=== PATIENT | female | born 1945 | race Caucasian/White ===

== ENCOUNTER 2017-11-13 14:50 | Inpatient (IN) | payer BC, MEDICARE ==
[~2017-11-13] VITALS: Ht 162.6 cm; Wt 96.7 kg
[~2017-11-13 14:50] MED LIST: CLOP75TA15 PO; COENZYME Q10 PO; DILT120T13 PO; DILT180C69 PO; ELIQUIS; ESOM20CA PO; FURO40TA5 PO; INVOKANA; ISOS30TA6 PO; LEVVL SUBCUT; NIAC500T5 PO; OMEP40CA34 PO
[2017-11-13] MEDS ORDERED: DEXTROSE 50% WATER 50ML SYRINGE IV PRN (17:30)
[2017-11-13 17:47] VITALS: BP 114/68
[2017-11-13] MEDS: APIXABAN 5 MG TABLET PO SCH (18:53)
[2017-11-13 20:00] VITALS: BP 104/53
[2017-11-13] MEDS: INSULIN LISPRO 100 UNITS/ML SUBCUT SCH (21:00)
[2017-11-13] MEDS ORDERED: BLOOD SUGAR DIAGNOSTIC STRIP TEST SCH (21:00)
[2017-11-13] MEDS: BLOOD SUGAR DIAGNOSTIC STRIP TEST SCH (21:59)
[2017-11-13] MEDS: PROMETHAZINE/DEXTROMETHORPHAN 6.25-15MG/5ML BOTTLE 120ML PO PRN (23:00)
[2017-11-13] MEDS: INSULIN GLARGINE UD 100 UNITS/ML SYR SUBCUT SCH (23:05)
[2017-11-13] MEDS: IPRATROPIUM/ALBUTEROL 0.5-3(2.5)MG/3ML NEB HHN PRN (23:17)
[2017-11-14] MEDS: IPRATROPIUM/ALBUTEROL 0.5-3(2.5)MG/3ML NEB HHN PRN ×4 (03:52→21:25)
[2017-11-14] MEDS: PANTOPRAZOLE 40MG DR TABLET PO SCH (06:38)
[2017-11-14] MEDS: BLOOD SUGAR DIAGNOSTIC STRIP TEST SCH ×4 (06:38→21:26)
[2017-11-14] MEDS: INSULIN LISPRO 100 UNITS/ML SUBCUT SCH ×4 (06:48→21:29)
[2017-11-14] MEDS ORDERED: OMEPRAZOLE 20MG CAPSULE EXTENDED RELEASE PO SCH (07:00)
[2017-11-14 07:05] LABS: BASOPHILS % 0.9 % (0.0-2.0); EOSINOPHILS % 1.3 % (0.0-5.0); HEMATOCRIT. 25.4 % (36.0-48.0); HEMOGLOBIN. 7.8 g/dL (12.0-16.0); LYMPHOCYTES % 16.2 % (20.0-50.0); MEAN CORPUSCULAR HEMOGLOBIN 24.8 pg (28.0-32.0); MEAN CORPUSCULAR VOLUME 80.2 fL (81.0-99.0); MEAN PLATELET VOLUME 8.1 fl (7.4-10.4); MONOCYTES % 11.1 % (2.0-8.0); NEUTROPHILS % 70.5 % (40.0-76.0); PLATELET 484 x1000/uL (130-400); RED BLOOD CELL COUNT 3.17 mill/uL (4.2-5.4); RED CELL DISTRIBUTION WIDTH 21.2 % (11.6-14.6)
[2017-11-14 07:25] LABS: CLARITY URINE CLOUDY (CLEAR); COLOR URINE YELLOW (YELLOW); KETONES URINE TRACE (NEGATIVE); LEUKOCYTE ESTERASE URINE 1+ (NEGATIVE); NITRITE URINE NEGATIVE (NEGATIVE); OCCULT BLOOD URINE NEGATIVE (NEGATIVE); PROTEIN URINE TRACE (NEGATIVE); SPECIFIC GRAVITY URINE 1.023 (1.005-1.030); UROBILINOGEN URINE 0.2 E.U./dL (0.2-1.0)
[2017-11-14 07:39] LABS: DIGOXIN 0.9 ng/mL (0.9-2.0)
[2017-11-14 08:45] VITALS: BP 112/73
[2017-11-14] MEDS: FUROSEMIDE 80MG TABLET PO SCH (08:53)
[2017-11-14] MEDS: CLOPIDOGREL 75MG TABLET PO SCH (08:53)
[2017-11-14] MEDS: DOCUSATE SODIUM 250MG CAPSULE PO SCH (08:53)
[2017-11-14] MEDS: FERROUS SULFATE 325MG TABLET PO SCH ×3 (08:54→17:29)
[2017-11-14] MEDS: APIXABAN 5 MG TABLET PO SCH ×2 (08:54→17:29)
[2017-11-14] MEDS: AZITHROMYCIN 500 MG TABLET PO SCH (09:36)
[2017-11-14] MEDS: DILTIAZEM HCL 120MG CAPSULE CD 24HR PO SCH (09:53)
[2017-11-14] MEDS: CEFTRIAXONE 2 G in DEXTROSE 5% WATER 50 ML IV SCH (12:18)
[2017-11-14] MEDS: PROMETHAZINE/DEXTROMETHORPHAN 6.25-15MG/5ML BOTTLE 120ML PO PRN ×2 (13:34→22:54)
[2017-11-14] MEDS ORDERED: BARIUM SULFATE 176 GM SUSP.RECON ONE (14:14)
[2017-11-14] MEDS: DIGOXIN 125MCG TABLET PO SCH (17:30)
[2017-11-14 20:00] VITALS: BP 104/51
[2017-11-14] MEDS: INSULIN GLARGINE UD 100 UNITS/ML SYR SUBCUT SCH (21:30)
[2017-11-15] MEDS: PANTOPRAZOLE 40MG DR TABLET PO SCH (06:28)
[2017-11-15] MEDS: BLOOD SUGAR DIAGNOSTIC STRIP TEST SCH ×4 (06:31→21:24)
[2017-11-15 06:54] LABS: BASOPHILS % 0.8 % (0.0-2.0); EOSINOPHILS % 1.8 % (0.0-5.0); HEMATOCRIT. 26.8 % (36.0-48.0); LYMPHOCYTES % 13.3 % (20.0-50.0); MEAN CORPUSCULAR HEMOGLOBIN 24.3 pg (28.0-32.0); MEAN CORPUSCULAR VOLUME 81.3 fL (81.0-99.0); MEAN PLATELET VOLUME 8.1 fl (7.4-10.4); MONOCYTES % 10.4 % (2.0-8.0); NEUTROPHILS % 73.7 % (40.0-76.0); PLATELET 450 x1000/uL (130-400); RED BLOOD CELL COUNT 3.29 mill/uL (4.2-5.4); RED CELL DISTRIBUTION WIDTH 21.2 % (11.6-14.6)
[2017-11-15] MEDS: INSULIN LISPRO 100 UNITS/ML SUBCUT SCH ×4 (07:09→21:34)
[2017-11-15 08:00] VITALS: BP 104/51
[2017-11-15] MEDS ORDERED: POTASSIUM CHLORIDE 20MEQ TABLET SR PO ONE (08:00)
[2017-11-15] MEDS: POTASSIUM CHLORIDE 20MEQ TABLET SR PO SCH (08:48)
[2017-11-15] MEDS: DOCUSATE SODIUM 250MG CAPSULE PO SCH (08:49)
[2017-11-15] MEDS: FERROUS SULFATE 325MG TABLET PO SCH ×3 (08:49→16:30)
[2017-11-15] MEDS: FUROSEMIDE 80MG TABLET PO SCH (08:49)
[2017-11-15] MEDS: AZITHROMYCIN 500 MG TABLET PO SCH (08:49)
[2017-11-15] MEDS: APIXABAN 5 MG TABLET PO SCH ×2 (08:50→16:30)
[2017-11-15] MEDS: CLOPIDOGREL 75MG TABLET PO SCH (08:50)
[2017-11-15] MEDS: DILTIAZEM HCL 120MG CAPSULE CD 24HR PO SCH (08:54)
[2017-11-15] MEDS: PROMETHAZINE/DEXTROMETHORPHAN 6.25-15MG/5ML BOTTLE 120ML PO PRN (08:54)
[2017-11-15] MEDS: CEFTRIAXONE 2 G in DEXTROSE 5% WATER 50 ML IV SCH (11:27)
[2017-11-15] MEDS: IPRATROPIUM/ALBUTEROL 0.5-3(2.5)MG/3ML NEB HHN SCH (20:05)
[2017-11-15] MEDS: INSULIN GLARGINE UD 100 UNITS/ML SYR SUBCUT SCH (21:35)
[2017-11-16] MEDS: IPRATROPIUM/ALBUTEROL 0.5-3(2.5)MG/3ML NEB HHN SCH ×4 (00:50→21:50)
[2017-11-16] MEDS: BLOOD SUGAR DIAGNOSTIC STRIP TEST SCH ×4 (06:53→21:36)
[2017-11-16] MEDS: INSULIN LISPRO 100 UNITS/ML SUBCUT SCH ×4 (06:53→21:00)
[2017-11-16] MEDS: PANTOPRAZOLE 40MG DR TABLET PO SCH (06:53)
[2017-11-16 08:00] VITALS: BP 105/46
[2017-11-16] MEDS: DOCUSATE SODIUM 250MG CAPSULE PO SCH (10:21)
[2017-11-16] MEDS: FERROUS SULFATE 325MG TABLET PO SCH ×3 (10:22→18:10)
[2017-11-16] MEDS: CLOPIDOGREL 75MG TABLET PO SCH (10:22)
[2017-11-16] MEDS: POTASSIUM CHLORIDE 20MEQ TABLET SR PO SCH (10:22)
[2017-11-16] MEDS: APIXABAN 5 MG TABLET PO SCH ×2 (10:22→18:10)
[2017-11-16] MEDS: FUROSEMIDE 80MG TABLET PO SCH (10:23)
[2017-11-16] MEDS: DILTIAZEM HCL 120MG CAPSULE CD 24HR PO SCH (10:23)
[2017-11-16] MEDS: PROMETHAZINE/DEXTROMETHORPHAN 6.25-15MG/5ML BOTTLE 120ML PO PRN (12:39)
[2017-11-16] MEDS: DIGOXIN 125MCG TABLET PO SCH (18:11)
[2017-11-16 20:00] VITALS: BP 108/56
[2017-11-16] MEDS: INSULIN GLARGINE UD 100 UNITS/ML SYR SUBCUT SCH (21:36)
[2017-11-17] MEDS: IPRATROPIUM/ALBUTEROL 0.5-3(2.5)MG/3ML NEB HHN SCH ×5 (01:13→21:13)
[2017-11-17] MEDS: BLOOD SUGAR DIAGNOSTIC STRIP TEST SCH ×4 (06:27→21:38)
[2017-11-17] MEDS: INSULIN LISPRO 100 UNITS/ML SUBCUT SCH ×4 (06:31→21:53)
[2017-11-17] MEDS: PANTOPRAZOLE 40MG DR TABLET PO SCH (06:31)
[2017-11-17 07:17] LABS: BASOPHILS % 0.7 % (0.0-2.0); EOSINOPHILS % 2.3 % (0.0-5.0); HEMOGLOBIN. 7.4 g/dL (12.0-16.0); LYMPHOCYTES % 16.3 % (20.0-50.0); MEAN CORPUSCULAR HEMOGLOBIN 25.5 pg (28.0-32.0); MEAN CORPUSCULAR VOLUME 82.1 fL (81.0-99.0); MEAN PLATELET VOLUME 7.9 fl (7.4-10.4); MONOCYTES % 9.1 % (2.0-8.0); NEUTROPHILS % 71.6 % (40.0-76.0); PLATELET 361 x1000/uL (130-400); RED BLOOD CELL COUNT 2.92 mill/uL (4.2-5.4); RED CELL DISTRIBUTION WIDTH 21.9 % (11.6-14.6)
[2017-11-17 07:41] LABS: CHLORIDE 106 mEq/L (98-107)
[2017-11-17 08:00] VITALS: BP 113/61
[2017-11-17] MEDS: FUROSEMIDE 80MG TABLET PO SCH (09:01)
[2017-11-17] MEDS: DILTIAZEM HCL 120MG CAPSULE CD 24HR PO SCH (09:03)
[2017-11-17] MEDS: APIXABAN 5 MG TABLET PO SCH ×2 (09:03→17:15)
[2017-11-17] MEDS: POTASSIUM CHLORIDE 20MEQ TABLET SR PO SCH (09:04)
[2017-11-17] MEDS: DOCUSATE SODIUM 250MG CAPSULE PO SCH (09:04)
[2017-11-17] MEDS: CLOPIDOGREL 75MG TABLET PO SCH (09:04)
[2017-11-17] MEDS: FERROUS SULFATE 325MG TABLET PO SCH ×3 (09:04→17:15)
[2017-11-17] MEDS: PROMETHAZINE/DEXTROMETHORPHAN 6.25-15MG/5ML BOTTLE 120ML PO PRN (13:41)
[2017-11-17] MEDS: INSULIN GLARGINE UD 100 UNITS/ML SYR SUBCUT SCH (21:53)
[2017-11-18] MEDS: PROMETHAZINE/DEXTROMETHORPHAN 6.25-15MG/5ML BOTTLE 120ML PO PRN ×4 (01:08→21:45)
[2017-11-18] MEDS: IPRATROPIUM/ALBUTEROL 0.5-3(2.5)MG/3ML NEB HHN SCH ×4 (02:32→21:21)
[2017-11-18] MEDS: BLOOD SUGAR DIAGNOSTIC STRIP TEST SCH ×4 (06:08→21:30)
[2017-11-18] MEDS: PANTOPRAZOLE 40MG DR TABLET PO SCH (06:18)
[2017-11-18] MEDS: INSULIN LISPRO 100 UNITS/ML SUBCUT SCH ×4 (06:19→21:52)
[2017-11-18 08:00] VITALS: BP 110/57
[2017-11-18 08:11] LABS: HEMATOCRIT. 24.3 % (36.0-48.0); HEMOGLOBIN. 7.4 g/dL (12.0-16.0); MEAN CORPUSCULAR HEMOGLOBIN 24.6 pg (28.0-32.0); MEAN CORPUSCULAR VOLUME 80.5 fL (81.0-99.0); MEAN PLATELET VOLUME 8.2 fl (7.4-10.4); PLATELET 356 x1000/uL (130-400); RED BLOOD CELL COUNT 3.01 mill/uL (4.2-5.4); RED CELL DISTRIBUTION WIDTH 21.5 % (11.6-14.6)
[2017-11-18 08:42] LABS: CHLORIDE 104 mEq/L (98-107)
[2017-11-18] MEDS: FUROSEMIDE 80MG TABLET PO SCH (08:44)
[2017-11-18] MEDS: FERROUS SULFATE 325MG TABLET PO SCH ×3 (08:44→17:40)
[2017-11-18] MEDS: DOCUSATE SODIUM 250MG CAPSULE PO SCH (08:44)
[2017-11-18] MEDS: POTASSIUM CHLORIDE 20MEQ TABLET SR PO SCH (08:44)
[2017-11-18] MEDS: CLOPIDOGREL 75MG TABLET PO SCH (08:44)
[2017-11-18] MEDS: APIXABAN 5 MG TABLET PO SCH ×2 (08:44→17:40)
[2017-11-18] MEDS: DILTIAZEM HCL 120MG CAPSULE CD 24HR PO SCH (08:46)
[2017-11-18] MEDS: DIGOXIN 125MCG TABLET PO SCH (17:40)
[2017-11-18 20:00] VITALS: BP 102/62
[2017-11-18] MEDS: INSULIN GLARGINE UD 100 UNITS/ML SYR SUBCUT SCH (21:49)
[2017-11-18 22:22] LABS: NUCLEATED RED BLOOD CELLS 1 /100 WBC; PLATELET ESTIMATE NORMAL
[2017-11-19] MEDS: IPRATROPIUM/ALBUTEROL 0.5-3(2.5)MG/3ML NEB HHN SCH ×4 (01:28→22:15)
[2017-11-19] MEDS: BLOOD SUGAR DIAGNOSTIC STRIP TEST SCH ×4 (06:08→21:00)
[2017-11-19] MEDS: PANTOPRAZOLE 40MG DR TABLET PO SCH (06:12)
[2017-11-19 06:43] LABS: HEMATOCRIT. 23.8 % (36.0-48.0); HEMOGLOBIN. 7.3 g/dL (12.0-16.0); MEAN CORPUSCULAR HEMOGLOBIN 24.7 pg (28.0-32.0); MEAN CORPUSCULAR VOLUME 80.9 fL (81.0-99.0); MEAN PLATELET VOLUME 8.3 fl (7.4-10.4); PLATELET 327 x1000/uL (130-400); RED BLOOD CELL COUNT 2.94 mill/uL (4.2-5.4); RED CELL DISTRIBUTION WIDTH 21.9 % (11.6-14.6)
[2017-11-19] MEDS: INSULIN LISPRO 100 UNITS/ML SUBCUT SCH ×4 (06:48→22:02)
[2017-11-19 07:00] LABS: CHLORIDE 102 mEq/L (98-107)
[2017-11-19 08:33] VITALS: BP 98/45
[2017-11-19 08:57] LABS: PLATELET ESTIMATE NORMAL
[2017-11-19] MEDS: DOCUSATE SODIUM 250MG CAPSULE PO SCH (09:07)
[2017-11-19] MEDS: FERROUS SULFATE 325MG TABLET PO SCH ×3 (09:07→17:02)
[2017-11-19] MEDS: APIXABAN 5 MG TABLET PO SCH ×2 (09:07→17:02)
[2017-11-19] MEDS: POTASSIUM CHLORIDE 20MEQ TABLET SR PO SCH (09:07)
[2017-11-19] MEDS: CLOPIDOGREL 75MG TABLET PO SCH (09:07)
[2017-11-19] MEDS: DILTIAZEM HCL 120MG CAPSULE CD 24HR PO SCH (09:09)
[2017-11-19] MEDS: FUROSEMIDE 80MG TABLET PO SCH (09:09)
[2017-11-19] MEDS: PROMETHAZINE/DEXTROMETHORPHAN 6.25-15MG/5ML BOTTLE 120ML PO PRN ×2 (09:22→21:55)
[2017-11-19] MEDS: FLUTICASONE PROPIONATE 50MCG/SPRAY BOTTLE BOTHNSTRLS SCH ×2 (17:06→21:56)
[2017-11-19 20:00] VITALS: BP 104/50
[2017-11-19] MEDS: INSULIN GLARGINE UD 100 UNITS/ML SYR SUBCUT SCH (22:01)
[2017-11-20] MEDS: THROAT LOZENGES-BENZOCAINE/MENTH/CETYLPYRD CL LOZENGES MM PRN ×2 (00:01→20:11)
[2017-11-20] MEDS: IPRATROPIUM/ALBUTEROL 0.5-3(2.5)MG/3ML NEB HHN SCH ×4 (04:20→22:16)
[2017-11-20] MEDS: BLOOD SUGAR DIAGNOSTIC STRIP TEST SCH ×4 (06:03→21:00)
[2017-11-20] MEDS: INSULIN LISPRO 100 UNITS/ML SUBCUT SCH ×4 (06:55→22:14)
[2017-11-20 08:00] VITALS: BP 110/65
[2017-11-20] MEDS: DOCUSATE SODIUM 250MG CAPSULE PO SCH (09:37)
[2017-11-20] MEDS: FERROUS SULFATE 325MG TABLET PO SCH ×3 (09:38→17:29)
[2017-11-20] MEDS: DILTIAZEM HCL 120MG CAPSULE CD 24HR PO SCH (09:39)
[2017-11-20] MEDS: FUROSEMIDE 80MG TABLET PO SCH (09:39)
[2017-11-20] MEDS: CLOPIDOGREL 75MG TABLET PO SCH (09:39)
[2017-11-20] MEDS: FAMOTIDINE 20MG TABLET PO SCH ×2 (09:39→22:09)
[2017-11-20] MEDS: POTASSIUM CHLORIDE 20MEQ TABLET SR PO SCH (09:39)
[2017-11-20] MEDS: APIXABAN 5 MG TABLET PO SCH ×2 (09:40→17:29)
[2017-11-20] MEDS: FLUTICASONE PROPIONATE 50MCG/SPRAY BOTTLE BOTHNSTRLS SCH ×2 (09:40→22:09)
[2017-11-20] MEDS: PROMETHAZINE/DEXTROMETHORPHAN 6.25-15MG/5ML BOTTLE 120ML PO PRN (10:30)
[2017-11-20] MEDS: DIGOXIN 125MCG TABLET PO SCH (17:29)
[2017-11-20 20:00] VITALS: BP 112/73
[2017-11-20] MEDS: INSULIN GLARGINE UD 100 UNITS/ML SYR SUBCUT SCH (22:16)
[2017-11-21] MEDS: PROMETHAZINE/DEXTROMETHORPHAN 6.25-15MG/5ML BOTTLE 120ML PO PRN ×2 (01:34→08:57)
[2017-11-21] MEDS: IPRATROPIUM/ALBUTEROL 0.5-3(2.5)MG/3ML NEB HHN SCH ×4 (02:44→21:08)
[2017-11-21] MEDS: BLOOD SUGAR DIAGNOSTIC STRIP TEST SCH ×4 (06:32→20:07)
[2017-11-21 08:23] VITALS: BP 91/44
[2017-11-21] MEDS: POTASSIUM CHLORIDE 20MEQ TABLET SR PO SCH (08:55)
[2017-11-21] MEDS: FAMOTIDINE 20MG TABLET PO SCH ×2 (08:55→21:49)
[2017-11-21] MEDS: INSULIN LISPRO 100 UNITS/ML SUBCUT SCH ×4 (08:56→21:50)
[2017-11-21] MEDS: CLOPIDOGREL 75MG TABLET PO SCH (08:56)
[2017-11-21] MEDS: FERROUS SULFATE 325MG TABLET PO SCH ×3 (08:56→18:07)
[2017-11-21] MEDS: DOCUSATE SODIUM 250MG CAPSULE PO SCH (08:56)
[2017-11-21] MEDS: FUROSEMIDE 80MG TABLET PO SCH (08:56)
[2017-11-21] MEDS: DILTIAZEM HCL 120MG CAPSULE CD 24HR PO SCH (08:56)
[2017-11-21] MEDS: APIXABAN 5 MG TABLET PO SCH ×2 (08:56→18:07)
[2017-11-21] MEDS: FLUTICASONE PROPIONATE 50MCG/SPRAY BOTTLE BOTHNSTRLS SCH ×2 (08:57→21:52)
[2017-11-21] MEDS: THROAT LOZENGES-BENZOCAINE/MENTH/CETYLPYRD CL LOZENGES MM PRN ×2 (13:08→20:07)
[2017-11-21 20:00] VITALS: BP 107/44
[2017-11-21] MEDS: INSULIN GLARGINE UD 100 UNITS/ML SYR SUBCUT SCH (21:50)
[2017-11-22] MEDS: IPRATROPIUM/ALBUTEROL 0.5-3(2.5)MG/3ML NEB HHN SCH ×4 (01:10→20:52)
[2017-11-22] MEDS: BLOOD SUGAR DIAGNOSTIC STRIP TEST SCH ×4 (07:03→21:07)
[2017-11-22] MEDS: INSULIN LISPRO 100 UNITS/ML SUBCUT SCH ×4 (07:04→21:11)
[2017-11-22 08:00] VITALS: BP 96/66
[2017-11-22] MEDS: DOCUSATE SODIUM 250MG CAPSULE PO SCH (09:39)
[2017-11-22] MEDS: FAMOTIDINE 20MG TABLET PO SCH ×2 (09:39→21:07)
[2017-11-22] MEDS: CLOPIDOGREL 75MG TABLET PO SCH (09:39)
[2017-11-22] MEDS: APIXABAN 5 MG TABLET PO SCH ×2 (09:40→17:42)
[2017-11-22] MEDS: FERROUS SULFATE 325MG TABLET PO SCH ×3 (09:40→17:42)
[2017-11-22] MEDS: POTASSIUM CHLORIDE 20MEQ TABLET SR PO SCH (09:40)
[2017-11-22] MEDS: FUROSEMIDE 80MG TABLET PO SCH (09:40)
[2017-11-22] MEDS: DILTIAZEM HCL 90MG CAPSULE SR 12HR PO SCH (09:41)
[2017-11-22] MEDS: FLUTICASONE PROPIONATE 50MCG/SPRAY BOTTLE BOTHNSTRLS SCH ×2 (09:49→21:07)
[2017-11-22] MEDS: PROMETHAZINE/DEXTROMETHORPHAN 6.25-15MG/5ML BOTTLE 120ML PO PRN ×2 (09:50)
[2017-11-22 09:52] VITALS: BP 115/67
[2017-11-22] MEDS: DIGOXIN 125MCG TABLET PO SCH (17:42)
[2017-11-22] MEDS: THROAT LOZENGES-BENZOCAINE/MENTH/CETYLPYRD CL LOZENGES MM PRN (17:44)
[2017-11-22 20:00] VITALS: BP 115/47
[2017-11-22] MEDS: INSULIN GLARGINE UD 100 UNITS/ML SYR SUBCUT SCH (21:12)
[2017-11-23] MEDS: IPRATROPIUM/ALBUTEROL 0.5-3(2.5)MG/3ML NEB HHN SCH ×4 (02:23→21:23)
[2017-11-23] MEDS: PROMETHAZINE/DEXTROMETHORPHAN 6.25-15MG/5ML BOTTLE 120ML PO PRN (02:42)
[2017-11-23] MEDS: THROAT LOZENGES-BENZOCAINE/MENTH/CETYLPYRD CL LOZENGES MM PRN ×2 (06:15→19:45)
[2017-11-23] MEDS: BLOOD SUGAR DIAGNOSTIC STRIP TEST SCH ×4 (06:18→20:59)
[2017-11-23] MEDS: INSULIN LISPRO 100 UNITS/ML SUBCUT SCH ×4 (06:46→21:14)
[2017-11-23 08:00] VITALS: BP 117/69
[2017-11-23] MEDS: DOCUSATE SODIUM 250MG CAPSULE PO SCH (09:38)
[2017-11-23] MEDS: FUROSEMIDE 80MG TABLET PO SCH (09:38)
[2017-11-23] MEDS: APIXABAN 5 MG TABLET PO SCH ×2 (09:38→17:25)
[2017-11-23] MEDS: FAMOTIDINE 20MG TABLET PO SCH (09:38)
[2017-11-23] MEDS: POTASSIUM CHLORIDE 20MEQ TABLET SR PO SCH (09:38)
[2017-11-23] MEDS: DILTIAZEM HCL 90MG CAPSULE SR 12HR PO SCH (09:39)
[2017-11-23] MEDS: CLOPIDOGREL 75MG TABLET PO SCH (09:39)
[2017-11-23] MEDS: FLUTICASONE PROPIONATE 50MCG/SPRAY BOTTLE BOTHNSTRLS SCH ×2 (09:44→21:00)
[2017-11-23] MEDS: FERROUS SULFATE 325MG TABLET PO SCH ×3 (09:44→17:25)
[2017-11-23] MEDS: PHENAZOPYRIDINE HCL 100MG TABLET PO SCH ×2 (12:21→17:25)
[2017-11-23] MEDS: LEVOFLOXACIN 500MG TABLET PO SCH (12:21)
[2017-11-23] MEDS ORDERED: FAMOTIDINE 20MG TABLET PO NR (20:00)
[2017-11-23 20:10] VITALS: BP 100/48
[2017-11-23] MEDS: INSULIN GLARGINE UD 100 UNITS/ML SYR SUBCUT SCH (21:14)
[2017-11-24] MEDS: PROMETHAZINE/DEXTROMETHORPHAN 6.25-15MG/5ML BOTTLE 120ML PO PRN ×2 (00:32→21:45)
[2017-11-24] MEDS: IPRATROPIUM/ALBUTEROL 0.5-3(2.5)MG/3ML NEB HHN SCH ×4 (01:21→22:02)
[2017-11-24] MEDS: PANTOPRAZOLE 40MG DR TABLET PO SCH (06:12)
[2017-11-24] MEDS: BLOOD SUGAR DIAGNOSTIC STRIP TEST SCH ×4 (06:12→21:37)
[2017-11-24] MEDS: THROAT LOZENGES-BENZOCAINE/MENTH/CETYLPYRD CL LOZENGES MM PRN (06:13)
[2017-11-24 06:52] LABS: BASOPHILS % 0.5 % (0.0-2.0); EOSINOPHILS % 3.6 % (0.0-5.0); HEMATOCRIT. 24.2 % (36.0-48.0); HEMOGLOBIN. 7.4 g/dL (12.0-16.0); LYMPHOCYTES % 16.3 % (20.0-50.0); MEAN CORPUSCULAR HEMOGLOBIN 24.9 pg (28.0-32.0); MEAN CORPUSCULAR VOLUME 81.3 fL (81.0-99.0); MEAN PLATELET VOLUME 8.4 fl (7.4-10.4); NEUTROPHILS % 70.6 % (40.0-76.0); PLATELET 307 x1000/uL (130-400); RED BLOOD CELL COUNT 2.98 mill/uL (4.2-5.4); RED CELL DISTRIBUTION WIDTH 22.3 % (11.6-14.6)
[2017-11-24] MEDS: INSULIN LISPRO 100 UNITS/ML SUBCUT SCH ×4 (07:07→21:49)
[2017-11-24 08:21] VITALS: BP 114/56
[2017-11-24] MEDS: POTASSIUM CHLORIDE 20MEQ TABLET SR PO SCH (08:47)
[2017-11-24] MEDS: DOCUSATE SODIUM 250MG CAPSULE PO SCH (08:47)
[2017-11-24] MEDS: FERROUS SULFATE 325MG TABLET PO SCH ×3 (08:47→17:18)
[2017-11-24] MEDS: PHENAZOPYRIDINE HCL 100MG TABLET PO SCH ×3 (08:47→17:17)
[2017-11-24] MEDS: APIXABAN 5 MG TABLET PO SCH ×2 (08:48→17:17)
[2017-11-24] MEDS: CLOPIDOGREL 75MG TABLET PO SCH (08:48)
[2017-11-24] MEDS: DILTIAZEM HCL 90MG CAPSULE SR 12HR PO SCH (08:48)
[2017-11-24] MEDS: FUROSEMIDE 80MG TABLET PO SCH (08:48)
[2017-11-24] MEDS: FLUTICASONE PROPIONATE 50MCG/SPRAY BOTTLE BOTHNSTRLS SCH ×2 (08:49→21:00)
[2017-11-24] MEDS: LEVOFLOXACIN 500MG TABLET PO SCH (10:47)
[2017-11-24] MEDS: DIGOXIN 125MCG TABLET PO SCH (17:18)
[2017-11-24 20:00] VITALS: BP 110/45
[2017-11-24] MEDS: INSULIN GLARGINE UD 100 UNITS/ML SYR SUBCUT SCH (21:49)
[2017-11-25] MEDS: IPRATROPIUM/ALBUTEROL 0.5-3(2.5)MG/3ML NEB HHN SCH ×4 (03:40→21:46)
[2017-11-25] MEDS: PROMETHAZINE/DEXTROMETHORPHAN 6.25-15MG/5ML BOTTLE 120ML PO PRN ×2 (06:20→19:55)
[2017-11-25] MEDS: PANTOPRAZOLE 40MG DR TABLET PO SCH (06:20)
[2017-11-25] MEDS: INSULIN LISPRO 100 UNITS/ML SUBCUT SCH ×4 (06:24→21:00)
[2017-11-25] MEDS: BLOOD SUGAR DIAGNOSTIC STRIP TEST SCH ×4 (06:40→21:31)
[2017-11-25 08:00] VITALS: BP 93/45
[2017-11-25] MEDS: FUROSEMIDE 80MG TABLET PO SCH (09:00)
[2017-11-25] MEDS: DILTIAZEM HCL 90MG CAPSULE SR 12HR PO SCH (09:00)
[2017-11-25] MEDS: APIXABAN 5 MG TABLET PO SCH ×2 (09:05→17:03)
[2017-11-25] MEDS: POTASSIUM CHLORIDE 20MEQ TABLET SR PO SCH (09:06)
[2017-11-25] MEDS: FERROUS SULFATE 325MG TABLET PO SCH ×3 (09:06→17:03)
[2017-11-25] MEDS: DOCUSATE SODIUM 250MG CAPSULE PO SCH (09:06)
[2017-11-25] MEDS: PHENAZOPYRIDINE HCL 100MG TABLET PO SCH ×2 (09:06→12:24)
[2017-11-25] MEDS: CLOPIDOGREL 75MG TABLET PO SCH (09:06)
[2017-11-25 09:15] LABS: BASOPHILS % 0.4 % (0.0-2.0); EOSINOPHILS % 3.1 % (0.0-5.0); HEMATOCRIT. 27.4 % (36.0-48.0); HEMOGLOBIN. 8.1 g/dL (12.0-16.0); MEAN CORPUSCULAR HEMOGLOBIN 24.4 pg (28.0-32.0); MEAN CORPUSCULAR VOLUME 81.9 fL (81.0-99.0); MEAN PLATELET VOLUME 8.4 fl (7.4-10.4); NEUTROPHILS % 74.5 % (40.0-76.0); PLATELET 364 x1000/uL (130-400); RED BLOOD CELL COUNT 3.34 mill/uL (4.2-5.4); RED CELL DISTRIBUTION WIDTH 22.6 % (11.6-14.6)
[2017-11-25] MEDS: LEVOFLOXACIN 500MG TABLET PO SCH (11:19)
[2017-11-25] MEDS ORDERED: POTASSIUM CHLORIDE 20MEQ TABLET SR PO SCH (11:45)
[2017-11-25] MEDS ORDERED: METOLAZONE 10MG TABLET PO SCH (11:45)
[2017-11-25 20:52] VITALS: BP 102/57
[2017-11-25] MEDS: INSULIN GLARGINE UD 100 UNITS/ML SYR SUBCUT SCH (21:35)
[2017-11-26] MEDS: IPRATROPIUM/ALBUTEROL 0.5-3(2.5)MG/3ML NEB HHN SCH ×4 (03:30→20:54)
[2017-11-26] MEDS: THROAT LOZENGES-BENZOCAINE/MENTH/CETYLPYRD CL LOZENGES MM PRN ×2 (04:47→22:15)
[2017-11-26] MEDS: BLOOD SUGAR DIAGNOSTIC STRIP TEST SCH ×4 (06:16→21:00)
[2017-11-26] MEDS: PANTOPRAZOLE 40MG DR TABLET PO SCH (06:16)
[2017-11-26] MEDS: INSULIN LISPRO 100 UNITS/ML SUBCUT SCH ×4 (06:25→22:20)
[2017-11-26 08:00] VITALS: BP 111/84
[2017-11-26] MEDS: DILTIAZEM HCL 90MG CAPSULE SR 12HR PO SCH (09:56)
[2017-11-26] MEDS: APIXABAN 5 MG TABLET PO SCH ×2 (09:57→18:19)
[2017-11-26] MEDS: DOCUSATE SODIUM 250MG CAPSULE PO SCH (09:57)
[2017-11-26] MEDS: FERROUS SULFATE 325MG TABLET PO SCH ×3 (09:57→18:19)
[2017-11-26] MEDS: FUROSEMIDE 80MG TABLET PO SCH (09:58)
[2017-11-26] MEDS: POTASSIUM CHLORIDE 20MEQ TABLET SR PO SCH (10:07)
[2017-11-26] MEDS: CLOPIDOGREL 75MG TABLET PO SCH (10:07)
[2017-11-26] MEDS: LEVOFLOXACIN 500MG TABLET PO SCH (11:27)
[2017-11-26] MEDS: DIGOXIN 125MCG TABLET PO SCH (18:19)
[2017-11-26 20:00] VITALS: BP 117/61
[2017-11-26] MEDS ORDERED: FLUTICASONE PROPIONATE 50MCG/SPRAY BOTTLE BOTHNSTRLS SCH (21:00)
[2017-11-26] MEDS: FLUTICASONE PROPIONATE 50MCG/SPRAY BOTTLE BOTHNSTRLS SCH (22:15)
[2017-11-26] MEDS: INSULIN GLARGINE UD 100 UNITS/ML SYR SUBCUT SCH (22:22)
[2017-11-27] MEDS: IPRATROPIUM/ALBUTEROL 0.5-3(2.5)MG/3ML NEB HHN SCH ×5 (02:14→21:26)
[2017-11-27] MEDS: BLOOD SUGAR DIAGNOSTIC STRIP TEST SCH ×4 (05:48→21:00)
[2017-11-27] MEDS: PROMETHAZINE/DEXTROMETHORPHAN 6.25-15MG/5ML BOTTLE 120ML PO PRN (06:01)
[2017-11-27] MEDS: PANTOPRAZOLE 40MG DR TABLET PO SCH (06:02)
[2017-11-27] MEDS: INSULIN LISPRO 100 UNITS/ML SUBCUT SCH ×4 (06:08→22:10)
[2017-11-27 08:00] VITALS: BP 114/69
[2017-11-27] MEDS ORDERED: ONDANSETRON 4MG ODT PO PRN (09:00)
[2017-11-27] MEDS: FERROUS SULFATE 325MG TABLET PO SCH ×3 (09:44→17:18)
[2017-11-27] MEDS: DOCUSATE SODIUM 250MG CAPSULE PO SCH (09:44)
[2017-11-27] MEDS: POTASSIUM CHLORIDE 20MEQ TABLET SR PO SCH (09:47)
[2017-11-27] MEDS: FUROSEMIDE 80MG TABLET PO SCH (09:47)
[2017-11-27] MEDS: CLOPIDOGREL 75MG TABLET PO SCH (09:47)
[2017-11-27] MEDS: APIXABAN 5 MG TABLET PO SCH ×2 (09:47→17:18)
[2017-11-27] MEDS: DILTIAZEM HCL 90MG CAPSULE SR 12HR PO SCH (09:49)
[2017-11-27] MEDS: FLUTICASONE PROPIONATE 50MCG/SPRAY BOTTLE BOTHNSTRLS SCH ×2 (09:57→21:59)
[2017-11-27] MEDS: LEVOFLOXACIN 500MG TABLET PO SCH (10:14)
[2017-11-27] MEDS ORDERED: FURO80TA3 PO (14:14)
[2017-11-27] MEDS ORDERED: POTA20TA82 PO (14:14)
[2017-11-27 20:00] VITALS: BP 108/69
[2017-11-27] MEDS: THROAT LOZENGES-BENZOCAINE/MENTH/CETYLPYRD CL LOZENGES MM PRN (21:59)
[2017-11-27] MEDS: INSULIN GLARGINE UD 100 UNITS/ML SYR SUBCUT SCH (22:06)
[2017-11-28] MEDS: IPRATROPIUM/ALBUTEROL 0.5-3(2.5)MG/3ML NEB HHN SCH ×3 (01:08→13:56)
[2017-11-28] MEDS: BLOOD SUGAR DIAGNOSTIC STRIP TEST SCH ×3 (06:04→17:20)
[2017-11-28] MEDS: PANTOPRAZOLE 40MG DR TABLET PO SCH (06:04)
[2017-11-28] MEDS: INSULIN LISPRO 100 UNITS/ML SUBCUT SCH ×3 (06:04→17:00)
[2017-11-28 08:00] VITALS: BP 103/68
[2017-11-28] MEDS: DILTIAZEM HCL 90MG CAPSULE SR 12HR PO SCH (09:00)
[2017-11-28] MEDS: DOCUSATE SODIUM 250MG CAPSULE PO SCH (09:27)
[2017-11-28] MEDS: POTASSIUM CHLORIDE 20MEQ TABLET SR PO SCH (09:28)
[2017-11-28] MEDS: APIXABAN 5 MG TABLET PO SCH ×2 (09:29→17:22)
[2017-11-28] MEDS: FERROUS SULFATE 325MG TABLET PO SCH ×3 (09:29→17:22)
[2017-11-28] MEDS: CLOPIDOGREL 75MG TABLET PO SCH (09:30)
[2017-11-28] MEDS: FUROSEMIDE 80MG TABLET PO SCH (09:30)
[2017-11-28] MEDS: FLUTICASONE PROPIONATE 50MCG/SPRAY BOTTLE BOTHNSTRLS SCH (09:32)
[2017-11-28] MEDS: LEVOFLOXACIN 500MG TABLET PO SCH (12:06)
[2017-11-28 13:16] VITALS: BP 103/68
== END 2017-11-28 17:45 | disposition home or self-care (01) | DRG 291 ==
PROVIDERS: ADMIT Psychiatry & Neurology Neurology; ATTEND Internal Medicine Critical Care Medicine
DX: I11.0 Hypertensive heart disease with heart failure (principal); J96.21 Acute and chronic respiratory failure with hypoxia; A41.9 Sepsis, unspecified organism; J18.1 Lobar pneumonia, unspecified organism; B49 Unspecified mycosis; G62.9 Polyneuropathy, unspecified; I27.20 Pulmonary hypertension, unspecified; I48.91 Unspecified atrial fibrillation; L03.115 Cellulitis of right lower limb; L03.116 Cellulitis of left lower limb; N39.0 Urinary tract infection, site not specified; J44.0 Chronic obstructive pulmonary disease with (acute) lower respiratory infection; Z99.81 Dependence on supplemental oxygen; E11.9 Type 2 diabetes mellitus without complications; I42.9 Cardiomyopathy, unspecified; D50.9 Iron deficiency anemia, unspecified; I50.33 Acute on chronic diastolic (congestive) heart failure; E66.9 Obesity, unspecified; M40.209 Unspecified kyphosis, site unspecified; K21.9 Gastro-esophageal reflux disease without esophagitis; I25.10 Atherosclerotic heart disease of native coronary artery without angina pectoris; K64.9 Unspecified hemorrhoids; G47.33 Obstructive sleep apnea (adult) (pediatric); E78.5 Hyperlipidemia, unspecified; M54.40 Lumbago with sciatica, unspecified side; K59.00 Constipation, unspecified; M79.7 Fibromyalgia; Z79.02 Long term (current) use of antithrombotics/antiplatelets; Z79.82 Long term (current) use of aspirin; Z86.711 Personal history of pulmonary embolism; Z90.49 Acquired absence of other specified parts of digestive tract; Z90.710 Acquired absence of both cervix and uterus; Z95.5 Presence of coronary angioplasty implant and graft; Z79.01 Long term (current) use of anticoagulants; Z79.4 Long term (current) use of insulin; Z79.899 Other long term (current) drug therapy; Z87.440 Personal history of urinary (tract) infections; Z98.49 Cataract extraction status, unspecified eye; Z88.8 Allergy status to other drugs, medicaments and biological substances; Z68.36 Body mass index [BMI] 36.0-36.9, adult
CPT/HCPCS: 36415; 71045; 74230; 80048; 80162; 81001; 82270; 82962; 85025; 87086; 87106; 92610; 92611; 94640; 94664; 97110; 97112; 97116; 97150; 97163; 97166; 97530; 97535; J0696; J1815; J7060; J7620; Q0162

== ENCOUNTER 2019-03-04 18:30 | Inpatient (IN) | payer BC, MEDICARE ==
[~2019-03-04] VITALS: Ht 162.6 cm; Wt 96.2 kg
[~2019-03-04 18:30] MED LIST changes: -DILT120T13 PO; +DILT180C66 PO; -DILT180C69 PO; -FURO40TA5 PO; +FURO80TA3 PO; +POTA20TA82 PO
[2019-03-04 19:00] VITALS: BP 150/76
[2019-03-04 20:00] VITALS: BP 150/76
[2019-03-04] MEDS ORDERED: DIPHENHYDRAMINE 50MG/ML VIAL IV PRN (21:00)
[2019-03-04] MEDS ORDERED: THROAT LOZENGES-BENZOCAINE/MENTH/CETYLPYRD CL LOZENGES MM PRN (21:00)
[2019-03-04] MEDS ORDERED: ONDANSETRON HCL 4MG/2ML INJ IV PRN (21:00)
[2019-03-04] MEDS ORDERED: ACETAMINOPHEN 325MG TABLET PO PRN (21:00)
[2019-03-04] MEDS ORDERED: IPRATROPIUM/ALBUTEROL 0.5-3(2.5)MG/3ML NEB INH PRN (21:00)
[2019-03-04] MEDS ORDERED: DEXTROSE 50% WATER 50ML SYRINGE IV PRN (21:00)
[2019-03-04] MEDS ORDERED: CLONIDINE 0.1MG TABLET PO PRN (21:00)
[2019-03-04] MEDS: BLOOD SUGAR DIAGNOSTIC STRIP TEST SCH (21:50)
[2019-03-04] MEDS: GUAIFENESIN/CODEINE 100-10MG/5ML UDC PO PRN (22:12)
[2019-03-04] MEDS: INSULIN LISPRO 100 UNITS/ML SUBCUT SCH (22:13)
[2019-03-04] MEDS: INSULIN GLARGINE UD 100 UNITS/ML SYR SUBCUT SCH (22:15)
[2019-03-05] MEDS: IPRATROPIUM/ALBUTEROL 0.5-3(2.5)MG/3ML NEB HHN SCH ×5 (00:09→20:50)
[2019-03-05] MEDS: BUDESONIDE 0.5MG/2ML NEB HHN SCH ×3 (00:09→20:51)
[2019-03-05] MEDS: BLOOD SUGAR DIAGNOSTIC STRIP TEST SCH ×4 (06:00→21:30)
[2019-03-05] MEDS: PANTOPRAZOLE 40MG DR TABLET PO SCH ×2 (06:14→16:41)
[2019-03-05 06:59] LABS: BASOPHILS % 0.7 % (0.0-2.0); EOSINOPHILS % 3.4 % (0.0-5.0); HEMATOCRIT. 24.1 % (36.0-48.0); HEMOGLOBIN. 7.8 g/dL (12.0-16.0); LYMPHOCYTES % 16.6 % (20.0-50.0); MEAN CORPUSCULAR HEMOGLOBIN 29.1 pg (28.0-32.0); MEAN PLATELET VOLUME 7.9 fl (7.4-10.4); NEUTROPHILS % 71.3 % (40.0-76.0); PLATELET 339 x1000/uL (130-400); RED BLOOD CELL COUNT 2.68 mill/uL (4.2-5.4); RED CELL DISTRIBUTION WIDTH 18.2 % (11.6-14.6)
[2019-03-05] MEDS ORDERED: PANTOPRAZOLE 40MG DR TABLET PO SCH (07:00)
[2019-03-05] MEDS: INSULIN LISPRO 100 UNITS/ML SUBCUT SCH ×4 (07:00→21:00)
[2019-03-05 07:15] LABS: CHLORIDE 112 mEq/L (98-107)
[2019-03-05 08:00] VITALS: BP 132/51
[2019-03-05] MEDS ORDERED: FUROSEMIDE 20MG/2ML VIAL IVP SCH (09:00)
[2019-03-05] MEDS: PHENYLEPHRINE HCL 0.5% 15ML NASAL SPRAY BOTHNSTRLS SCH ×3 (09:16→16:41)
[2019-03-05] MEDS: FERROUS SULFATE 300MG/5ML UDC PO SCH ×2 (09:17→16:41)
[2019-03-05] MEDS: GLYBURIDE 5MG TABLET PO SCH (09:17)
[2019-03-05] MEDS: DOCUSATE SODIUM 100MG CAPSULE PO SCH (16:41)
[2019-03-05 20:00] VITALS: BP 133/37
[2019-03-05] MEDS: INSULIN GLARGINE UD 100 UNITS/ML SYR SUBCUT SCH (21:31)
[2019-03-05] MEDS ORDERED: ACETYLCYSTEINE 100MG/ML 10% VIAL 4ML INH SCH (22:00)
[2019-03-06] MEDS: IPRATROPIUM/ALBUTEROL 0.5-3(2.5)MG/3ML NEB HHN SCH ×5 (00:13→15:26)
[2019-03-06] MEDS: BLOOD SUGAR DIAGNOSTIC STRIP TEST SCH ×4 (05:58→20:13)
[2019-03-06] MEDS: PANTOPRAZOLE 40MG DR TABLET PO SCH ×2 (06:03→16:06)
[2019-03-06 06:43] LABS: BASOPHILS % 0.7 % (0.0-2.0); EOSINOPHILS % 2.9 % (0.0-5.0); LYMPHOCYTES % 13.6 % (20.0-50.0); MEAN CORPUSCULAR HEMOGLOBIN 28.7 pg (28.0-32.0); MEAN CORPUSCULAR VOLUME 89.8 fL (81.0-99.0); MEAN PLATELET VOLUME 7.8 fl (7.4-10.4); MONOCYTES % 7.5 % (2.0-8.0); NEUTROPHILS % 75.3 % (40.0-76.0); PLATELET 342 x1000/uL (130-400); RED BLOOD CELL COUNT 2.79 mill/uL (4.2-5.4); RED CELL DISTRIBUTION WIDTH 17.7 % (11.6-14.6)
[2019-03-06 07:03] LABS: CHLORIDE 116 mEq/L (98-107)
[2019-03-06 07:12] LABS: PHOSPHORUS 3.5 mg/dL (2.5-4.9)
[2019-03-06] MEDS: BUDESONIDE 0.5MG/2ML NEB HHN SCH (07:44)
[2019-03-06 08:00] VITALS: BP 117/37
[2019-03-06] MEDS: INSULIN LISPRO 100 UNITS/ML SUBCUT SCH ×4 (08:27→20:47)
[2019-03-06] MEDS: AMLODIPINE 5MG TABLET PO SCH (09:00)
[2019-03-06] MEDS: PHENYLEPHRINE HCL 0.5% 15ML NASAL SPRAY BOTHNSTRLS SCH ×3 (09:00→16:06)
[2019-03-06] MEDS: DOCUSATE SODIUM 100MG CAPSULE PO SCH ×2 (09:00→16:06)
[2019-03-06] MEDS: GLYBURIDE 5MG TABLET PO SCH (09:06)
[2019-03-06] MEDS: FERROUS SULFATE 300MG/5ML UDC PO SCH ×2 (09:08→16:06)
[2019-03-06] MEDS: FUROSEMIDE 20MG/2ML VIAL IVP SCH (09:08)
[2019-03-06] MEDS ORDERED: POTASSIUM CHLORIDE 20MEQ TABLET SR PO NR (15:00)
[2019-03-06 20:00] VITALS: BP 133/40
[2019-03-06] MEDS: GUAIFENESIN 600MG ER TABLET PO SCH (20:12)
[2019-03-06] MEDS: GUAIFENESIN/CODEINE 100-10MG/5ML UDC PO PRN (20:47)
[2019-03-06] MEDS: INSULIN GLARGINE UD 100 UNITS/ML SYR SUBCUT SCH (21:03)
[2019-03-07] MEDS: IPRATROPIUM/ALBUTEROL 0.5-3(2.5)MG/3ML NEB HHN SCH ×5 (00:42→22:34)
[2019-03-07] MEDS: BUDESONIDE 0.5MG/2ML NEB HHN SCH ×3 (00:42→22:34)
[2019-03-07] MEDS: PANTOPRAZOLE 40MG DR TABLET PO SCH ×2 (06:03→16:15)
[2019-03-07] MEDS: BLOOD SUGAR DIAGNOSTIC STRIP TEST SCH ×4 (06:08→20:34)
[2019-03-07] MEDS: INSULIN LISPRO 100 UNITS/ML SUBCUT SCH ×4 (06:08→20:45)
[2019-03-07 07:22] LABS: BASOPHILS % 1.1 % (0.0-2.0); EOSINOPHILS % 2.9 % (0.0-5.0); HEMATOCRIT. 25.6 % (36.0-48.0); HEMOGLOBIN. 8.3 g/dL (12.0-16.0); LYMPHOCYTES % 18.7 % (20.0-50.0); MEAN CORPUSCULAR HEMOGLOBIN 29.2 pg (28.0-32.0); MEAN CORPUSCULAR VOLUME 89.8 fL (81.0-99.0); MEAN PLATELET VOLUME 7.8 fl (7.4-10.4); MONOCYTES % 7.5 % (2.0-8.0); NEUTROPHILS % 69.8 % (40.0-76.0); PLATELET 335 x1000/uL (130-400); RED BLOOD CELL COUNT 2.85 mill/uL (4.2-5.4); RED CELL DISTRIBUTION WIDTH 18.2 % (11.6-14.6)
[2019-03-07 07:41] LABS: CHLORIDE 110 mEq/L (98-107)
[2019-03-07 07:58] VITALS: BP 126/48
[2019-03-07] MEDS: FUROSEMIDE 20MG/2ML VIAL IVP SCH (08:25)
[2019-03-07] MEDS: GLYBURIDE 5MG TABLET PO SCH (08:25)
[2019-03-07] MEDS: AMLODIPINE 5MG TABLET PO SCH (08:25)
[2019-03-07] MEDS: FERROUS SULFATE 300MG/5ML UDC PO SCH ×2 (08:25→16:15)
[2019-03-07] MEDS: GUAIFENESIN 600MG ER TABLET PO SCH ×2 (08:26→20:45)
[2019-03-07] MEDS: PHENYLEPHRINE HCL 0.5% 15ML NASAL SPRAY BOTHNSTRLS SCH ×3 (08:38→16:21)
[2019-03-07] MEDS: DOCUSATE SODIUM 100MG CAPSULE PO SCH ×2 (09:00→16:16)
[2019-03-07 20:00] VITALS: BP 119/46
[2019-03-07] MEDS: GUAIFENESIN/CODEINE 100-10MG/5ML UDC PO PRN (20:34)
[2019-03-07] MEDS: INSULIN GLARGINE UD 100 UNITS/ML SYR SUBCUT SCH (21:32)
[2019-03-08] MEDS: GUAIFENESIN/CODEINE 100-10MG/5ML UDC PO PRN ×2 (02:36→20:39)
[2019-03-08] MEDS: IPRATROPIUM/ALBUTEROL 0.5-3(2.5)MG/3ML NEB HHN SCH ×5 (04:30→20:45)
[2019-03-08] MEDS: INSULIN LISPRO 100 UNITS/ML SUBCUT SCH ×4 (06:18→21:08)
[2019-03-08] MEDS: PANTOPRAZOLE 40MG DR TABLET PO SCH ×2 (06:18→16:47)
[2019-03-08] MEDS: BLOOD SUGAR DIAGNOSTIC STRIP TEST SCH ×4 (06:18→20:39)
[2019-03-08 08:00] VITALS: BP 129/48
[2019-03-08] MEDS: DOCUSATE SODIUM 100MG CAPSULE PO SCH ×2 (09:00→16:48)
[2019-03-08] MEDS: GUAIFENESIN 600MG ER TABLET PO SCH ×2 (09:00→20:39)
[2019-03-08] MEDS: FUROSEMIDE 20MG/2ML VIAL IVP SCH (10:04)
[2019-03-08] MEDS: PHENYLEPHRINE HCL 0.5% 15ML NASAL SPRAY BOTHNSTRLS SCH ×3 (10:04→16:47)
[2019-03-08] MEDS: AMLODIPINE 5MG TABLET PO SCH (10:05)
[2019-03-08] MEDS: GLYBURIDE 5MG TABLET PO SCH (10:08)
[2019-03-08] MEDS: FERROUS SULFATE 300MG/5ML UDC PO SCH ×2 (10:08→16:48)
[2019-03-08 20:00] VITALS: BP 118/50
[2019-03-08] MEDS: INSULIN GLARGINE UD 100 UNITS/ML SYR SUBCUT SCH (21:08)
[2019-03-09] MEDS: IPRATROPIUM/ALBUTEROL 0.5-3(2.5)MG/3ML NEB HHN SCH ×6 (00:25→21:32)
[2019-03-09] MEDS: GUAIFENESIN/CODEINE 100-10MG/5ML UDC PO PRN ×2 (04:11→22:03)
[2019-03-09] MEDS: BLOOD SUGAR DIAGNOSTIC STRIP TEST SCH ×4 (05:48→21:07)
[2019-03-09] MEDS: PANTOPRAZOLE 40MG DR TABLET PO SCH ×2 (06:00→16:39)
[2019-03-09] MEDS: INSULIN LISPRO 100 UNITS/ML SUBCUT SCH ×4 (06:12→21:00)
[2019-03-09 07:33] VITALS: BP 111/40
[2019-03-09] MEDS: DOCUSATE SODIUM 100MG CAPSULE PO SCH ×2 (08:32→16:39)
[2019-03-09] MEDS: GUAIFENESIN 600MG ER TABLET PO SCH ×2 (08:33→20:53)
[2019-03-09] MEDS: GLYBURIDE 5MG TABLET PO SCH (08:34)
[2019-03-09] MEDS: AMLODIPINE 5MG TABLET PO SCH (08:35)
[2019-03-09] MEDS: FERROUS SULFATE 325MG TABLET PO SCH ×2 (08:35→16:39)
[2019-03-09] MEDS: PHENYLEPHRINE HCL 0.5% 15ML NASAL SPRAY BOTHNSTRLS SCH ×3 (08:35→16:40)
[2019-03-09] MEDS: FUROSEMIDE 20MG/2ML VIAL IVP SCH (08:35)
[2019-03-09 20:00] VITALS: BP 118/40
[2019-03-09] MEDS: INSULIN GLARGINE UD 100 UNITS/ML SYR SUBCUT SCH (21:08)
[2019-03-10] MEDS: IPRATROPIUM/ALBUTEROL 0.5-3(2.5)MG/3ML NEB HHN SCH ×6 (00:38→20:55)
[2019-03-10] MEDS: PANTOPRAZOLE 40MG DR TABLET PO SCH ×2 (06:24→16:59)
[2019-03-10] MEDS: BLOOD SUGAR DIAGNOSTIC STRIP TEST SCH ×4 (06:27→21:44)
[2019-03-10] MEDS: INSULIN LISPRO 100 UNITS/ML SUBCUT SCH ×4 (06:27→21:44)
[2019-03-10 08:00] VITALS: BP 119/41
[2019-03-10] MEDS: PHENYLEPHRINE HCL 0.5% 15ML NASAL SPRAY BOTHNSTRLS SCH ×3 (08:54→17:00)
[2019-03-10] MEDS: GLYBURIDE 5MG TABLET PO SCH (08:55)
[2019-03-10] MEDS: DOCUSATE SODIUM 100MG CAPSULE PO SCH (08:56)
[2019-03-10] MEDS: FUROSEMIDE 20MG/2ML VIAL IVP SCH (08:56)
[2019-03-10] MEDS: FERROUS SULFATE 325MG TABLET PO SCH ×2 (08:56→16:59)
[2019-03-10] MEDS: AMLODIPINE 5MG TABLET PO SCH (08:56)
[2019-03-10] MEDS: GUAIFENESIN 600MG ER TABLET PO SCH (08:57)
[2019-03-10] MEDS ORDERED: FUROSEMIDE 20MG/2ML VIAL IVP NR (15:30)
[2019-03-10 20:00] VITALS: BP 118/55
[2019-03-10] MEDS: INSULIN GLARGINE UD 100 UNITS/ML SYR SUBCUT SCH (21:48)
[2019-03-10] MEDS: GUAIFENESIN/CODEINE 100-10MG/5ML UDC PO PRN (21:49)
[2019-03-11] MEDS: IPRATROPIUM/ALBUTEROL 0.5-3(2.5)MG/3ML NEB HHN SCH ×6 (00:25→20:21)
[2019-03-11 06:30] LABS: BASOPHILS % 0.8 % (0.0-2.0); EOSINOPHILS % 2.7 % (0.0-5.0); HEMATOCRIT. 24.5 % (36.0-48.0); HEMOGLOBIN. 7.9 g/dL (12.0-16.0); LYMPHOCYTES % 16.1 % (20.0-50.0); MEAN CORPUSCULAR VOLUME 89.6 fL (81.0-99.0); MEAN PLATELET VOLUME 7.9 fl (7.4-10.4); NEUTROPHILS % 72.4 % (40.0-76.0); PLATELET 288 x1000/uL (130-400); RED BLOOD CELL COUNT 2.73 mill/uL (4.2-5.4); RED CELL DISTRIBUTION WIDTH 18.5 % (11.6-14.6)
[2019-03-11] MEDS: BLOOD SUGAR DIAGNOSTIC STRIP TEST SCH ×4 (06:49→21:30)
[2019-03-11 06:58] LABS: CHLORIDE 108 mEq/L (98-107)
[2019-03-11] MEDS: PANTOPRAZOLE 40MG DR TABLET PO SCH ×3 (07:45→17:13)
[2019-03-11 08:08] VITALS: BP 133/43
[2019-03-11] MEDS: INSULIN LISPRO 100 UNITS/ML SUBCUT SCH ×4 (09:00→21:00)
[2019-03-11] MEDS: PHENYLEPHRINE HCL 0.5% 15ML NASAL SPRAY BOTHNSTRLS SCH ×3 (09:31→17:14)
[2019-03-11] MEDS: FERROUS SULFATE 325MG TABLET PO SCH ×2 (09:31→17:06)
[2019-03-11] MEDS: FUROSEMIDE 20MG/2ML VIAL IVP SCH (09:31)
[2019-03-11] MEDS: AMLODIPINE 5MG TABLET PO SCH (09:31)
[2019-03-11] MEDS: GLYBURIDE 5MG TABLET PO SCH (09:31)
[2019-03-11] MEDS ORDERED: FUROSEMIDE 40MG/4ML VIAL IVP NR (16:45)
[2019-03-11] MEDS: ENOXAPARIN 100MG/ML SYR SUBCUT SCH (17:14)
[2019-03-11 20:00] VITALS: BP 125/42
[2019-03-11] MEDS: GUAIFENESIN/CODEINE 100-10MG/5ML UDC PO PRN (21:29)
[2019-03-11] MEDS: INSULIN GLARGINE UD 100 UNITS/ML SYR SUBCUT SCH (21:31)
[2019-03-12] MEDS: IPRATROPIUM/ALBUTEROL 0.5-3(2.5)MG/3ML NEB HHN SCH ×6 (00:40→21:49)
[2019-03-12] MEDS: GUAIFENESIN/CODEINE 100-10MG/5ML UDC PO PRN (03:59)
[2019-03-12] MEDS: ENOXAPARIN 100MG/ML SYR SUBCUT SCH ×2 (05:41→17:29)
[2019-03-12] MEDS: BLOOD SUGAR DIAGNOSTIC STRIP TEST SCH ×4 (05:46→21:00)
[2019-03-12] MEDS: INSULIN LISPRO 100 UNITS/ML SUBCUT SCH ×4 (05:52→21:00)
[2019-03-12 08:00] VITALS: BP 125/48
[2019-03-12] MEDS ORDERED: POTASSIUM CHLORIDE 20MEQ TABLET SR PO SCH (09:00)
[2019-03-12] MEDS: PHENYLEPHRINE HCL 0.5% 15ML NASAL SPRAY BOTHNSTRLS SCH ×3 (09:00→17:28)
[2019-03-12] MEDS: FUROSEMIDE 40MG TABLET PO SCH (09:46)
[2019-03-12] MEDS: GLYBURIDE 5MG TABLET PO SCH (09:46)
[2019-03-12] MEDS: AMLODIPINE 5MG TABLET PO SCH (09:47)
[2019-03-12] MEDS: FERROUS SULFATE 325MG TABLET PO SCH ×2 (09:47→17:28)
[2019-03-12] MEDS: POTASSIUM CHLORIDE 20MEQ/PACKET PO SCH (09:47)
[2019-03-12 15:53] LABS: CHLORIDE 105 mEq/L (98-107)
[2019-03-12 15:54] LABS: HEMOGLOBIN 9.4 g/dL (12.0-16.0)
[2019-03-12 16:19] LABS: PROTHROMBIN TIME 10.7 sec (9.6-11.0)
[2019-03-12] MEDS: PANTOPRAZOLE 40MG DR TABLET PO SCH (17:28)
[2019-03-12 20:00] VITALS: BP 133/61
[2019-03-12] MEDS: INSULIN GLARGINE UD 100 UNITS/ML SYR SUBCUT SCH (22:00)
[2019-03-13] MEDS: IPRATROPIUM/ALBUTEROL 0.5-3(2.5)MG/3ML NEB HHN SCH ×5 (00:44→20:01)
[2019-03-13] MEDS: GUAIFENESIN/CODEINE 100-10MG/5ML UDC PO PRN ×2 (04:17→21:54)
[2019-03-13] MEDS: PANTOPRAZOLE 40MG DR TABLET PO SCH ×2 (06:21→17:02)
[2019-03-13] MEDS: ENOXAPARIN 100MG/ML SYR SUBCUT SCH ×2 (06:21→17:02)
[2019-03-13] MEDS: BLOOD SUGAR DIAGNOSTIC STRIP TEST SCH ×4 (06:26→21:54)
[2019-03-13 06:34] LABS: HEMATOCRIT 27.6 % (36.0-48.0); HEMOGLOBIN 8.6 g/dL (12.0-16.0)
[2019-03-13 08:10] VITALS: BP 123/43
[2019-03-13] MEDS: INSULIN LISPRO 100 UNITS/ML SUBCUT SCH ×4 (09:00→21:00)
[2019-03-13] MEDS: POTASSIUM CHLORIDE 20MEQ/PACKET PO SCH (09:16)
[2019-03-13] MEDS: GLYBURIDE 5MG TABLET PO SCH (09:16)
[2019-03-13] MEDS: FUROSEMIDE 40MG TABLET PO SCH (09:16)
[2019-03-13] MEDS: PHENYLEPHRINE HCL 0.5% 15ML NASAL SPRAY BOTHNSTRLS SCH ×3 (09:17→16:54)
[2019-03-13] MEDS: AMLODIPINE 5MG TABLET PO SCH (09:17)
[2019-03-13] MEDS: FERROUS SULFATE 325MG TABLET PO SCH ×2 (09:17→16:54)
[2019-03-13] MEDS ORDERED: POTASSIUM CHLORIDE 20MEQ/PACKET PO SCH (13:15)
[2019-03-13] MEDS: DOCUSATE SODIUM 100MG CAPSULE PO PRN (17:02)
[2019-03-13 20:00] VITALS: BP 112/56
[2019-03-14] MEDS: IPRATROPIUM/ALBUTEROL 0.5-3(2.5)MG/3ML NEB HHN SCH ×7 (00:06→23:58)
[2019-03-14] MEDS: ENOXAPARIN 100MG/ML SYR SUBCUT SCH ×2 (05:58→17:08)
[2019-03-14] MEDS: BLOOD SUGAR DIAGNOSTIC STRIP TEST SCH ×4 (05:59→21:10)
[2019-03-14] MEDS: PANTOPRAZOLE 40MG DR TABLET PO SCH ×2 (05:59→16:28)
[2019-03-14 08:28] VITALS: BP 113/45
[2019-03-14] MEDS: INSULIN LISPRO 100 UNITS/ML SUBCUT SCH ×4 (09:00→21:00)
[2019-03-14] MEDS: POTASSIUM CHLORIDE 20MEQ/PACKET PO SCH (09:28)
[2019-03-14] MEDS: GLYBURIDE 5MG TABLET PO SCH (09:28)
[2019-03-14] MEDS: PHENYLEPHRINE HCL 0.5% 15ML NASAL SPRAY BOTHNSTRLS SCH ×3 (09:29→16:28)
[2019-03-14] MEDS: FERROUS SULFATE 325MG TABLET PO SCH ×2 (09:29→17:08)
[2019-03-14] MEDS: FUROSEMIDE 40MG TABLET PO SCH (09:29)
[2019-03-14] MEDS: AMLODIPINE 5MG TABLET PO SCH (09:29)
[2019-03-14 09:59] LABS: HEMATOCRIT 29.2 % (36.0-48.0); HEMOGLOBIN 9.3 g/dL (12.0-16.0)
[2019-03-14 20:00] VITALS: BP 126/44
[2019-03-14] MEDS: GUAIFENESIN/CODEINE 100-10MG/5ML UDC PO PRN (21:11)
[2019-03-15] MEDS: GUAIFENESIN/CODEINE 100-10MG/5ML UDC PO PRN ×2 (03:14→21:28)
[2019-03-15] MEDS: IPRATROPIUM/ALBUTEROL 0.5-3(2.5)MG/3ML NEB HHN SCH ×5 (04:17→20:06)
[2019-03-15] MEDS: BLOOD SUGAR DIAGNOSTIC STRIP TEST SCH ×4 (06:06→21:33)
[2019-03-15] MEDS: PANTOPRAZOLE 40MG DR TABLET PO SCH ×2 (06:06→17:09)
[2019-03-15] MEDS: ENOXAPARIN 100MG/ML SYR SUBCUT SCH ×2 (06:06→17:10)
[2019-03-15] MEDS: INSULIN LISPRO 100 UNITS/ML SUBCUT SCH ×4 (06:10→21:35)
[2019-03-15 08:00] VITALS: BP 136/45
[2019-03-15 08:54] LABS: HEMATOCRIT 27.5 % (36.0-48.0); HEMOGLOBIN 8.7 g/dL (12.0-16.0)
[2019-03-15] MEDS: PHENYLEPHRINE HCL 0.5% 15ML NASAL SPRAY BOTHNSTRLS SCH ×3 (09:03→17:10)
[2019-03-15] MEDS: GLYBURIDE 5MG TABLET PO SCH (09:04)
[2019-03-15] MEDS: FERROUS SULFATE 325MG TABLET PO SCH ×2 (09:04→17:09)
[2019-03-15] MEDS: FUROSEMIDE 40MG TABLET PO SCH (09:05)
[2019-03-15] MEDS: AMLODIPINE 5MG TABLET PO SCH (09:05)
[2019-03-15] MEDS: POTASSIUM CHLORIDE 20MEQ/PACKET PO SCH (09:07)
[2019-03-15] MEDS ORDERED: FUROSEMIDE 40MG/4ML VIAL IVP SCH (16:30)
[2019-03-15 20:00] VITALS: BP 118/59
[2019-03-15] MEDS: DOCUSATE SODIUM 100MG CAPSULE PO PRN (21:28)
[2019-03-16] MEDS: IPRATROPIUM/ALBUTEROL 0.5-3(2.5)MG/3ML NEB HHN SCH ×6 (00:30→21:15)
[2019-03-16] MEDS: GUAIFENESIN/CODEINE 100-10MG/5ML UDC PO PRN ×2 (04:13→22:22)
[2019-03-16] MEDS: PANTOPRAZOLE 40MG DR TABLET PO SCH ×2 (06:10→17:13)
[2019-03-16] MEDS: BLOOD SUGAR DIAGNOSTIC STRIP TEST SCH ×4 (06:10→20:58)
[2019-03-16] MEDS: ENOXAPARIN 100MG/ML SYR SUBCUT SCH ×2 (06:10→17:14)
[2019-03-16] MEDS: INSULIN LISPRO 100 UNITS/ML SUBCUT SCH ×4 (06:17→20:58)
[2019-03-16 06:59] LABS: HEMATOCRIT 27.8 % (36.0-48.0); HEMOGLOBIN 8.9 g/dL (12.0-16.0)
[2019-03-16] MEDS: FERROUS SULFATE 325MG TABLET PO SCH ×2 (08:32→17:13)
[2019-03-16] MEDS: FUROSEMIDE 40MG TABLET PO SCH (08:32)
[2019-03-16] MEDS: GLYBURIDE 5MG TABLET PO SCH (08:32)
[2019-03-16] MEDS: POTASSIUM CHLORIDE 20MEQ/PACKET PO SCH (08:32)
[2019-03-16] MEDS: PHENYLEPHRINE HCL 0.5% 15ML NASAL SPRAY BOTHNSTRLS SCH ×3 (08:34→17:13)
[2019-03-16 08:35] VITALS: BP 108/40
[2019-03-16] MEDS: AMLODIPINE 5MG TABLET PO SCH (08:37)
[2019-03-16] MEDS: DOCUSATE SODIUM 100MG CAPSULE PO PRN (13:12)
[2019-03-16 20:00] VITALS: BP 122/49
[2019-03-17] MEDS: IPRATROPIUM/ALBUTEROL 0.5-3(2.5)MG/3ML NEB HHN SCH ×6 (00:54→23:27)
[2019-03-17] MEDS: PANTOPRAZOLE 40MG DR TABLET PO SCH ×2 (06:02→17:15)
[2019-03-17] MEDS: ENOXAPARIN 100MG/ML SYR SUBCUT SCH ×2 (06:02→17:15)
[2019-03-17] MEDS: BLOOD SUGAR DIAGNOSTIC STRIP TEST SCH ×4 (06:06→21:27)
[2019-03-17] MEDS: INSULIN LISPRO 100 UNITS/ML SUBCUT SCH ×4 (06:39→21:00)
[2019-03-17 08:00] VITALS: BP 105/42
[2019-03-17] MEDS: AMLODIPINE 5MG TABLET PO SCH (09:00)
[2019-03-17] MEDS: FUROSEMIDE 40MG TABLET PO SCH (10:05)
[2019-03-17] MEDS: FERROUS SULFATE 325MG TABLET PO SCH ×2 (10:05→17:15)
[2019-03-17] MEDS: POTASSIUM CHLORIDE 20MEQ/PACKET PO SCH (10:06)
[2019-03-17] MEDS: PHENYLEPHRINE HCL 0.5% 15ML NASAL SPRAY BOTHNSTRLS SCH ×3 (10:06→17:16)
[2019-03-17] MEDS: GLYBURIDE 5MG TABLET PO SCH (10:06)
[2019-03-17] MEDS: DOCUSATE SODIUM 100MG CAPSULE PO PRN (17:16)
[2019-03-17 20:00] VITALS: BP 113/57
[2019-03-17] MEDS: GUAIFENESIN/CODEINE 100-10MG/5ML UDC PO PRN (23:32)
[2019-03-18] MEDS: IPRATROPIUM/ALBUTEROL 0.5-3(2.5)MG/3ML NEB HHN SCH ×4 (03:14→21:24)
[2019-03-18] MEDS: ENOXAPARIN 100MG/ML SYR SUBCUT SCH ×2 (06:19→17:03)
[2019-03-18] MEDS: PANTOPRAZOLE 40MG DR TABLET PO SCH ×2 (06:19→17:02)
[2019-03-18] MEDS: BLOOD SUGAR DIAGNOSTIC STRIP TEST SCH ×4 (06:23→20:21)
[2019-03-18] MEDS: INSULIN LISPRO 100 UNITS/ML SUBCUT SCH ×4 (06:51→20:27)
[2019-03-18 08:00] VITALS: BP 108/39
[2019-03-18] MEDS: AMLODIPINE 5MG TABLET PO SCH (09:00)
[2019-03-18] MEDS: FERROUS SULFATE 325MG TABLET PO SCH ×2 (09:24→17:02)
[2019-03-18] MEDS: POTASSIUM CHLORIDE 20MEQ/PACKET PO SCH (09:24)
[2019-03-18] MEDS: GLYBURIDE 5MG TABLET PO SCH (09:24)
[2019-03-18] MEDS: FUROSEMIDE 40MG TABLET PO SCH (09:24)
[2019-03-18] MEDS: PHENYLEPHRINE HCL 0.5% 15ML NASAL SPRAY BOTHNSTRLS SCH ×3 (09:25→17:00)
[2019-03-18 20:00] VITALS: BP 120/39
[2019-03-18 23:00] VITALS: BP 131/45
[2019-03-19] MEDS: IPRATROPIUM/ALBUTEROL 0.5-3(2.5)MG/3ML NEB HHN SCH ×5 (00:58→22:11)
[2019-03-19] MEDS: PANTOPRAZOLE 40MG DR TABLET PO SCH ×2 (06:06→16:47)
[2019-03-19] MEDS: ENOXAPARIN 100MG/ML SYR SUBCUT SCH ×2 (06:07→17:14)
[2019-03-19] MEDS: BLOOD SUGAR DIAGNOSTIC STRIP TEST SCH ×4 (06:11→21:43)
[2019-03-19 06:33] LABS: HEMATOCRIT 27.8 % (36.0-48.0); HEMOGLOBIN 9.1 g/dL (12.0-16.0)
[2019-03-19 08:00] VITALS: BP 129/43
[2019-03-19] MEDS: PHENYLEPHRINE HCL 0.5% 15ML NASAL SPRAY BOTHNSTRLS SCH ×3 (08:44→16:47)
[2019-03-19] MEDS: GLYBURIDE 5MG TABLET PO SCH (08:45)
[2019-03-19] MEDS: FERROUS SULFATE 325MG TABLET PO SCH ×2 (08:45→16:47)
[2019-03-19] MEDS: FUROSEMIDE 40MG TABLET PO SCH (08:45)
[2019-03-19] MEDS: POTASSIUM CHLORIDE 20MEQ/PACKET PO SCH (08:45)
[2019-03-19] MEDS: INSULIN LISPRO 100 UNITS/ML SUBCUT SCH ×4 (08:45→21:00)
[2019-03-19] MEDS: AMLODIPINE 5MG TABLET PO SCH (08:45)
[2019-03-19] MEDS ORDERED: POTASSIUM CHLORIDE 20MEQ/PACKET PO NR (14:00)
[2019-03-19 20:00] VITALS: BP 115/59
[2019-03-19] MEDS: GUAIFENESIN/CODEINE 100-10MG/5ML UDC PO PRN (21:36)
[2019-03-20] MEDS: IPRATROPIUM/ALBUTEROL 0.5-3(2.5)MG/3ML NEB HHN SCH ×6 (00:19→20:21)
[2019-03-20] MEDS: ENOXAPARIN 100MG/ML SYR SUBCUT SCH ×2 (06:16→17:05)
[2019-03-20] MEDS: PANTOPRAZOLE 40MG DR TABLET PO SCH ×2 (06:16→17:05)
[2019-03-20] MEDS: BLOOD SUGAR DIAGNOSTIC STRIP TEST SCH ×4 (06:31→20:44)
[2019-03-20 08:28] VITALS: BP 122/50
[2019-03-20] MEDS: FUROSEMIDE 40MG TABLET PO SCH (08:34)
[2019-03-20] MEDS: POTASSIUM CHLORIDE 20MEQ/PACKET PO SCH (08:34)
[2019-03-20] MEDS: GLYBURIDE 5MG TABLET PO SCH (08:35)
[2019-03-20] MEDS: AMLODIPINE 5MG TABLET PO SCH (08:35)
[2019-03-20] MEDS: INSULIN LISPRO 100 UNITS/ML SUBCUT SCH ×4 (08:35→20:54)
[2019-03-20] MEDS: FERROUS SULFATE 325MG TABLET PO SCH ×2 (08:35→17:05)
[2019-03-20] MEDS: PHENYLEPHRINE HCL 0.5% 15ML NASAL SPRAY BOTHNSTRLS SCH ×3 (08:38→16:24)
[2019-03-20 20:00] VITALS: BP 131/43
[2019-03-21] MEDS: IPRATROPIUM/ALBUTEROL 0.5-3(2.5)MG/3ML NEB HHN SCH ×5 (00:12→17:10)
[2019-03-21] MEDS: GUAIFENESIN/CODEINE 100-10MG/5ML UDC PO PRN ×2 (02:08→17:22)
[2019-03-21] MEDS: BLOOD SUGAR DIAGNOSTIC STRIP TEST SCH ×3 (06:02→17:09)
[2019-03-21] MEDS: PANTOPRAZOLE 40MG DR TABLET PO SCH ×2 (06:02→17:22)
[2019-03-21] MEDS: ENOXAPARIN 100MG/ML SYR SUBCUT SCH ×2 (06:02→17:22)
[2019-03-21] MEDS: INSULIN LISPRO 100 UNITS/ML SUBCUT SCH ×3 (06:02→17:00)
[2019-03-21 08:03] VITALS: BP 134/65
[2019-03-21] MEDS: PHENYLEPHRINE HCL 0.5% 15ML NASAL SPRAY BOTHNSTRLS SCH ×3 (08:37→17:00)
[2019-03-21] MEDS: POTASSIUM CHLORIDE 20MEQ/PACKET PO SCH (08:37)
[2019-03-21] MEDS: FUROSEMIDE 40MG TABLET PO SCH (08:38)
[2019-03-21] MEDS: GLYBURIDE 5MG TABLET PO SCH (08:38)
[2019-03-21] MEDS: FERROUS SULFATE 325MG TABLET PO SCH ×2 (08:39→17:22)
[2019-03-21] MEDS: AMLODIPINE 5MG TABLET PO SCH (08:39)
[2019-03-21 12:34] VITALS: BP 134/65
[2019-03-21 12:44] VITALS: BP 134/65
== END 2019-03-21 18:45 | disposition home health service (06) | DRG 189 ==
PROVIDERS: ADMIT Psychiatry & Neurology Neurology; ATTEND Internal Medicine Critical Care Medicine
DX: J96.21 Acute and chronic respiratory failure with hypoxia (principal); J18.9 Pneumonia, unspecified organism; I42.9 Cardiomyopathy, unspecified; I50.32 Chronic diastolic (congestive) heart failure; J44.0 Chronic obstructive pulmonary disease with (acute) lower respiratory infection; I82.433 Acute embolism and thrombosis of popliteal vein, bilateral; I82.413 Acute embolism and thrombosis of femoral vein, bilateral; D68.59 Other primary thrombophilia; E11.43 Type 2 diabetes mellitus with diabetic autonomic (poly)neuropathy; F39 Unspecified mood [affective] disorder; G89.29 Other chronic pain; I11.0 Hypertensive heart disease with heart failure; I25.10 Atherosclerotic heart disease of native coronary artery without angina pectoris; I48.91 Unspecified atrial fibrillation; K21.9 Gastro-esophageal reflux disease without esophagitis; K31.84 Gastroparesis; M47.9 Spondylosis, unspecified; R53.81 Other malaise; E11.40 Type 2 diabetes mellitus with diabetic neuropathy, unspecified; I95.9 Hypotension, unspecified; Z95.5 Presence of coronary angioplasty implant and graft; Z99.81 Dependence on supplemental oxygen; Z88.8 Allergy status to other drugs, medicaments and biological substances; Z79.899 Other long term (current) drug therapy; Z86.711 Personal history of pulmonary embolism; Z79.01 Long term (current) use of anticoagulants; Z79.4 Long term (current) use of insulin
CPT/HCPCS: 36415; 71045; 74018; 80048; 82962; 83735; 83880; 84100; 85014; 85018; 93970; 94618; 94640; 97110; 97112; 97116; 97162; 97167; 97530; 97535; J1650; J1815; J1940; J7608; J7620; J7626; A5200

== ENCOUNTER 2021-03-23 21:03 | Inpatient (IN) | payer BC, MEDICARE ==
[~2021-03-23] VITALS: Ht 167.6 cm; Wt 93.4 kg
[~2021-03-23 21:03] MED LIST changes: -ISOS30TA6 PO; +ISOS30TA91 PO; +NIAC-34 PO; -NIAC500T5 PO; +OMEP40CA12 PO; -OMEP40CA34 PO
[2021-03-23 21:05] VITALS: BP 118/80
[2021-03-23 21:15] VITALS: BP 118/80
[2021-03-23] MEDS ORDERED: METOPROLOL TARTRATE 25MG TABLET PO PRN (22:30)
[2021-03-23] MEDS ORDERED: POLYETHYLENE GLYCOL 3350 (17GM) 1 DOSE PACK PO PRN (22:30)
[2021-03-23] MEDS ORDERED: CALCIUM CARBONATE 500MG TABLET CHEW PO PRN (22:30)
[2021-03-23] MEDS ORDERED: LOPERAMIDE HCL 2MG CAPSULE PO PRN (22:30)
[2021-03-23] MEDS ORDERED: DEXTROSE 50% WATER 50ML SYRINGE IV PRN (22:30)
[2021-03-23] MEDS ORDERED: ACETAMINOPHEN 325MG TABLET PO PRN (22:30)
[2021-03-23] MEDS: INSULIN LISPRO 100 UNITS/ML SUBCUT SCH (23:45)
[2021-03-23] MEDS: BLOOD SUGAR DIAGNOSTIC STRIP TEST SCH (23:45)
[2021-03-23] MEDS: SUCRALFATE 1 G/10 ML UDC PO SCH (23:45)
[2021-03-24] MEDS: INSULIN GLARGINE UD 100 UNITS/ML SYR SUBCUT SCH ×2 (01:00→22:19)
[2021-03-24] MEDS ORDERED: MIDODRINE HCL 5MG TABLET PO SCH (06:00)
[2021-03-24] MEDS: SUCRALFATE 1 G/10 ML UDC PO SCH ×5 (06:23→21:00)
[2021-03-24] MEDS: PANTOPRAZOLE 40MG DR TABLET PO SCH ×2 (06:24→17:31)
[2021-03-24] MEDS: BLOOD SUGAR DIAGNOSTIC STRIP TEST SCH ×4 (06:25→20:48)
[2021-03-24] MEDS: INSULIN LISPRO 100 UNITS/ML SUBCUT SCH ×4 (06:31→21:03)
[2021-03-24 06:46] LABS: CHLORIDE 92 mEq/L (98-107)
[2021-03-24 06:54] LABS: BASOPHILS % 0.6 % (0.0-2.0); EOSINOPHILS % 0.6 % (0.0-5.0); HEMATOCRIT. 34.7 % (36.0-48.0); HEMOGLOBIN. 11.4 g/dL (12.0-16.0); LYMPHOCYTES % 8.1 % (20.0-50.0); MEAN CORPUSCULAR HEMOGLOBIN 28.8 pg (28.0-32.0); MEAN CORPUSCULAR VOLUME 87.6 fL (81.0-99.0); MEAN PLATELET VOLUME 8.8 fl (7.4-10.4); MONOCYTES % 9.6 % (2.0-8.0); NEUTROPHILS % 81.1 % (40.0-76.0); PLATELET 268 x1000/uL (130-400); RED BLOOD CELL COUNT 3.96 mill/uL (4.2-5.4); RED CELL DISTRIBUTION WIDTH 19.7 % (11.6-14.6)
[2021-03-24 06:56] LABS: PHOSPHORUS 3.2 mg/dL (2.5-4.9)
[2021-03-24 07:48] VITALS: BP 128/56
[2021-03-24] MEDS ORDERED: POTASSIUM CHLORIDE 20MEQ TABLET SR PO NR (08:40)
[2021-03-24] MEDS ORDERED: APIXABAN 2.5 MG TABLET PO SCH (09:00)
[2021-03-24] MEDS ORDERED: FLUOCINONIDE 0.05% CREAM 15GM TOP SCH (09:00)
[2021-03-24] MEDS: BUDESONIDE 0.5MG/2ML NEB HHN SCH ×3 (09:00→21:53)
[2021-03-24] MEDS ORDERED: FLUTICASONE/VILANTEROL 200-25 BLST.W.DEV ORI SCH (09:00)
[2021-03-24] MEDS ORDERED: FUROSEMIDE 40MG TABLET PO SCH (09:00)
[2021-03-24] MEDS ORDERED: METOLAZONE 5MG TABLET PO SCH (09:00)
[2021-03-24 09:44] LABS: CREATINE KINASE 44 IU/L (26-192)
[2021-03-24] MEDS: FUROSEMIDE 40MG TABLET PO SCH (09:50)
[2021-03-24] MEDS: LORATADINE 10MG TABLET PO SCH (09:51)
[2021-03-24] MEDS: LIDOCAINE 5% PATCH TOP SCH (09:58)
[2021-03-24] MEDS: FLUOCINONIDE 0.05% TOP SCH ×2 (09:59→22:19)
[2021-03-24] MEDS ORDERED: *PATIENT'S OWN MEDICATION STORAGE XX SCH (10:30)
[2021-03-24] MEDS: CEPHALEXIN 250MG/5ML ORAL SYRINGE PO SCH ×2 (13:31→17:32)
[2021-03-24] MEDS: MIDODRINE HCL 5MG TABLET PO SCH ×2 (13:36→21:09)
[2021-03-24] MEDS: DILTIAZEM HCL 30MG TABLET PO SCH ×2 (13:40→21:09)
[2021-03-24] MEDS: DIGOXIN 125MCG TABLET PO SCH (17:30)
[2021-03-24] MEDS: APIXABAN 5 MG TABLET PO SCH (17:30)
[2021-03-24 20:00] VITALS: BP 114/56
[2021-03-24] MEDS: HYDROCODONE/ACETAMINOPHEN 5/325MG TABLET PO PRN (21:02)
[2021-03-25] MEDS: CEPHALEXIN 250MG/5ML ORAL SYRINGE PO SCH ×5 (00:09→23:05)
[2021-03-25] MEDS: DILTIAZEM HCL 30MG TABLET PO SCH ×3 (06:00→21:34)
[2021-03-25] MEDS: HYDROCODONE/ACETAMINOPHEN 5/325MG TABLET PO PRN (06:17)
[2021-03-25] MEDS: PANTOPRAZOLE 40MG DR TABLET PO SCH ×2 (06:20→17:36)
[2021-03-25] MEDS: SUCRALFATE 1 G/10 ML UDC PO SCH ×4 (06:20→21:17)
[2021-03-25] MEDS: BLOOD SUGAR DIAGNOSTIC STRIP TEST SCH ×4 (06:20→21:20)
[2021-03-25] MEDS: MIDODRINE HCL 5MG TABLET PO SCH ×3 (06:20→21:19)
[2021-03-25] MEDS: INSULIN LISPRO 100 UNITS/ML SUBCUT SCH ×4 (06:36→21:00)
[2021-03-25 08:05] VITALS: BP 113/53
[2021-03-25] MEDS: BUDESONIDE 0.5MG/2ML NEB HHN SCH ×2 (08:37→22:02)
[2021-03-25] MEDS: IPRATROPIUM/ALBUTEROL 0.5-3(2.5)MG/3ML NEB HHN PRN ×2 (08:37→15:28)
[2021-03-25] MEDS: LACTULOSE 20G/30ML UDC PO SCH ×6 (09:21→23:21)
[2021-03-25] MEDS: LORATADINE 10MG TABLET PO SCH (09:21)
[2021-03-25] MEDS: FUROSEMIDE 40MG TABLET PO SCH (09:22)
[2021-03-25] MEDS: LIDOCAINE 5% PATCH TOP SCH (09:25)
[2021-03-25] MEDS: FLUOCINONIDE 0.05% TOP SCH ×2 (09:26→21:43)
[2021-03-25] MEDS: APIXABAN 5 MG TABLET PO SCH ×2 (09:28→17:36)
[2021-03-25 10:58] LABS: T4 FREE 1.27 ng/dL (0.76-1.46)
[2021-03-25 10:59] LABS: VITAMIN B12 SERUM 654 pg/mL (211-911)
[2021-03-25 11:05] LABS: FOLIC ACID (FOLATE) SERUM > 20.00 ng/mL (>5.38)
[2021-03-25 12:38] LABS: FERRITIN 488 ng/mL (10-291)
[2021-03-25] MEDS ORDERED: POTASSIUM CHLORIDE 20MEQ TABLET SR PO NR (13:30)
[2021-03-25 15:58] LABS: BASOPHILS % 0.8 % (0.0-2.0); EOSINOPHILS % 1.3 % (0.0-5.0); HEMATOCRIT. 33.7 % (36.0-48.0); HEMOGLOBIN. 11.5 g/dL (12.0-16.0); LYMPHOCYTES % 16.3 % (20.0-50.0); MEAN CORPUSCULAR HEMOGLOBIN 29.4 pg (28.0-32.0); MEAN CORPUSCULAR VOLUME 86.6 fL (81.0-99.0); MEAN PLATELET VOLUME 8.9 fl (7.4-10.4); MONOCYTES % 14.7 % (2.0-8.0); NEUTROPHILS % 66.9 % (40.0-76.0); PLATELET 339 x1000/uL (130-400); RED CELL DISTRIBUTION WIDTH 19.4 % (11.6-14.6)
[2021-03-25] MEDS ORDERED: NA PHOS,M-B/NA PHOS,DI-BA ENEMA 118ML PR NR (17:00)
[2021-03-25] MEDS: DIGOXIN 125MCG TABLET PO SCH (17:54)
[2021-03-25 20:00] VITALS: BP 128/50
[2021-03-25] MEDS: INSULIN GLARGINE UD 100 UNITS/ML SYR SUBCUT SCH (21:40)
[2021-03-25] MEDS: NYSTATIN/TRIAMCIN OINT 15GM TOP SCH (23:05)
[2021-03-26] MEDS: LACTULOSE 20G/30ML UDC PO SCH ×2 (04:00→08:00)
[2021-03-26] MEDS: ONDANSETRON HCL 4MG TABLET PO PRN ×2 (05:03→11:13)
[2021-03-26] MEDS: DILTIAZEM HCL 30MG TABLET PO SCH (05:46)
[2021-03-26] MEDS: SUCRALFATE 1 G/10 ML UDC PO SCH (05:47)
[2021-03-26] MEDS: CEPHALEXIN 250MG/5ML ORAL SYRINGE PO SCH (05:47)
[2021-03-26] MEDS: BLOOD SUGAR DIAGNOSTIC STRIP TEST SCH (05:47)
[2021-03-26] MEDS: MIDODRINE HCL 5MG TABLET PO SCH (05:47)
[2021-03-26] MEDS: HYDROCODONE/ACETAMINOPHEN 5/325MG TABLET PO PRN (05:47)
[2021-03-26] MEDS: PANTOPRAZOLE 40MG DR TABLET PO SCH (05:48)
[2021-03-26] MEDS: NYSTATIN/TRIAMCIN OINT 15GM TOP SCH (05:55)
[2021-03-26] MEDS: INSULIN LISPRO 100 UNITS/ML SUBCUT SCH (06:06)
[2021-03-26 07:31] LABS: BASOPHILS % 0.8 % (0.0-2.0); EOSINOPHILS % 0.5 % (0.0-5.0); HEMATOCRIT. 36.4 % (36.0-48.0); HEMOGLOBIN. 12.1 g/dL (12.0-16.0); LYMPHOCYTES % 10.3 % (20.0-50.0); MEAN CORPUSCULAR VOLUME 87.2 fL (81.0-99.0); MEAN PLATELET VOLUME 9.1 fl (7.4-10.4); MONOCYTES % 9.6 % (2.0-8.0); NEUTROPHILS % 78.8 % (40.0-76.0); PLATELET 427 x1000/uL (130-400); RED BLOOD CELL COUNT 4.18 mill/uL (4.2-5.4); RED CELL DISTRIBUTION WIDTH 19.3 % (11.6-14.6)
[2021-03-26 07:46] LABS: PHOSPHORUS 5.1 mg/dL (2.5-4.9)
[2021-03-26 08:02] VITALS: BP 112/43
[2021-03-26] MEDS: LORATADINE 10MG TABLET PO SCH (08:52)
[2021-03-26] MEDS: LIDOCAINE 5% PATCH TOP SCH (08:53)
[2021-03-26] MEDS: FLUOCINONIDE 0.05% TOP SCH (08:53)
[2021-03-26 09:40] VITALS: BP 112/43
[2021-03-26] MEDS ORDERED: SODIUM CHLORIDE 0.9% 1,000 ML IV SCH ×2 (10:00→10:45)
[2021-03-29 15:06] LABS: 25-HYDROXY VITAMIN D3 11 ng/mL (.)
== END 2021-03-26 11:30 | disposition short-term general hospital (02) | DRG 947 ==
PROVIDERS: ADMIT Physical Medicine & Rehabilitation Spinal Cord Injury Medicine; ATTEND Family Medicine Adult Medicine
DX: R53.81 Other malaise (principal); I26.99 Other pulmonary embolism without acute cor pulmonale; J96.00 Acute respiratory failure, unspecified whether with hypoxia or hypercapnia; E87.1 Hypo-osmolality and hyponatremia; I13.0 Hypertensive heart and chronic kidney disease with heart failure and stage 1 through stage 4 chronic kidney disease, or unspecified chronic kidney disease; I48.19 Other persistent atrial fibrillation; N17.9 Acute kidney failure, unspecified; I42.9 Cardiomyopathy, unspecified; J84.9 Interstitial pulmonary disease, unspecified; G82.20 Paraplegia, unspecified; K92.2 Gastrointestinal hemorrhage, unspecified; L97.909 Non-pressure chronic ulcer of unspecified part of unspecified lower leg with unspecified severity; J98.11 Atelectasis; L03.115 Cellulitis of right lower limb; L03.116 Cellulitis of left lower limb; I82.612 Acute embolism and thrombosis of superficial veins of left upper extremity; D64.9 Anemia, unspecified; E11.22 Type 2 diabetes mellitus with diabetic chronic kidney disease; E11.42 Type 2 diabetes mellitus with diabetic polyneuropathy; E66.01 Morbid (severe) obesity due to excess calories; E78.00 Pure hypercholesterolemia, unspecified; E78.5 Hyperlipidemia, unspecified; E87.6 Hypokalemia; E87.8 Other disorders of electrolyte and fluid balance, not elsewhere classified; I25.10 Atherosclerotic heart disease of native coronary artery without angina pectoris; I27.20 Pulmonary hypertension, unspecified; I50.9 Heart failure, unspecified; B36.9 Superficial mycosis, unspecified; N18.9 Chronic kidney disease, unspecified; I95.9 Hypotension, unspecified; J44.9 Chronic obstructive pulmonary disease, unspecified; K21.9 Gastro-esophageal reflux disease without esophagitis; G47.33 Obstructive sleep apnea (adult) (pediatric); I08.1 Rheumatic disorders of both mitral and tricuspid valves; M47.9 Spondylosis, unspecified; Z60.2 Problems related to living alone; K76.0 Fatty (change of) liver, not elsewhere classified; E11.51 Type 2 diabetes mellitus with diabetic peripheral angiopathy without gangrene; I87.8 Other specified disorders of veins; S09.90XA Unspecified injury of head, initial encounter; W18.30XA Fall on same level, unspecified, initial encounter; R26.9 Unspecified abnormalities of gait and mobility; Z95.5 Presence of coronary angioplasty implant and graft; Z87.891 Personal history of nicotine dependence; Z86.711 Personal history of pulmonary embolism; I25.2 Old myocardial infarction; Z79.899 Other long term (current) drug therapy; Z79.01 Long term (current) use of anticoagulants; Z90.710 Acquired absence of both cervix and uterus; Z99.81 Dependence on supplemental oxygen; Z82.49 Family history of ischemic heart disease and other diseases of the circulatory system; Z68.33 Body mass index [BMI] 33.0-33.9, adult; Z79.4 Long term (current) use of insulin; Z86.72 Personal history of thrombophlebitis; Y93.89 Activity, other specified; Y92.89 Other specified places as the place of occurrence of the external cause; Y99.8 Other external cause status
CPT/HCPCS: 36415; 71045; 73110; 73130; 76770; 80048; 80053; 82270; 82306; 82550; 82607; 82728; 82746; 82962; 83036; 83540; 83550; 83735; 83880; 84100; 84134; 84439; 84443; 84481; 84484; 85025; 93005; 93306; 93970; 93971; 94640; 97110; 97162; 97166; 97530; 97535; A6261; C1893; J1815; J7626; Q0162

== ENCOUNTER 2021-03-26 11:30 | Inpatient (IN) | payer BC, MEDICARE ==
[~2021-03-26] VITALS: Ht 167.6 cm; Wt 106.7 kg
[2021-03-26] VITALS (34 sets, daily range): BP systolic 79–171; BP diastolic 47–98
[2021-03-26] MEDS ORDERED: DEXTROSE 50% WATER 50ML SYRINGE IV PRN (12:30)
[2021-03-26 13:30] LABS: HEMATOCRIT 36.6 % (36.0-48.0); HEMOGLOBIN 12.3 g/dL (12.0-16.0)
[2021-03-26] MEDS: BLOOD SUGAR DIAGNOSTIC STRIP TEST SCH ×3 (13:34→21:00)
[2021-03-26 13:43] LABS: TOTAL IRON BINDING CAPACITY 316 ug/dL (250-450)
[2021-03-26 14:06] LABS: VITAMIN B12 SERUM 899 pg/mL (211-911)
[2021-03-26] MEDS: INSULIN LISPRO 100 UNITS/ML SUBCUT SCH ×3 (14:32→21:00)
[2021-03-26 14:42] LABS: FERRITIN 615 ng/mL (10-291)
[2021-03-26] MEDS ORDERED: *PATIENT'S OWN MEDICATION STORAGE XX SCH (16:00)
[2021-03-26] MEDS: MIDODRINE HCL 5MG TABLET PO SCH ×2 (17:23→20:00)
[2021-03-26] MEDS: NOREPINEPHRINE 32 MG in DEXT 5% WATER 218 ML IV PRN (18:20)
[2021-03-26 20:30] LABS: HEMATOCRIT 38.2 % (36.0-48.0); HEMOGLOBIN 12.8 g/dL (12.0-16.0)
[2021-03-26] MEDS ORDERED: PANTOPRAZOLE SODIUM 40 MG/VIAL IV SCH (21:00)
[2021-03-27] VITALS (95 sets, daily range): BP systolic 75–151; BP diastolic 30–106
[2021-03-27 00:56] LABS: HEMATOCRIT 38.4 % (36.0-48.0); HEMOGLOBIN 12.5 g/dL (12.0-16.0); MEAN CORPUSCULAR HEMOGLOBIN 28.5 pg (28.0-32.0); MEAN CORPUSCULAR VOLUME 87.3 fL (81.0-99.0); PLATELET 492 x1000/uL (130-400); RED BLOOD CELL COUNT 4.39 mill/uL (4.2-5.4)
[2021-03-27 05:42] LABS: BASOPHILS % 1.1 % (0.0-2.0); EOSINOPHILS % 0.8 % (0.0-5.0); HEMATOCRIT. 37.3 % (36.0-48.0); HEMOGLOBIN. 12.1 g/dL (12.0-16.0); LYMPHOCYTES % 14.7 % (20.0-50.0); MEAN CORPUSCULAR HEMOGLOBIN 28.3 pg (28.0-32.0); MEAN CORPUSCULAR VOLUME 87.3 fL (81.0-99.0); MEAN PLATELET VOLUME 9.6 fl (7.4-10.4); MONOCYTES % 12.2 % (2.0-8.0); NEUTROPHILS % 71.2 % (40.0-76.0); PLATELET 460 x1000/uL (130-400); RED BLOOD CELL COUNT 4.27 mill/uL (4.2-5.4); RED CELL DISTRIBUTION WIDTH 19.2 % (11.6-14.6)
[2021-03-27 06:20] LABS: CHLORIDE 96 mEq/L (98-107)
[2021-03-27] MEDS: BLOOD SUGAR DIAGNOSTIC STRIP TEST SCH ×4 (08:36→21:12)
[2021-03-27] MEDS: PANTOPRAZOLE SODIUM 40 MG/VIAL IV SCH (08:46)
[2021-03-27] MEDS: MIDODRINE HCL 5MG TABLET PO SCH ×3 (08:46→17:00)
[2021-03-27] MEDS ORDERED: DEXTROSE 50% WATER 50ML SYRINGE IV PRN (09:00)
[2021-03-27 11:26] LABS: CLARITY URINE TURBID (CLEAR); COLOR URINE DARK YELLOW (YELLOW); KETONES URINE TRACE (NEGATIVE); LEUKOCYTE ESTERASE URINE 3+ (NEGATIVE); NITRITE URINE NEGATIVE (NEGATIVE); OCCULT BLOOD URINE 1+ (NEGATIVE); PROTEIN URINE 1+ (NEGATIVE); SPECIFIC GRAVITY URINE 1.023 (1.005-1.030)
[2021-03-27] MEDS ORDERED: VANCOMYCIN 1,750 MG in DEXT 5% WATER 250 ML IV NR (12:00)
[2021-03-27] MEDS ORDERED: BACTERIOSTATIC SODIUM CHLORIDE 0.9% 30ML VIAL IJ ONE (12:00)
[2021-03-27] MEDS: PIPERACILLIN/TAZOBACTAM 2.25 G in DEXTROSE 5% WATER 50 ML IV SCH ×2 (12:21→22:18)
[2021-03-27] MEDS: SODIUM CHLORIDE 0.9% 1,000 ML IV SCH (12:21)
[2021-03-27] MEDS: INSULIN LISPRO 100 UNITS/ML SUBCUT SCH ×3 (12:23→21:00)
[2021-03-27] MEDS ORDERED: BLOOD SUGAR DIAGNOSTIC STRIP TEST SCH (12:50)
[2021-03-27 13:13] LABS: INR 1.1; PARTIAL THROMBOPLASTIN TIME 40.1 sec (23.4-31.0); PROTHROMBIN TIME 12.2 sec (9.6-11.0)
[2021-03-27] MEDS ORDERED: MIDAZOLAM HCL 5 MG/5 ML VIAL ONE (13:20)
[2021-03-27] MEDS ORDERED: FENTANYL CITRATE/PF 50MCG/ML 2ML VIAL ONE (13:20)
[2021-03-27] MEDS ORDERED: MIDAZOLAM HCL 5 MG/5 ML VIAL IV PRN (13:49)
[2021-03-27 13:58] LABS: HEPATITIS B SURFACE ANTIGEN NEGATIVE
[2021-03-27] MEDS: IRON SUCROSE COMPLEX 100 MG/5 ML ML IV SCH (14:00)
[2021-03-27 14:24] LABS: HEPATITIS A AB IGM NEGATIVE (NEGATIVE)
[2021-03-27] MEDS: PHENYLEPHRINE 50 MG in DEXT 5% WATER 245 ML IV PRN (20:16)
[2021-03-28] VITALS (99 sets, daily range): BP systolic 90–141; BP diastolic 34–96
[2021-03-28] MEDS: NOREPINEPHRINE 32 MG in DEXT 5% WATER 218 ML IV PRN (01:28)
[2021-03-28] MEDS: SODIUM CHLORIDE 0.9% 1,000 ML IV SCH ×2 (01:47→14:29)
[2021-03-28] MEDS: PIPERACILLIN/TAZOBACTAM 2.25 G in DEXTROSE 5% WATER 50 ML IV SCH ×3 (05:50→21:22)
[2021-03-28 05:55] LABS: BASOPHILS % 2.3 % (0.0-2.0); EOSINOPHILS % 2.1 % (0.0-5.0); HEMATOCRIT. 35.4 % (36.0-48.0); HEMOGLOBIN. 11.2 g/dL (12.0-16.0); LYMPHOCYTES % 19.3 % (20.0-50.0); MEAN CORPUSCULAR HEMOGLOBIN 28.4 pg (28.0-32.0); MEAN PLATELET VOLUME 9.2 fl (7.4-10.4); NEUTROPHILS % 63.3 % (40.0-76.0); PLATELET 509 x1000/uL (130-400); RED BLOOD CELL COUNT 3.93 mill/uL (4.2-5.4); RED CELL DISTRIBUTION WIDTH 19.5 % (11.6-14.6)
[2021-03-28] MEDS: PHENYLEPHRINE 50 MG in DEXT 5% WATER 245 ML IV PRN ×2 (05:55→14:30)
[2021-03-28] MEDS: BLOOD SUGAR DIAGNOSTIC STRIP TEST SCH ×4 (07:50→21:22)
[2021-03-28] MEDS: INSULIN LISPRO 100 UNITS/ML SUBCUT SCH ×4 (08:20→21:21)
[2021-03-28] MEDS: MIDODRINE HCL 5MG TABLET PO SCH ×3 (09:34→21:22)
[2021-03-28] MEDS: PANTOPRAZOLE SODIUM 40 MG/VIAL IV SCH (09:34)
[2021-03-28] MEDS: IRON SUCROSE COMPLEX 100 MG/5 ML ML IV SCH (09:34)
[2021-03-28] MEDS: DOPAMINE 400MG/250ML PREMIX 250 ML IV SCH (12:22)
[2021-03-28] MEDS: NYSTATIN/TRIAMCIN CREAM 15GM TOP SCH (21:22)
[2021-03-29] VITALS (101 sets, daily range): BP systolic 73–151; BP diastolic 16–102
[2021-03-29] MEDS: PHENYLEPHRINE 50 MG in DEXT 5% WATER 245 ML IV PRN (02:00)
[2021-03-29] MEDS: SODIUM CHLORIDE 0.9% 1,000 ML IV SCH ×2 (03:58→17:56)
[2021-03-29] MEDS: PIPERACILLIN/TAZOBACTAM 2.25 G in DEXTROSE 5% WATER 50 ML IV SCH ×3 (05:30→21:02)
[2021-03-29] MEDS: MIDODRINE HCL 5MG TABLET PO SCH ×4 (05:38→23:14)
[2021-03-29 06:00] LABS: BASOPHILS % 1.3 % (0.0-2.0); EOSINOPHILS % 5.6 % (0.0-5.0); HEMATOCRIT. 35.3 % (36.0-48.0); HEMOGLOBIN. 11.4 g/dL (12.0-16.0); LYMPHOCYTES % 22.6 % (20.0-50.0); MEAN CORPUSCULAR HEMOGLOBIN 28.7 pg (28.0-32.0); MEAN CORPUSCULAR VOLUME 88.6 fL (81.0-99.0); MEAN PLATELET VOLUME 8.8 fl (7.4-10.4); MONOCYTES % 14.4 % (2.0-8.0); NEUTROPHILS % 56.1 % (40.0-76.0); PLATELET 369 x1000/uL (130-400); RED BLOOD CELL COUNT 3.98 mill/uL (4.2-5.4)
[2021-03-29] MEDS ORDERED: POTASSIUM CHLORIDE 20MEQ/PACKET PO SCH (06:30)
[2021-03-29] MEDS: BLOOD SUGAR DIAGNOSTIC STRIP TEST SCH ×4 (08:26→21:02)
[2021-03-29] MEDS: PANTOPRAZOLE SODIUM 40 MG/VIAL IV SCH (08:26)
[2021-03-29] MEDS: NYSTATIN/TRIAMCIN CREAM 15GM TOP SCH ×3 (08:26→17:57)
[2021-03-29] MEDS: INSULIN LISPRO 100 UNITS/ML SUBCUT SCH ×4 (08:28→21:01)
[2021-03-29] MEDS ORDERED: VANCOMYCIN 750 MG PREMIX 150 ML IV NR (10:30)
[2021-03-29] MEDS: IPRATROPIUM/ALBUTEROL 0.5-3(2.5)MG/3ML NEB HHN SCH (19:45)
[2021-03-30] VITALS (100 sets, daily range): BP systolic 84–134; BP diastolic 31–79
[2021-03-30] MEDS: DOPAMINE 400MG/250ML PREMIX 250 ML IV SCH (01:54)
[2021-03-30] MEDS: IPRATROPIUM/ALBUTEROL 0.5-3(2.5)MG/3ML NEB HHN SCH ×4 (02:06→20:17)
[2021-03-30 06:03] LABS: BASOPHILS % 1.2 % (0.0-2.0); EOSINOPHILS % 5.1 % (0.0-5.0); HEMOGLOBIN. 10.2 g/dL (12.0-16.0); LYMPHOCYTES % 20.8 % (20.0-50.0); MEAN CORPUSCULAR HEMOGLOBIN 28.1 pg (28.0-32.0); MEAN CORPUSCULAR VOLUME 88.5 fL (81.0-99.0); MEAN PLATELET VOLUME 8.4 fl (7.4-10.4); MONOCYTES % 11.9 % (2.0-8.0); PLATELET 306 x1000/uL (130-400); RED BLOOD CELL COUNT 3.62 mill/uL (4.2-5.4); RED CELL DISTRIBUTION WIDTH 18.9 % (11.6-14.6)
[2021-03-30 06:06] LABS: PHOSPHORUS 2.1 mg/dL (2.5-4.9)
[2021-03-30] MEDS: MIDODRINE HCL 5MG TABLET PO SCH ×3 (06:10→17:25)
[2021-03-30] MEDS: PIPERACILLIN/TAZOBACTAM 2.25 G in DEXTROSE 5% WATER 50 ML IV SCH ×2 (06:10→13:12)
[2021-03-30] MEDS ORDERED: POTASSIUM CHLORIDE 20MEQ TABLET SR PO NR (06:15)
[2021-03-30] MEDS: SODIUM CHLORIDE 0.9% 1,000 ML IV SCH (06:18)
[2021-03-30] MEDS: BLOOD SUGAR DIAGNOSTIC STRIP TEST SCH ×4 (08:14→20:39)
[2021-03-30] MEDS: NYSTATIN/TRIAMCIN CREAM 15GM TOP SCH ×3 (08:14→17:25)
[2021-03-30] MEDS: PANTOPRAZOLE SODIUM 40 MG/VIAL IV SCH (08:14)
[2021-03-30] MEDS: INSULIN LISPRO 100 UNITS/ML SUBCUT SCH ×4 (08:17→20:43)
[2021-03-30] MEDS ORDERED: POTASSIUM PHOS,M-BASIC-D-BASIC 20 MMOL in DEXT 5% WATER 243.3333 ML IV SCH (11:00)
[2021-03-30] MEDS: ASPIRIN 81MG TABLET PO SCH (11:00)
[2021-03-30] MEDS: PIPERACILLIN/TAZOBACTAM 2.25G in DEXTROSE 5% WATER 50ML IV SCH (17:25)
[2021-03-30] MEDS: VANCOMYCIN 1 G PREMIX 200 ML IV SCH (17:25)
[2021-03-30] MEDS: DOCUSATE SODIUM 100MG CAPSULE PO SCH (20:42)
[2021-03-31] VITALS (83 sets, daily range): BP systolic 86–138; BP diastolic 47–83
[2021-03-31] MEDS: PIPERACILLIN/TAZOBACTAM 2.25G in DEXTROSE 5% WATER 50ML IV SCH ×5 (00:55→23:54)
[2021-03-31] MEDS: MIDODRINE HCL 5MG TABLET PO SCH ×5 (00:56→21:09)
[2021-03-31] MEDS: IPRATROPIUM/ALBUTEROL 0.5-3(2.5)MG/3ML NEB HHN SCH ×4 (02:13→20:17)
[2021-03-31 06:06] LABS: CHLORIDE 111 mEq/L (98-107)
[2021-03-31 06:11] LABS: BASOPHILS % 1.1 % (0.0-2.0); EOSINOPHILS % 6.4 % (0.0-5.0); HEMATOCRIT. 31.1 % (36.0-48.0); HEMOGLOBIN. 10.3 g/dL (12.0-16.0); LYMPHOCYTES % 18.9 % (20.0-50.0); MEAN CORPUSCULAR HEMOGLOBIN 29.3 pg (28.0-32.0); MEAN CORPUSCULAR VOLUME 88.7 fL (81.0-99.0); MEAN PLATELET VOLUME 8.6 fl (7.4-10.4); MONOCYTES % 9.3 % (2.0-8.0); NEUTROPHILS % 64.3 % (40.0-76.0); PLATELET 277 x1000/uL (130-400); RED BLOOD CELL COUNT 3.51 mill/uL (4.2-5.4); RED CELL DISTRIBUTION WIDTH 18.9 % (11.6-14.6)
[2021-03-31 06:18] LABS: PHOSPHORUS 2.3 mg/dL (2.5-4.9)
[2021-03-31] MEDS: BLOOD SUGAR DIAGNOSTIC STRIP TEST SCH ×4 (07:50→21:08)
[2021-03-31] MEDS: NYSTATIN/TRIAMCIN CREAM 15GM TOP SCH ×3 (09:24→17:00)
[2021-03-31] MEDS: PANTOPRAZOLE SODIUM 40 MG/VIAL IV SCH (09:24)
[2021-03-31] MEDS: DOCUSATE SODIUM 100MG CAPSULE PO SCH (09:25)
[2021-03-31] MEDS: ASPIRIN 81MG TABLET PO SCH (09:25)
[2021-03-31] MEDS: MULTIVITAMINS,THER W-MINERALS TABLET PO SCH (09:25)
[2021-03-31] MEDS: INSULIN LISPRO 100 UNITS/ML SUBCUT SCH ×4 (09:34→21:08)
[2021-03-31] MEDS ORDERED: POTASSIUM PHOS,M-BASIC-D-BASIC 20 MMOL in DEXT 5% WATER 243.3333 ML IV SCH (11:00)
[2021-03-31] MEDS: MAGNESIUM OXIDE 400MG TABLET PO SCH (14:41)
[2021-03-31] MEDS ORDERED: MAGNESIUM 2 G PREMIX 50 ML IV NR (15:00)
[2021-03-31] MEDS: VANCOMYCIN 1 G PREMIX 200 ML IV SCH (18:04)
[2021-03-31] MEDS: DOPAMINE 400MG/250ML PREMIX 250 ML IV SCH (18:04)
[2021-04-01] VITALS (16 sets, daily range): BP systolic 102–142; BP diastolic 54–96
[2021-04-01] MEDS: IPRATROPIUM/ALBUTEROL 0.5-3(2.5)MG/3ML NEB HHN SCH ×4 (00:38→21:01)
[2021-04-01] MEDS: PIPERACILLIN/TAZOBACTAM 2.25G in DEXTROSE 5% WATER 50ML IV SCH ×2 (05:19→12:35)
[2021-04-01] MEDS: MIDODRINE HCL 5MG TABLET PO SCH ×3 (05:41→21:49)
[2021-04-01] MEDS: BLOOD SUGAR DIAGNOSTIC STRIP TEST SCH ×4 (06:10→21:46)
[2021-04-01 06:28] LABS: BASOPHILS % 1.2 % (0.0-2.0); EOSINOPHILS % 5.1 % (0.0-5.0); HEMATOCRIT. 31.4 % (36.0-48.0); HEMOGLOBIN. 10.1 g/dL (12.0-16.0); LYMPHOCYTES % 23.3 % (20.0-50.0); MEAN CORPUSCULAR HEMOGLOBIN 28.7 pg (28.0-32.0); MEAN CORPUSCULAR VOLUME 89.3 fL (81.0-99.0); MEAN PLATELET VOLUME 8.8 fl (7.4-10.4); MONOCYTES % 8.7 % (2.0-8.0); NEUTROPHILS % 61.7 % (40.0-76.0); PLATELET 276 x1000/uL (130-400); RED BLOOD CELL COUNT 3.51 mill/uL (4.2-5.4); RED CELL DISTRIBUTION WIDTH 18.7 % (11.6-14.6)
[2021-04-01 06:41] LABS: PHOSPHORUS 2.8 mg/dL (2.5-4.9)
[2021-04-01] MEDS: INSULIN LISPRO 100 UNITS/ML SUBCUT SCH ×4 (07:20→21:56)
[2021-04-01] MEDS: ASPIRIN 81MG TABLET PO SCH (08:03)
[2021-04-01] MEDS: MAGNESIUM OXIDE 400MG TABLET PO SCH (08:03)
[2021-04-01] MEDS: DOCUSATE SODIUM 100MG CAPSULE PO SCH (08:03)
[2021-04-01] MEDS: MULTIVITAMINS,THER W-MINERALS TABLET PO SCH (08:04)
[2021-04-01] MEDS: PANTOPRAZOLE SODIUM 40 MG/VIAL IV SCH (08:47)
[2021-04-01] MEDS: NYSTATIN/TRIAMCIN CREAM 15GM TOP SCH ×3 (11:25→17:00)
[2021-04-01] MEDS ORDERED: LIDOCAINE HCL 1% 20ML VIAL (Pyxis) INJ ONE (12:47)
[2021-04-01] MEDS ORDERED: GENTAMICIN/NS IRRIGATION 500 ML IR ONE (12:47)
[2021-04-01] MEDS ORDERED: IODIXANOL 320MG/ML 100 ML BOTTLE IV ONE (12:47)
[2021-04-01] MEDS ORDERED: KCL 20MEQ/100ML PREMIX 100 ML IV NR (13:00)
[2021-04-01 13:14] LABS: BG BASE EXCESS 1.1 mmol/L (-2.0-2.0); BG CARBOXYHEMOGLOBIN 0.6 % (0.5-1.5); BG DEOXYHEMOGLOBIN 2.6 % (0.0-5.0); BG FRACTION INSPIRED OXYGEN 32; BG HCO3 ACT 24.9 mmol/L (22.0-26.0); BG METHEMOGLOBIN 0.2 % (0.0-1.5); BG OXYGEN SATURATION 97.4 % (92.0-98.5); BG OXYHEMOGLOBIN 96.6 % (94.0-97.0); BG PCO2 36.7 mmHg (35.0-45.0); BG SAMPLE SITE RIGHT RADIAL; BG TOTAL HEMOGLOBIN 11.4 g/dL (12.0-18.0); BG VENT MODE NASAL CANNULA
[2021-04-01] MEDS ORDERED: FENTANYL CITRATE/PF 50MCG/ML 2ML VIAL ONE ×2 (13:52→15:28)
[2021-04-01] MEDS ORDERED: MIDAZOLAM HCL 2 MG/2 ML VIAL ONE (13:52)
[2021-04-01] MEDS ORDERED: PROPOFOL 200MG/20ML VIAL IV ONE (13:53)
[2021-04-01] MEDS ORDERED: ONDANSETRON HCL 4MG/2ML INJ ONE (13:53)
[2021-04-01] MEDS ORDERED: DEXAMETHASONE 4MG/ML 1ML VIAL ONE (13:53)
[2021-04-01] MEDS ORDERED: GENTAMICIN SULF 40MG/ML 2ML VIAL ONE (14:28)
[2021-04-01] MEDS ORDERED: MEPERIDINE HCL/PF 25MG/ML CPJ IV PRN ×2 (14:45→16:45)
[2021-04-01] MEDS ORDERED: LABETALOL 5MG/ML SYR 20 MG/4 ML SYRINGE IV PRN ×2 (14:45→16:45)
[2021-04-01] MEDS ORDERED: ONDANSETRON HCL 4MG/2ML INJ IV PRN ×3 (14:45→16:45)
[2021-04-01] MEDS ORDERED: HYDROMORPHONE HCL/PF 2MG/ML CPJ IV PRN ×2 (14:45→16:45)
[2021-04-01] MEDS: VANCOMYCIN 1 G PREMIX 200 ML IV SCH (19:50)
[2021-04-01] MEDS: DOPAMINE 400MG/250ML PREMIX 250 ML IV SCH (22:37)
[2021-04-02] VITALS (20 sets, daily range): BP systolic 88–133; BP diastolic 42–77
[2021-04-02] MEDS: MIDODRINE HCL 5MG TABLET PO SCH ×3 (06:00→21:19)
[2021-04-02] MEDS: BLOOD SUGAR DIAGNOSTIC STRIP TEST SCH ×4 (06:15→21:21)
[2021-04-02 06:52] LABS: BASOPHILS % 0.3 % (0.0-2.0); HEMATOCRIT. 32.8 % (36.0-48.0); HEMOGLOBIN. 10.5 g/dL (12.0-16.0); LYMPHOCYTES % 10.6 % (20.0-50.0); MEAN CORPUSCULAR HEMOGLOBIN 28.5 pg (28.0-32.0); MEAN CORPUSCULAR VOLUME 88.7 fL (81.0-99.0); MEAN PLATELET VOLUME 8.6 fl (7.4-10.4); MONOCYTES % 5.3 % (2.0-8.0); NEUTROPHILS % 83.8 % (40.0-76.0); PLATELET 287 x1000/uL (130-400); RED CELL DISTRIBUTION WIDTH 19.4 % (11.6-14.6)
[2021-04-02 06:59] LABS: CHLORIDE 108 mEq/L (98-107)
[2021-04-02 07:04] LABS: PHOSPHORUS 2.8 mg/dL (2.5-4.9)
[2021-04-02] MEDS: IPRATROPIUM/ALBUTEROL 0.5-3(2.5)MG/3ML NEB HHN SCH ×3 (08:32→21:03)
[2021-04-02] MEDS: MULTIVITAMINS,THER W-MINERALS TABLET PO SCH (08:43)
[2021-04-02] MEDS: ASPIRIN 81MG TABLET PO SCH (08:43)
[2021-04-02] MEDS: DOCUSATE SODIUM 100MG CAPSULE PO SCH (08:43)
[2021-04-02] MEDS: PANTOPRAZOLE SODIUM 40 MG/VIAL IV SCH (08:43)
[2021-04-02] MEDS: NYSTATIN/TRIAMCIN CREAM 15GM TOP SCH ×3 (08:44→17:03)
[2021-04-02] MEDS: MAGNESIUM OXIDE 400MG TABLET PO SCH (08:44)
[2021-04-02] MEDS: INSULIN LISPRO 100 UNITS/ML SUBCUT SCH ×4 (08:45→21:21)
[2021-04-02] MEDS ORDERED: GABA-529 PO (10:22)
[2021-04-02] MEDS ORDERED: ACETAMINOPHEN 325MG TABLET PO PRN (21:00)
[2021-04-02] MEDS: GABAPENTIN 100MG CAPSULE PO SCH (21:19)
[2021-04-03] VITALS (17 sets, daily range): BP systolic 96–145; BP diastolic 38–75
[2021-04-03] MEDS: IPRATROPIUM/ALBUTEROL 0.5-3(2.5)MG/3ML NEB HHN SCH ×4 (01:48→20:12)
[2021-04-03] MEDS: MIDODRINE HCL 5MG TABLET PO SCH ×3 (05:55→21:05)
[2021-04-03] MEDS: BLOOD SUGAR DIAGNOSTIC STRIP TEST SCH ×4 (06:53→21:05)
[2021-04-03] MEDS: INSULIN LISPRO 100 UNITS/ML SUBCUT SCH ×4 (06:54→21:07)
[2021-04-03 08:47] LABS: BASOPHILS % 0.9 % (0.0-2.0); EOSINOPHILS % 2.6 % (0.0-5.0); HEMATOCRIT. 29.7 % (36.0-48.0); HEMOGLOBIN. 9.8 g/dL (12.0-16.0); LYMPHOCYTES % 20.4 % (20.0-50.0); MEAN CORPUSCULAR HEMOGLOBIN 29.6 pg (28.0-32.0); MEAN CORPUSCULAR VOLUME 89.6 fL (81.0-99.0); MEAN PLATELET VOLUME 8.6 fl (7.4-10.4); NEUTROPHILS % 68.1 % (40.0-76.0); PLATELET 257 x1000/uL (130-400); RED BLOOD CELL COUNT 3.31 mill/uL (4.2-5.4); RED CELL DISTRIBUTION WIDTH 19.2 % (11.6-14.6)
[2021-04-03] MEDS: ASPIRIN 81MG TABLET PO SCH (09:36)
[2021-04-03] MEDS: GABAPENTIN 100MG CAPSULE PO SCH ×3 (09:36→17:07)
[2021-04-03] MEDS: PANTOPRAZOLE SODIUM 40 MG/VIAL IV SCH (09:37)
[2021-04-03] MEDS: NYSTATIN/TRIAMCIN CREAM 15GM TOP SCH ×3 (09:37→17:07)
[2021-04-03] MEDS: MAGNESIUM OXIDE 400MG TABLET PO SCH (09:37)
[2021-04-03] MEDS: DOCUSATE SODIUM 100MG CAPSULE PO SCH (09:37)
[2021-04-03] MEDS ORDERED: LACTULOSE 20G/30ML UDC PO SCH (10:00)
[2021-04-03] MEDS: POLYETHYLENE GLYCOL 3350 (17GM) 1 DOSE PACK PO SCH (12:15)
[2021-04-03] MEDS: MULTIVITAMINS,THER W-MINERALS TABLET PO SCH (14:50)
[2021-04-04] VITALS (12 sets, daily range): BP systolic 102–135; BP diastolic 49–76
[2021-04-04] MEDS: IPRATROPIUM/ALBUTEROL 0.5-3(2.5)MG/3ML NEB HHN SCH ×4 (02:45→20:57)
[2021-04-04] MEDS: MIDODRINE HCL 5MG TABLET PO SCH ×3 (05:31→21:20)
[2021-04-04] MEDS: BLOOD SUGAR DIAGNOSTIC STRIP TEST SCH ×4 (06:08→21:14)
[2021-04-04] MEDS: ASPIRIN 81MG TABLET PO SCH (08:27)
[2021-04-04] MEDS: MAGNESIUM OXIDE 400MG TABLET PO SCH (08:27)
[2021-04-04] MEDS: DOCUSATE SODIUM 100MG CAPSULE PO SCH (08:27)
[2021-04-04] MEDS: MULTIVITAMINS,THER W-MINERALS TABLET PO SCH (08:27)
[2021-04-04] MEDS: PANTOPRAZOLE SODIUM 40 MG/VIAL IV SCH (08:27)
[2021-04-04] MEDS: NYSTATIN/TRIAMCIN CREAM 15GM TOP SCH ×3 (08:28→17:27)
[2021-04-04] MEDS: GABAPENTIN 100MG CAPSULE PO SCH ×3 (08:28→17:27)
[2021-04-04] MEDS: POLYETHYLENE GLYCOL 3350 (17GM) 1 DOSE PACK PO SCH (08:28)
[2021-04-04] MEDS: INSULIN LISPRO 100 UNITS/ML SUBCUT SCH ×4 (08:28→21:21)
[2021-04-04] MEDS: LACTULOSE 20G/30ML UDC PO SCH ×3 (12:39→21:00)
[2021-04-05] VITALS (13 sets, daily range): BP systolic 96–147; BP diastolic 40–71
[2021-04-05] MEDS: IPRATROPIUM/ALBUTEROL 0.5-3(2.5)MG/3ML NEB HHN SCH ×4 (02:35→19:49)
[2021-04-05] MEDS: MIDODRINE HCL 5MG TABLET PO SCH ×3 (06:54→21:13)
[2021-04-05] MEDS: BLOOD SUGAR DIAGNOSTIC STRIP TEST SCH ×4 (07:15→21:09)
[2021-04-05 07:23] LABS: BASOPHILS % 0.8 % (0.0-2.0); EOSINOPHILS % 3.3 % (0.0-5.0); HEMATOCRIT. 30.5 % (36.0-48.0); HEMOGLOBIN. 9.7 g/dL (12.0-16.0); LYMPHOCYTES % 20.3 % (20.0-50.0); MEAN CORPUSCULAR HEMOGLOBIN 28.7 pg (28.0-32.0); MONOCYTES % 8.1 % (2.0-8.0); NEUTROPHILS % 67.5 % (40.0-76.0); PLATELET 231 x1000/uL (130-400); RED BLOOD CELL COUNT 3.39 mill/uL (4.2-5.4); RED CELL DISTRIBUTION WIDTH 19.3 % (11.6-14.6)
[2021-04-05] MEDS: PANTOPRAZOLE SODIUM 40 MG/VIAL IV SCH (08:46)
[2021-04-05] MEDS: DOCUSATE SODIUM 100MG CAPSULE PO SCH (08:46)
[2021-04-05] MEDS: GABAPENTIN 100MG CAPSULE PO SCH ×3 (08:46→17:44)
[2021-04-05] MEDS: MAGNESIUM OXIDE 400MG TABLET PO SCH (08:46)
[2021-04-05] MEDS: ASPIRIN 81MG TABLET PO SCH (08:46)
[2021-04-05] MEDS: MULTIVITAMINS,THER W-MINERALS TABLET PO SCH (08:46)
[2021-04-05] MEDS: NYSTATIN/TRIAMCIN CREAM 15GM TOP SCH ×3 (08:46→17:44)
[2021-04-05] MEDS: POLYETHYLENE GLYCOL 3350 (17GM) 1 DOSE PACK PO SCH (08:47)
[2021-04-05] MEDS: INSULIN LISPRO 100 UNITS/ML SUBCUT SCH ×4 (08:47→21:13)
[2021-04-05] MEDS ORDERED: APIXABAN 2.5 MG TABLET PO SCH (17:20)
[2021-04-06] MEDS ORDERED: GABA-529 PO (18:51)
[2021-04-06] MEDS ORDERED: FURO40TA5 PO (18:51)
[2021-04-06] MEDS ORDERED: INSU100I28 SQ (18:52)
[2021-04-06] MEDS ORDERED: GLYB5TAB7 PO (18:56)
[2021-04-06] MEDS ORDERED: BLOO-158 HHN (18:57)
[2021-04-06] MEDS ORDERED: DESL5TAB PO (18:58)
[2021-04-06] MEDS ORDERED: METO2.5T2 PO (18:58)
[2021-04-06] MEDS ORDERED: ALBU6.7H9 INH (18:59)
[2021-04-06] MEDS ORDERED: MOME13HF3 INH (19:00)
[2021-04-06] MEDS ORDERED: CLOT15CR5 TP (19:01)
[2021-04-06] MEDS ORDERED: RIOC2.5T PO (19:02)
== END 2021-04-05 22:47 | DRG 222 ==
LOC: CVICU 11:30 → 3WST 03-31 21:59
PROVIDERS: ADMIT Family Medicine Adult Medicine; ATTEND Family Medicine Adult Medicine
PROC: B5181ZA Fluoroscopy of Superior Vena Cava using Low Osmolar Contrast, Guidance (ICD-10-PCS; 2021-03-27)
PROC: 02HV33Z Insertion of Infusion Device into Superior Vena Cava, Percutaneous Approach (ICD-10-PCS; 2021-03-27)
PROC: B548ZZA Ultrasonography of Superior Vena Cava, Guidance (ICD-10-PCS; 2021-03-27)
PROC: 5A1D70Z Performance of Urinary Filtration, Intermittent, Less than 6 Hours Per Day (ICD-10-PCS; 2021-03-27)
PROC: 0DJ08ZZ Inspection of Upper Intestinal Tract, Via Natural or Artificial Opening Endoscopic (ICD-10-PCS; 2021-03-27)
PROC: 5A1D70Z Performance of Urinary Filtration, Intermittent, Less than 6 Hours Per Day (ICD-10-PCS; 2021-03-29)
PROC: B5171ZZ Fluoroscopy of Left Subclavian Vein using Low Osmolar Contrast (ICD-10-PCS; principal; 2021-04-01)
PROC: 0JH609Z Insertion of Cardiac Resynchronization Defibrillator Pulse Generator into Chest Subcutaneous Tissue and Fascia, Open Approach (ICD-10-PCS; 2021-04-01)
PROC: 02HL3KZ Insertion of Defibrillator Lead into Left Ventricle, Percutaneous Approach (ICD-10-PCS; 2021-04-01)
PROC: 4A023N6 Measurement of Cardiac Sampling and Pressure, Right Heart, Percutaneous Approach (ICD-10-PCS; 2021-04-01)
PROC: 02HK3KZ Insertion of Defibrillator Lead into Right Ventricle, Percutaneous Approach (ICD-10-PCS; 2021-04-01)
PROC: 02H63KZ Insertion of Defibrillator Lead into Right Atrium, Percutaneous Approach (ICD-10-PCS; 2021-04-01)
DX: I13.0 Hypertensive heart and chronic kidney disease with heart failure and stage 1 through stage 4 chronic kidney disease, or unspecified chronic kidney disease (principal); I50.23 Acute on chronic systolic (congestive) heart failure; K92.2 Gastrointestinal hemorrhage, unspecified; N17.9 Acute kidney failure, unspecified; E87.1 Hypo-osmolality and hyponatremia; G82.20 Paraplegia, unspecified; I82.503 Chronic embolism and thrombosis of unspecified deep veins of lower extremity, bilateral; L03.115 Cellulitis of right lower limb; I47.2 Ventricular tachycardia; L03.116 Cellulitis of left lower limb; L97.909 Non-pressure chronic ulcer of unspecified part of unspecified lower leg with unspecified severity; I48.21 Permanent atrial fibrillation; J96.10 Chronic respiratory failure, unspecified whether with hypoxia or hypercapnia; I49.5 Sick sinus syndrome; D50.9 Iron deficiency anemia, unspecified; E11.22 Type 2 diabetes mellitus with diabetic chronic kidney disease; E11.36 Type 2 diabetes mellitus with diabetic cataract; E11.40 Type 2 diabetes mellitus with diabetic neuropathy, unspecified; E66.01 Morbid (severe) obesity due to excess calories; E78.00 Pure hypercholesterolemia, unspecified; E78.5 Hyperlipidemia, unspecified; E87.8 Other disorders of electrolyte and fluid balance, not elsewhere classified; I25.10 Atherosclerotic heart disease of native coronary artery without angina pectoris; I25.2 Old myocardial infarction; I27.29 Other secondary pulmonary hypertension; I27.81 Cor pulmonale (chronic); J44.9 Chronic obstructive pulmonary disease, unspecified; K21.9 Gastro-esophageal reflux disease without esophagitis; K31.7 Polyp of stomach and duodenum; K76.0 Fatty (change of) liver, not elsewhere classified; L30.9 Dermatitis, unspecified; M47.9 Spondylosis, unspecified; M85.80 Other specified disorders of bone density and structure, unspecified site; I49.3 Ventricular premature depolarization; B36.9 Superficial mycosis, unspecified; E83.39 Other disorders of phosphorus metabolism; E83.42 Hypomagnesemia; E87.6 Hypokalemia; G47.30 Sleep apnea, unspecified; I25.5 Ischemic cardiomyopathy; I87.2 Venous insufficiency (chronic) (peripheral); I87.8 Other specified disorders of veins; I95.89 Other hypotension; K59.00 Constipation, unspecified; K64.9 Unspecified hemorrhoids; N18.1 Chronic kidney disease, stage 1; Z20.822 Contact with and (suspected) exposure to COVID-19; Z95.810 Presence of automatic (implantable) cardiac defibrillator; M19.90 Unspecified osteoarthritis, unspecified site; Z53.8 Procedure and treatment not carried out for other reasons; R26.9 Unspecified abnormalities of gait and mobility; Z79.01 Long term (current) use of anticoagulants; Z79.4 Long term (current) use of insulin; Z86.711 Personal history of pulmonary embolism; Z87.891 Personal history of nicotine dependence; Z90.710 Acquired absence of both cervix and uterus; Z95.5 Presence of coronary angioplasty implant and graft; Z99.81 Dependence on supplemental oxygen; Z88.8 Allergy status to other drugs, medicaments and biological substances; Z68.38 Body mass index [BMI] 38.0-38.9, adult
CPT/HCPCS: 33225; 33249; 36415; 36600; 71045; 75820; 76700; 76937; 80048; 80053; 80202; 81003; 82105; 82375; 82378; 82607; 82728; 82805; 82962; 83036; 83540; 83550; 83735; 84100; 84484; 85014; 85018; 85025; 85027; 85044; 86301; 86705; 86709; 86803; 87340; 87426; 93005; 93451; 93640; 93923; 93970; 93971; 94640; 97022; 97110; 97163; 97164; 97166; 97530; 97535; A4565; A6261; C1752; C1769; C1882; C1887; C1893; C1899; C1900; C9113; J1100; J1265; J1580; J1644; J1815; J2250; J2370; J2405; J2543; J2704; J3010; J3370; J3475; J3480; J3490; J7030; J7060; Q9967; A4315

== ENCOUNTER 2021-04-05 22:30 | Inpatient (IN) | payer BC, MEDICARE ==
[~2021-04-05] VITALS: Ht 167.6 cm; Wt 93.0 kg
[2021-04-05 22:30] VITALS: BP 99/57
[~2021-04-05 22:30] MED LIST changes: +GABA-529 PO
[2021-04-05] MEDS ORDERED: ACETAMINOPHEN 325MG TABLET PO PRN (23:30)
[2021-04-05] MEDS ORDERED: DEXTROSE 50% WATER 50ML SYRINGE IV PRN (23:30)
[2021-04-05] MEDS ORDERED: ONDANSETRON 4MG ODT PO PRN (23:30)
[2021-04-06] MEDS: IPRATROPIUM/ALBUTEROL 0.5-3(2.5)MG/3ML NEB HHN SCH ×4 (01:44→21:29)
[2021-04-06] MEDS: BLOOD SUGAR DIAGNOSTIC STRIP TEST SCH ×4 (06:09→21:00)
[2021-04-06] MEDS: MIDODRINE HCL 5MG TABLET PO SCH ×3 (06:13→22:04)
[2021-04-06 06:27] LABS: BASOPHILS % 0.8 % (0.0-2.0); EOSINOPHILS % 3.6 % (0.0-5.0); HEMATOCRIT. 31.8 % (36.0-48.0); LYMPHOCYTES % 17.5 % (20.0-50.0); MEAN CORPUSCULAR HEMOGLOBIN 28.5 pg (28.0-32.0); MEAN CORPUSCULAR VOLUME 90.4 fL (81.0-99.0); MEAN PLATELET VOLUME 8.8 fl (7.4-10.4); MONOCYTES % 7.4 % (2.0-8.0); NEUTROPHILS % 70.7 % (40.0-76.0); PLATELET 238 x1000/uL (130-400); RED BLOOD CELL COUNT 3.52 mill/uL (4.2-5.4); RED CELL DISTRIBUTION WIDTH 19.3 % (11.6-14.6)
[2021-04-06 06:37] LABS: CHLORIDE 108 mEq/L (98-107)
[2021-04-06 07:48] VITALS: BP_SYST 118; BP_SYST 119; BP_DIAS 72; BP_DIAS 74
[2021-04-06] MEDS: GABAPENTIN 100MG CAPSULE PO SCH ×3 (08:40→16:41)
[2021-04-06] MEDS: DOCUSATE SODIUM 100MG CAPSULE PO SCH ×2 (08:40→08:56)
[2021-04-06] MEDS: MULTIVITAMINS,THER W-MINERALS TABLET PO SCH (08:40)
[2021-04-06] MEDS: POLYETHYLENE GLYCOL 3350 (17GM) 1 DOSE PACK PO SCH ×2 (08:41→08:56)
[2021-04-06] MEDS: PANTOPRAZOLE 40MG DR TABLET PO SCH ×2 (08:41→16:41)
[2021-04-06] MEDS: ASPIRIN 81MG TABLET PO SCH (08:41)
[2021-04-06] MEDS: APIXABAN 2.5 MG TABLET PO SCH ×2 (08:41→16:41)
[2021-04-06] MEDS: MAGNESIUM OXIDE 400MG TABLET PO SCH (08:43)
[2021-04-06] MEDS: INSULIN LISPRO 100 UNITS/ML SUBCUT SCH ×4 (08:46→22:06)
[2021-04-06] MEDS: NYSTATIN/TRIAMCIN CREAM 15GM TOP SCH ×3 (08:46→16:51)
[2021-04-06 12:46] VITALS: BP 108/78
[2021-04-06] MEDS: ERGOCALCIFEROL 50000UNITS CAPSULE PO SCH (13:15)
[2021-04-06] MEDS ORDERED: GABA-529 PO (18:51)
[2021-04-06] MEDS ORDERED: FURO40TA5 PO (18:51)
[2021-04-06] MEDS ORDERED: INSU100I28 SQ (18:52)
[2021-04-06] MEDS ORDERED: GLYB5TAB7 PO (18:56)
[2021-04-06] MEDS ORDERED: BLOO-158 HHN (18:57)
[2021-04-06] MEDS ORDERED: METO2.5T2 PO (18:58)
[2021-04-06] MEDS ORDERED: DESL5TAB PO (18:58)
[2021-04-06] MEDS ORDERED: ALBU6.7H9 INH (18:59)
[2021-04-06] MEDS ORDERED: MOME13HF3 INH (19:00)
[2021-04-06] MEDS ORDERED: CLOT15CR5 TP (19:01)
[2021-04-06] MEDS ORDERED: RIOC2.5T PO (19:02)
[2021-04-06 20:00] VITALS: BP 120/66
[2021-04-07] MEDS: IPRATROPIUM/ALBUTEROL 0.5-3(2.5)MG/3ML NEB HHN SCH ×2 (02:10→13:59)
[2021-04-07] MEDS: INSULIN LISPRO 100 UNITS/ML SUBCUT SCH ×4 (06:28→22:16)
[2021-04-07] MEDS: MIDODRINE HCL 5MG TABLET PO SCH ×3 (06:28→22:07)
[2021-04-07] MEDS: BLOOD SUGAR DIAGNOSTIC STRIP TEST SCH ×4 (06:28→21:55)
[2021-04-07 07:49] VITALS: BP 116/62
[2021-04-07] MEDS: POLYETHYLENE GLYCOL 3350 (17GM) 1 DOSE PACK PO SCH (09:00)
[2021-04-07] MEDS: DOCUSATE SODIUM 100MG CAPSULE PO SCH (09:00)
[2021-04-07] MEDS: PANTOPRAZOLE 40MG DR TABLET PO SCH ×2 (09:08→17:20)
[2021-04-07] MEDS: ASPIRIN 81MG TABLET PO SCH (09:08)
[2021-04-07] MEDS: MULTIVITAMINS,THER W-MINERALS TABLET PO SCH (09:08)
[2021-04-07] MEDS: APIXABAN 2.5 MG TABLET PO SCH ×2 (09:09→17:20)
[2021-04-07] MEDS: GABAPENTIN 100MG CAPSULE PO SCH ×3 (09:09→17:20)
[2021-04-07] MEDS: NYSTATIN/TRIAMCIN CREAM 15GM TOP SCH ×3 (09:09→17:24)
[2021-04-07] MEDS: MAGNESIUM OXIDE 400MG TABLET PO SCH (09:09)
[2021-04-07 12:29] VITALS: BP 113/78
[2021-04-07 20:00] VITALS: BP 125/55
[2021-04-08] MEDS: BLOOD SUGAR DIAGNOSTIC STRIP TEST SCH ×4 (05:53→21:09)
[2021-04-08] MEDS: MIDODRINE HCL 5MG TABLET PO SCH ×3 (06:00→21:09)
[2021-04-08] MEDS: INSULIN LISPRO 100 UNITS/ML SUBCUT SCH ×4 (06:06→21:26)
[2021-04-08 08:27] VITALS: BP 128/63
[2021-04-08] MEDS: IPRATROPIUM/ALBUTEROL 0.5-3(2.5)MG/3ML NEB HHN SCH ×3 (08:41→19:50)
[2021-04-08] MEDS: MAGNESIUM OXIDE 400MG TABLET PO SCH (11:42)
[2021-04-08] MEDS: ASPIRIN 81MG TABLET PO SCH (11:42)
[2021-04-08] MEDS: DOCUSATE SODIUM 100MG CAPSULE PO SCH (11:42)
[2021-04-08] MEDS: PANTOPRAZOLE 40MG DR TABLET PO SCH ×2 (11:43→18:05)
[2021-04-08] MEDS: POLYETHYLENE GLYCOL 3350 (17GM) 1 DOSE PACK PO SCH (11:43)
[2021-04-08] MEDS: GABAPENTIN 100MG CAPSULE PO SCH ×3 (11:43→18:05)
[2021-04-08] MEDS: NYSTATIN/TRIAMCIN CREAM 15GM TOP SCH ×3 (11:44→18:25)
[2021-04-08] MEDS: MULTIVITAMINS,THER W-MINERALS TABLET PO SCH (11:44)
[2021-04-08] MEDS: APIXABAN 2.5 MG TABLET PO SCH ×2 (11:46→18:05)
[2021-04-08 17:00] LABS: BASOPHILS % 0.9 % (0.0-2.0); EOSINOPHILS % 2.8 % (0.0-5.0); HEMATOCRIT. 27.2 % (36.0-48.0); LYMPHOCYTES % 16.1 % (20.0-50.0); MEAN CORPUSCULAR HEMOGLOBIN 29.7 pg (28.0-32.0); MEAN CORPUSCULAR VOLUME 89.8 fL (81.0-99.0); MEAN PLATELET VOLUME 8.8 fl (7.4-10.4); MONOCYTES % 10.3 % (2.0-8.0); NEUTROPHILS % 69.9 % (40.0-76.0); PLATELET 229 x1000/uL (130-400); RED BLOOD CELL COUNT 3.03 mill/uL (4.2-5.4); RED CELL DISTRIBUTION WIDTH 19.6 % (11.6-14.6)
[2021-04-08 20:00] VITALS: BP 116/68
[2021-04-09] MEDS: IPRATROPIUM/ALBUTEROL 0.5-3(2.5)MG/3ML NEB HHN SCH ×4 (02:05→19:55)
[2021-04-09] MEDS: MIDODRINE HCL 5MG TABLET PO SCH ×3 (06:01→21:23)
[2021-04-09] MEDS: BLOOD SUGAR DIAGNOSTIC STRIP TEST SCH ×4 (06:01→21:24)
[2021-04-09] MEDS: INSULIN LISPRO 100 UNITS/ML SUBCUT SCH ×4 (06:03→21:27)
[2021-04-09 06:48] LABS: BASOPHILS % 0.9 % (0.0-2.0); EOSINOPHILS % 4.6 % (0.0-5.0); HEMATOCRIT. 29.1 % (36.0-48.0); HEMOGLOBIN. 9.5 g/dL (12.0-16.0); LYMPHOCYTES % 23.8 % (20.0-50.0); MEAN CORPUSCULAR HEMOGLOBIN 29.3 pg (28.0-32.0); MEAN PLATELET VOLUME 9.1 fl (7.4-10.4); MONOCYTES % 10.7 % (2.0-8.0); PLATELET 231 x1000/uL (130-400); RED BLOOD CELL COUNT 3.23 mill/uL (4.2-5.4); RED CELL DISTRIBUTION WIDTH 19.9 % (11.6-14.6)
[2021-04-09 08:25] VITALS: BP 117/72
[2021-04-09] MEDS: NYSTATIN/TRIAMCIN CREAM 15GM TOP SCH ×3 (09:10→17:11)
[2021-04-09] MEDS: DOCUSATE SODIUM 100MG CAPSULE PO SCH (09:19)
[2021-04-09] MEDS: ASPIRIN 81MG TABLET PO SCH (09:19)
[2021-04-09] MEDS: APIXABAN 2.5 MG TABLET PO SCH ×2 (09:20→17:10)
[2021-04-09] MEDS: POLYETHYLENE GLYCOL 3350 (17GM) 1 DOSE PACK PO SCH (09:21)
[2021-04-09] MEDS: GABAPENTIN 100MG CAPSULE PO SCH ×3 (09:21→17:10)
[2021-04-09] MEDS: MAGNESIUM OXIDE 400MG TABLET PO SCH (09:21)
[2021-04-09] MEDS: PANTOPRAZOLE 40MG DR TABLET PO SCH ×2 (09:22→17:11)
[2021-04-09] MEDS: MULTIVITAMINS,THER W-MINERALS TABLET PO SCH (09:22)
[2021-04-09] MEDS ORDERED: LIDOCAINE HCL/PF 1% 2ML VIAL ONE (10:28)
[2021-04-09] MEDS ORDERED: METHYLPREDNISOLONE SOD SUCC 40 MG/ML VIAL IV SCH (10:30)
[2021-04-09 12:55] LABS: BG BASE EXCESS -2.9 mmol/L (-2.0-2.0); BG CARBOXYHEMOGLOBIN 0.4 % (0.5-1.5); BG DEOXYHEMOGLOBIN 2.2 % (0.0-5.0); BG HCO3 ACT 21.4 mmol/L (22.0-26.0); BG METHEMOGLOBIN 0.2 % (0.0-1.5); BG OXYGEN SATURATION 97.8 % (92.0-98.5); BG OXYHEMOGLOBIN 97.2 % (94.0-97.0); BG PCO2 35.6 mmHg (35.0-45.0); BG PH 7.397 (7.350-7.450); BG PO2 105.4 mmHg (75.0-100.0); BG SAMPLE SITE RIGHT BRACHIAL; BG TOTAL HEMOGLOBIN 11.1 g/dL (12.0-18.0); BG VENT MODE NASAL CANNULA
[2021-04-09] MEDS ORDERED: FUROSEMIDE 40MG TABLET PO NR (18:15)
[2021-04-09] MEDS: PREDNISONE 20MG TABLET PO SCH (18:40)
[2021-04-09 19:34] VITALS: BP 113/82
[2021-04-10] MEDS: MIDODRINE HCL 5MG TABLET PO SCH ×2 (06:00→21:09)
[2021-04-10] MEDS: BLOOD SUGAR DIAGNOSTIC STRIP TEST SCH ×4 (06:15→21:07)
[2021-04-10] MEDS: INSULIN LISPRO 100 UNITS/ML SUBCUT SCH ×4 (06:31→22:22)
[2021-04-10] MEDS: NYSTATIN/TRIAMCIN CREAM 15GM TOP SCH ×3 (08:09→18:13)
[2021-04-10 08:18] VITALS: BP 123/65
[2021-04-10] MEDS: IPRATROPIUM/ALBUTEROL 0.5-3(2.5)MG/3ML NEB HHN SCH (09:37)
[2021-04-10] MEDS: MAGNESIUM OXIDE 400MG TABLET PO SCH (09:55)
[2021-04-10] MEDS: APIXABAN 2.5 MG TABLET PO SCH ×2 (09:55→17:28)
[2021-04-10] MEDS: ASPIRIN 81MG TABLET PO SCH (09:55)
[2021-04-10] MEDS: DOCUSATE SODIUM 100MG CAPSULE PO SCH (09:55)
[2021-04-10] MEDS: PREDNISONE 20MG TABLET PO SCH (09:56)
[2021-04-10] MEDS: MULTIVITAMINS,THER W-MINERALS TABLET PO SCH (09:56)
[2021-04-10] MEDS: PANTOPRAZOLE 40MG DR TABLET PO SCH ×2 (09:56→17:29)
[2021-04-10] MEDS: GABAPENTIN 100MG CAPSULE PO SCH ×3 (09:56→17:28)
[2021-04-10] MEDS: POLYETHYLENE GLYCOL 3350 (17GM) 1 DOSE PACK PO SCH (09:56)
[2021-04-10] MEDS ORDERED: IPRATROPIUM BROMIDE (0.02%) 0.5MG/2.5ML NEB HHN SCH (12:00)
[2021-04-10] MEDS: SPIRONOLACTONE 25MG TABLET PO SCH (15:18)
[2021-04-10] MEDS: IPRATROPIUM BROMIDE (0.02%) 0.5MG/2.5ML NEB HHN SCH ×2 (16:16→21:07)
[2021-04-10 20:00] VITALS: BP 124/54
[2021-04-10] MEDS: BUDESONIDE 0.5MG/2ML NEB HHN SCH (21:07)
[2021-04-10] MEDS: DILTIAZEM HCL 30MG TABLET PO SCH (21:08)
[2021-04-10] MEDS: INSULIN GLARGINE UD 100 UNITS/ML SYR SUBCUT SCH (22:21)
[2021-04-11] MEDS: IPRATROPIUM BROMIDE (0.02%) 0.5MG/2.5ML NEB HHN SCH ×5 (00:42→21:21)
[2021-04-11] MEDS: MIDODRINE HCL 5MG TABLET PO SCH ×3 (05:17→22:00)
[2021-04-11] MEDS: DILTIAZEM HCL 30MG TABLET PO SCH ×3 (05:18→22:16)
[2021-04-11] MEDS: BLOOD SUGAR DIAGNOSTIC STRIP TEST SCH ×4 (05:19→21:00)
[2021-04-11] MEDS: INSULIN LISPRO 100 UNITS/ML SUBCUT SCH ×4 (06:20→21:00)
[2021-04-11 07:02] LABS: BASOPHILS % 0.1 % (0.0-2.0); EOSINOPHILS % 0.1 % (0.0-5.0); HEMATOCRIT. 28.7 % (36.0-48.0); HEMOGLOBIN. 9.2 g/dL (12.0-16.0); LYMPHOCYTES % 11.1 % (20.0-50.0); MEAN CORPUSCULAR HEMOGLOBIN 29.6 pg (28.0-32.0); MEAN CORPUSCULAR VOLUME 92.1 fL (81.0-99.0); MEAN PLATELET VOLUME 9.1 fl (7.4-10.4); MONOCYTES % 6.7 % (2.0-8.0); PLATELET 264 x1000/uL (130-400); RED BLOOD CELL COUNT 3.12 mill/uL (4.2-5.4); RED CELL DISTRIBUTION WIDTH 20.6 % (11.6-14.6)
[2021-04-11] MEDS: BUDESONIDE 0.5MG/2ML NEB HHN SCH ×2 (07:15→21:18)
[2021-04-11 07:31] VITALS: BP 110/68
[2021-04-11] MEDS: GABAPENTIN 100MG CAPSULE PO SCH ×3 (08:40→16:08)
[2021-04-11] MEDS: APIXABAN 2.5 MG TABLET PO SCH ×2 (08:40→16:08)
[2021-04-11] MEDS: ASPIRIN 81MG TABLET PO SCH (08:40)
[2021-04-11] MEDS: PANTOPRAZOLE 40MG DR TABLET PO SCH ×2 (08:40→16:08)
[2021-04-11] MEDS: MULTIVITAMINS,THER W-MINERALS TABLET PO SCH (08:40)
[2021-04-11] MEDS: DOCUSATE SODIUM 100MG CAPSULE PO SCH (08:40)
[2021-04-11] MEDS: SPIRONOLACTONE 25MG TABLET PO SCH (08:41)
[2021-04-11] MEDS: MAGNESIUM OXIDE 400MG TABLET PO SCH (08:41)
[2021-04-11] MEDS: NYSTATIN/TRIAMCIN CREAM 15GM TOP SCH ×3 (08:42→16:08)
[2021-04-11] MEDS: POLYETHYLENE GLYCOL 3350 (17GM) 1 DOSE PACK PO SCH (08:54)
[2021-04-11] MEDS: INSULIN GLARGINE UD 100 UNITS/ML SYR SUBCUT SCH ×2 (10:01→22:27)
[2021-04-11 13:41] VITALS: BP 118/73
[2021-04-11] MEDS: THROAT LOZENGES-BENZOCAINE/MENTH/CETYLPYRD CL LOZENGES MM PRN ×2 (17:14→22:17)
[2021-04-11 20:00] VITALS: BP 121/74
[2021-04-12] MEDS: IPRATROPIUM BROMIDE (0.02%) 0.5MG/2.5ML NEB HHN SCH ×6 (04:32→21:21)
[2021-04-12] MEDS: BLOOD SUGAR DIAGNOSTIC STRIP TEST SCH ×4 (05:37→21:41)
[2021-04-12] MEDS: DILTIAZEM HCL 30MG TABLET PO SCH ×3 (06:00→21:44)
[2021-04-12] MEDS: MIDODRINE HCL 5MG TABLET PO SCH ×3 (06:07→21:43)
[2021-04-12 07:44] VITALS: BP 106/59
[2021-04-12] MEDS: POLYETHYLENE GLYCOL 3350 (17GM) 1 DOSE PACK PO SCH (08:39)
[2021-04-12] MEDS: NYSTATIN/TRIAMCIN CREAM 15GM TOP SCH ×3 (08:44→17:37)
[2021-04-12] MEDS: MULTIVITAMINS,THER W-MINERALS TABLET PO SCH (08:44)
[2021-04-12] MEDS: DOCUSATE SODIUM 100MG CAPSULE PO SCH (08:45)
[2021-04-12] MEDS: GUAIFENESIN 600MG ER TABLET PO SCH ×2 (08:45→21:42)
[2021-04-12] MEDS: GABAPENTIN 100MG CAPSULE PO SCH ×3 (08:45→17:37)
[2021-04-12] MEDS: ASPIRIN 81MG TABLET PO SCH (08:45)
[2021-04-12] MEDS: MAGNESIUM OXIDE 400MG TABLET PO SCH (08:46)
[2021-04-12] MEDS: APIXABAN 2.5 MG TABLET PO SCH ×2 (08:46→17:35)
[2021-04-12] MEDS: PANTOPRAZOLE 40MG DR TABLET PO SCH ×2 (08:46→17:35)
[2021-04-12] MEDS: SPIRONOLACTONE 25MG TABLET PO SCH (08:49)
[2021-04-12] MEDS: BUDESONIDE 0.5MG/2ML NEB HHN SCH ×2 (08:51→21:21)
[2021-04-12] MEDS: INSULIN LISPRO 100 UNITS/ML SUBCUT SCH ×4 (09:00→21:00)
[2021-04-12] MEDS: INSULIN GLARGINE UD 100 UNITS/ML SYR SUBCUT SCH ×2 (10:20→21:49)
[2021-04-12] MEDS: THROAT LOZENGES-BENZOCAINE/MENTH/CETYLPYRD CL LOZENGES MM PRN (14:49)
[2021-04-12 15:57] VITALS: BP 121/63
[2021-04-12 16:00] LABS: BASOPHILS % 0.8 % (0.0-2.0); EOSINOPHILS % 3.1 % (0.0-5.0); HEMATOCRIT. 28.4 % (36.0-48.0); HEMOGLOBIN. 9.4 g/dL (12.0-16.0); LYMPHOCYTES % 16.5 % (20.0-50.0); MEAN CORPUSCULAR HEMOGLOBIN 30.4 pg (28.0-32.0); MEAN CORPUSCULAR VOLUME 91.5 fL (81.0-99.0); MEAN PLATELET VOLUME 8.9 fl (7.4-10.4); MONOCYTES % 8.5 % (2.0-8.0); NEUTROPHILS % 71.1 % (40.0-76.0); PLATELET 235 x1000/uL (130-400); RED CELL DISTRIBUTION WIDTH 20.3 % (11.6-14.6)
[2021-04-12 16:31] LABS: CHLORIDE 108 mEq/L (98-107)
[2021-04-12 20:15] VITALS: BP 172/50
[2021-04-13] MEDS: IPRATROPIUM BROMIDE (0.02%) 0.5MG/2.5ML NEB HHN SCH ×4 (01:04→20:00)
[2021-04-13] MEDS: DILTIAZEM HCL 30MG TABLET PO SCH ×3 (06:00→21:42)
[2021-04-13] MEDS: MIDODRINE HCL 5MG TABLET PO SCH ×3 (06:06→21:42)
[2021-04-13] MEDS: LEVOTHYROXINE SODIUM 50MCG TABLET PO SCH (06:10)
[2021-04-13] MEDS: BLOOD SUGAR DIAGNOSTIC STRIP TEST SCH ×4 (06:17→21:42)
[2021-04-13 07:33] LABS: EOSINOPHILS % 3.5 % (0.0-5.0); HEMATOCRIT. 28.5 % (36.0-48.0); HEMOGLOBIN. 9.2 g/dL (12.0-16.0); LYMPHOCYTES % 18.8 % (20.0-50.0); MEAN CORPUSCULAR HEMOGLOBIN 29.4 pg (28.0-32.0); MEAN CORPUSCULAR VOLUME 90.5 fL (81.0-99.0); MEAN PLATELET VOLUME 8.9 fl (7.4-10.4); MONOCYTES % 8.3 % (2.0-8.0); NEUTROPHILS % 68.4 % (40.0-76.0); PLATELET 245 x1000/uL (130-400); RED BLOOD CELL COUNT 3.14 mill/uL (4.2-5.4); RED CELL DISTRIBUTION WIDTH 20.9 % (11.6-14.6)
[2021-04-13 08:30] VITALS: BP 103/62
[2021-04-13] MEDS: POLYETHYLENE GLYCOL 3350 (17GM) 1 DOSE PACK PO SCH (09:00)
[2021-04-13] MEDS: INSULIN LISPRO 100 UNITS/ML SUBCUT SCH ×4 (09:00→21:00)
[2021-04-13] MEDS: ASPIRIN 81MG TABLET PO SCH (09:18)
[2021-04-13] MEDS: NYSTATIN/TRIAMCIN CREAM 15GM TOP SCH ×3 (09:18→17:36)
[2021-04-13] MEDS: SPIRONOLACTONE 25MG TABLET PO SCH (09:18)
[2021-04-13] MEDS: GABAPENTIN 100MG CAPSULE PO SCH ×3 (09:18→17:35)
[2021-04-13] MEDS: APIXABAN 2.5 MG TABLET PO SCH ×2 (09:18→17:35)
[2021-04-13] MEDS: MAGNESIUM OXIDE 400MG TABLET PO SCH (09:18)
[2021-04-13] MEDS: GUAIFENESIN 600MG ER TABLET PO SCH ×2 (09:19→21:40)
[2021-04-13] MEDS: ERGOCALCIFEROL 50000UNITS CAPSULE PO SCH (09:19)
[2021-04-13] MEDS: PANTOPRAZOLE 40MG DR TABLET PO SCH ×2 (09:19→17:35)
[2021-04-13] MEDS: MULTIVITAMINS,THER W-MINERALS TABLET PO SCH (10:18)
[2021-04-13] MEDS: INSULIN GLARGINE UD 100 UNITS/ML SYR SUBCUT SCH ×2 (10:20→21:48)
[2021-04-13] MEDS: DOCUSATE SODIUM 100MG CAPSULE PO SCH (10:52)
[2021-04-13] MEDS: BUDESONIDE 0.5MG/2ML NEB HHN SCH ×2 (16:55→18:00)
[2021-04-13 20:00] VITALS: BP 111/66
[2021-04-14] MEDS: IPRATROPIUM BROMIDE (0.02%) 0.5MG/2.5ML NEB HHN SCH ×4 (01:12→21:56)
[2021-04-14] MEDS: THROAT LOZENGES-BENZOCAINE/MENTH/CETYLPYRD CL LOZENGES MM PRN ×2 (01:20→21:06)
[2021-04-14] MEDS: MIDODRINE HCL 5MG TABLET PO SCH ×3 (06:00→21:20)
[2021-04-14] MEDS: BLOOD SUGAR DIAGNOSTIC STRIP TEST SCH ×4 (06:23→21:11)
[2021-04-14] MEDS: INSULIN LISPRO 100 UNITS/ML SUBCUT SCH ×4 (06:24→21:00)
[2021-04-14] MEDS: LEVOTHYROXINE SODIUM 50MCG TABLET PO SCH (06:46)
[2021-04-14] MEDS: DILTIAZEM HCL 30MG TABLET PO SCH ×2 (06:46→14:06)
[2021-04-14] MEDS ORDERED: BENAZEPRIL 5MG TABLET PO PRN (07:45)
[2021-04-14] MEDS ORDERED: DIPHENHYDRAMINE 25MG CAPSULE PO PRN (08:00)
[2021-04-14 08:13] VITALS: BP 113/63
[2021-04-14] MEDS: POLYETHYLENE GLYCOL 3350 (17GM) 1 DOSE PACK PO SCH (09:00)
[2021-04-14] MEDS: GUAIFENESIN 600MG ER TABLET PO SCH ×2 (09:41→21:05)
[2021-04-14] MEDS: DOCUSATE SODIUM 100MG CAPSULE PO SCH (09:41)
[2021-04-14] MEDS: GABAPENTIN 100MG CAPSULE PO SCH ×3 (09:41→17:30)
[2021-04-14] MEDS: ASPIRIN 81MG TABLET PO SCH (09:41)
[2021-04-14] MEDS: MULTIVITAMINS,THER W-MINERALS TABLET PO SCH (09:42)
[2021-04-14] MEDS: PANTOPRAZOLE 40MG DR TABLET PO SCH ×2 (09:42→17:30)
[2021-04-14] MEDS: SPIRONOLACTONE 25MG TABLET PO SCH (09:42)
[2021-04-14] MEDS: MAGNESIUM OXIDE 400MG TABLET PO SCH (09:42)
[2021-04-14] MEDS: APIXABAN 2.5 MG TABLET PO SCH ×2 (09:42→17:30)
[2021-04-14] MEDS: NYSTATIN/TRIAMCIN CREAM 15GM TOP SCH ×3 (09:48→17:30)
[2021-04-14] MEDS: INSULIN GLARGINE UD 100 UNITS/ML SYR SUBCUT SCH ×2 (10:57→21:15)
[2021-04-14] MEDS: FUROSEMIDE 40MG/4ML VIAL IVP SCH (16:15)
[2021-04-14 17:37] LABS: EOSINOPHILS % 3.4 % (0.0-5.0); HEMATOCRIT. 30.1 % (36.0-48.0); HEMOGLOBIN. 9.7 g/dL (12.0-16.0); LYMPHOCYTES % 16.2 % (20.0-50.0); MEAN CORPUSCULAR HEMOGLOBIN 29.7 pg (28.0-32.0); MEAN PLATELET VOLUME 9.2 fl (7.4-10.4); MONOCYTES % 6.7 % (2.0-8.0); NEUTROPHILS % 72.7 % (40.0-76.0); PLATELET 232 x1000/uL (130-400); RED BLOOD CELL COUNT 3.27 mill/uL (4.2-5.4); RED CELL DISTRIBUTION WIDTH 20.8 % (11.6-14.6)
[2021-04-14 17:40] LABS: CHLORIDE 109 mEq/L (98-107)
[2021-04-14 20:00] VITALS: BP 104/53
[2021-04-14] MEDS: DILTIAZEM HCL 60MG TABLET PO SCH (21:19)
[2021-04-15] MEDS: IPRATROPIUM BROMIDE (0.02%) 0.5MG/2.5ML NEB HHN SCH ×6 (01:23→20:00)
[2021-04-15] MEDS: ACETYLCYSTEINE 100MG/ML 10% VIAL 4ML INH SCH ×3 (01:24→16:32)
[2021-04-15] MEDS: BLOOD SUGAR DIAGNOSTIC STRIP TEST SCH ×4 (05:47→20:54)
[2021-04-15 05:57] LABS: BASOPHILS % 0.9 % (0.0-2.0); EOSINOPHILS % 3.9 % (0.0-5.0); HEMOGLOBIN. 9.8 g/dL (12.0-16.0); LYMPHOCYTES % 15.3 % (20.0-50.0); MEAN CORPUSCULAR HEMOGLOBIN 29.1 pg (28.0-32.0); MEAN CORPUSCULAR VOLUME 92.1 fL (81.0-99.0); MEAN PLATELET VOLUME 8.8 fl (7.4-10.4); MONOCYTES % 6.8 % (2.0-8.0); NEUTROPHILS % 73.1 % (40.0-76.0); PLATELET 227 x1000/uL (130-400); RED BLOOD CELL COUNT 3.36 mill/uL (4.2-5.4); RED CELL DISTRIBUTION WIDTH 20.8 % (11.6-14.6)
[2021-04-15] MEDS: MIDODRINE HCL 5MG TABLET PO SCH ×3 (05:58→21:28)
[2021-04-15] MEDS: LEVOTHYROXINE SODIUM 50MCG TABLET PO SCH (05:58)
[2021-04-15] MEDS: DILTIAZEM HCL 60MG TABLET PO SCH ×3 (05:58→21:24)
[2021-04-15 08:00] VITALS: BP 138/60
[2021-04-15] MEDS: MULTIVITAMINS,THER W-MINERALS TABLET PO SCH (08:17)
[2021-04-15] MEDS: GABAPENTIN 100MG CAPSULE PO SCH ×3 (08:17→17:21)
[2021-04-15] MEDS: GUAIFENESIN 600MG ER TABLET PO SCH ×2 (08:17→20:52)
[2021-04-15] MEDS: ASPIRIN 81MG TABLET PO SCH (08:17)
[2021-04-15] MEDS: DOCUSATE SODIUM 100MG CAPSULE PO SCH (08:17)
[2021-04-15] MEDS: MAGNESIUM OXIDE 400MG TABLET PO SCH (08:18)
[2021-04-15] MEDS: APIXABAN 2.5 MG TABLET PO SCH ×2 (08:18→17:21)
[2021-04-15] MEDS: POLYETHYLENE GLYCOL 3350 (17GM) 1 DOSE PACK PO SCH (08:18)
[2021-04-15] MEDS: SPIRONOLACTONE 25MG TABLET PO SCH (08:18)
[2021-04-15] MEDS: PANTOPRAZOLE 40MG DR TABLET PO SCH ×2 (08:18→17:21)
[2021-04-15] MEDS: NYSTATIN/TRIAMCIN CREAM 15GM TOP SCH ×3 (08:20→17:00)
[2021-04-15] MEDS: INSULIN LISPRO 100 UNITS/ML SUBCUT SCH ×4 (08:21→20:53)
[2021-04-15] MEDS: FUROSEMIDE 40MG/4ML VIAL IVP SCH (08:36)
[2021-04-15] MEDS: INSULIN GLARGINE UD 100 UNITS/ML SYR SUBCUT SCH ×2 (09:34→21:33)
[2021-04-15 20:00] VITALS: BP 126/76
[2021-04-16] MEDS: IPRATROPIUM BROMIDE (0.02%) 0.5MG/2.5ML NEB HHN SCH ×5 (02:49→21:28)
[2021-04-16] MEDS: MIDODRINE HCL 5MG TABLET PO SCH ×3 (05:59→21:41)
[2021-04-16] MEDS: LEVOTHYROXINE SODIUM 50MCG TABLET PO SCH (05:59)
[2021-04-16] MEDS: DILTIAZEM HCL 60MG TABLET PO SCH ×3 (05:59→21:42)
[2021-04-16] MEDS: BLOOD SUGAR DIAGNOSTIC STRIP TEST SCH ×4 (06:12→21:42)
[2021-04-16] MEDS: INSULIN LISPRO 100 UNITS/ML SUBCUT SCH ×4 (06:49→21:00)
[2021-04-16 07:39] VITALS: BP 114/60
[2021-04-16] MEDS: SPIRONOLACTONE 25MG TABLET PO SCH (08:30)
[2021-04-16] MEDS: GUAIFENESIN 600MG ER TABLET PO SCH ×2 (08:30→21:42)
[2021-04-16] MEDS: PANTOPRAZOLE 40MG DR TABLET PO SCH ×2 (08:30→16:44)
[2021-04-16] MEDS: GABAPENTIN 100MG CAPSULE PO SCH ×3 (08:30→16:44)
[2021-04-16] MEDS: DOCUSATE SODIUM 100MG CAPSULE PO SCH (08:30)
[2021-04-16] MEDS: APIXABAN 2.5 MG TABLET PO SCH ×2 (08:30→16:44)
[2021-04-16] MEDS: MAGNESIUM OXIDE 400MG TABLET PO SCH (08:30)
[2021-04-16] MEDS: MULTIVITAMINS,THER W-MINERALS TABLET PO SCH (08:30)
[2021-04-16] MEDS: ASPIRIN 81MG TABLET PO SCH (08:30)
[2021-04-16] MEDS: FUROSEMIDE 40MG/4ML VIAL IVP SCH (08:31)
[2021-04-16] MEDS: POLYETHYLENE GLYCOL 3350 (17GM) 1 DOSE PACK PO SCH (08:31)
[2021-04-16] MEDS: NYSTATIN/TRIAMCIN CREAM 15GM TOP SCH ×3 (08:32→16:45)
[2021-04-16] MEDS: INSULIN GLARGINE UD 100 UNITS/ML SYR SUBCUT SCH ×2 (09:25→22:10)
[2021-04-16 20:00] VITALS: BP 116/62
[2021-04-16] MEDS: THROAT LOZENGES-BENZOCAINE/MENTH/CETYLPYRD CL LOZENGES MM PRN (23:24)
[2021-04-17] MEDS: IPRATROPIUM BROMIDE (0.02%) 0.5MG/2.5ML NEB HHN SCH ×6 (01:12→21:11)
[2021-04-17] MEDS: BLOOD SUGAR DIAGNOSTIC STRIP TEST SCH ×4 (05:49→20:09)
[2021-04-17] MEDS: MIDODRINE HCL 5MG TABLET PO SCH ×3 (05:49→21:33)
[2021-04-17] MEDS: DILTIAZEM HCL 60MG TABLET PO SCH ×3 (05:49→21:32)
[2021-04-17] MEDS: LEVOTHYROXINE SODIUM 50MCG TABLET PO SCH (06:00)
[2021-04-17 06:49] LABS: BASOPHILS % 0.6 % (0.0-2.0); HEMATOCRIT. 29.8 % (36.0-48.0); HEMOGLOBIN. 9.4 g/dL (12.0-16.0); MEAN CORPUSCULAR HEMOGLOBIN 29.3 pg (28.0-32.0); MEAN CORPUSCULAR VOLUME 92.6 fL (81.0-99.0); MEAN PLATELET VOLUME 8.6 fl (7.4-10.4); MONOCYTES % 7.5 % (2.0-8.0); NEUTROPHILS % 76.9 % (40.0-76.0); PLATELET 242 x1000/uL (130-400); RED BLOOD CELL COUNT 3.22 mill/uL (4.2-5.4); RED CELL DISTRIBUTION WIDTH 20.6 % (11.6-14.6)
[2021-04-17 07:43] VITALS: BP 102/62
[2021-04-17] MEDS: FUROSEMIDE 40MG/4ML VIAL IVP SCH (09:00)
[2021-04-17] MEDS: INSULIN LISPRO 100 UNITS/ML SUBCUT SCH ×4 (09:00→20:09)
[2021-04-17] MEDS: POLYETHYLENE GLYCOL 3350 (17GM) 1 DOSE PACK PO SCH (09:00)
[2021-04-17] MEDS: MAGNESIUM OXIDE 400MG TABLET PO SCH ×2 (09:00→09:51)
[2021-04-17] MEDS: MULTIVITAMINS,THER W-MINERALS TABLET PO SCH (09:41)
[2021-04-17] MEDS: DOCUSATE SODIUM 100MG CAPSULE PO SCH (09:41)
[2021-04-17] MEDS: SPIRONOLACTONE 25MG TABLET PO SCH (09:42)
[2021-04-17] MEDS: GABAPENTIN 100MG CAPSULE PO SCH ×3 (09:43→16:48)
[2021-04-17] MEDS: PANTOPRAZOLE 40MG DR TABLET PO SCH ×2 (09:43→16:47)
[2021-04-17] MEDS: ASPIRIN 81MG TABLET PO SCH (09:43)
[2021-04-17] MEDS: APIXABAN 2.5 MG TABLET PO SCH ×2 (09:43→16:48)
[2021-04-17] MEDS: NYSTATIN/TRIAMCIN CREAM 15GM TOP SCH ×3 (09:43→16:48)
[2021-04-17] MEDS: GUAIFENESIN 600MG ER TABLET PO SCH ×2 (09:43→20:16)
[2021-04-17] MEDS: INSULIN GLARGINE UD 100 UNITS/ML SYR SUBCUT SCH ×2 (09:44→21:38)
[2021-04-17 20:00] VITALS: BP 125/75
[2021-04-17] MEDS ORDERED: FUROSEMIDE 20MG TABLET PO NR (20:00)
[2021-04-18] MEDS: IPRATROPIUM BROMIDE (0.02%) 0.5MG/2.5ML NEB HHN SCH ×6 (00:57→21:14)
[2021-04-18] MEDS: MIDODRINE HCL 5MG TABLET PO SCH ×3 (06:00→21:42)
[2021-04-18 06:51] LABS: BASOPHILS % 0.6 % (0.0-2.0); EOSINOPHILS % 2.6 % (0.0-5.0); HEMATOCRIT. 30.8 % (36.0-48.0); HEMOGLOBIN. 9.8 g/dL (12.0-16.0); LYMPHOCYTES % 12.5 % (20.0-50.0); MEAN CORPUSCULAR HEMOGLOBIN 29.5 pg (28.0-32.0); MEAN CORPUSCULAR VOLUME 93.1 fL (81.0-99.0); MEAN PLATELET VOLUME 8.6 fl (7.4-10.4); MONOCYTES % 11.5 % (2.0-8.0); NEUTROPHILS % 72.8 % (40.0-76.0); PLATELET 228 x1000/uL (130-400); RED BLOOD CELL COUNT 3.31 mill/uL (4.2-5.4); RED CELL DISTRIBUTION WIDTH 20.9 % (11.6-14.6)
[2021-04-18] MEDS: INSULIN LISPRO 100 UNITS/ML SUBCUT SCH ×4 (06:55→20:14)
[2021-04-18] MEDS: BLOOD SUGAR DIAGNOSTIC STRIP TEST SCH ×4 (06:56→20:14)
[2021-04-18] MEDS: DILTIAZEM HCL 60MG TABLET PO SCH ×3 (06:56→21:43)
[2021-04-18] MEDS: LEVOTHYROXINE SODIUM 50MCG TABLET PO SCH (06:56)
[2021-04-18 08:00] VITALS: BP 108/66
[2021-04-18] MEDS: POLYETHYLENE GLYCOL 3350 (17GM) 1 DOSE PACK PO SCH (09:00)
[2021-04-18] MEDS: APIXABAN 2.5 MG TABLET PO SCH ×2 (09:48→17:45)
[2021-04-18] MEDS: MULTIVITAMINS,THER W-MINERALS TABLET PO SCH (09:48)
[2021-04-18] MEDS: FUROSEMIDE 40MG TABLET PO SCH (09:48)
[2021-04-18] MEDS: GABAPENTIN 100MG CAPSULE PO SCH ×3 (09:49→17:45)
[2021-04-18] MEDS: PANTOPRAZOLE 40MG DR TABLET PO SCH ×2 (09:49→17:45)
[2021-04-18] MEDS: SPIRONOLACTONE 25MG TABLET PO SCH (09:49)
[2021-04-18] MEDS: GUAIFENESIN 600MG ER TABLET PO SCH ×2 (09:49→20:13)
[2021-04-18] MEDS: NYSTATIN/TRIAMCIN CREAM 15GM TOP SCH ×3 (09:51→17:45)
[2021-04-18] MEDS: INSULIN GLARGINE UD 100 UNITS/ML SYR SUBCUT SCH ×2 (11:15→21:56)
[2021-04-18 13:16] VITALS: BP 133/74
[2021-04-18] MEDS ORDERED: CEPHALEXIN 250MG/5ML ORAL SYRINGE PO SCH (18:45)
[2021-04-18 20:00] VITALS: BP 113/70
[2021-04-18] MEDS: CEPHALEXIN 250MG CAPSULE PO SCH (20:14)
[2021-04-19] MEDS: IPRATROPIUM BROMIDE (0.02%) 0.5MG/2.5ML NEB HHN SCH ×6 (01:04→20:27)
[2021-04-19 06:18] LABS: BASOPHILS % 0.9 % (0.0-2.0); EOSINOPHILS % 4.2 % (0.0-5.0); HEMATOCRIT. 28.9 % (36.0-48.0); HEMOGLOBIN. 9.1 g/dL (12.0-16.0); LYMPHOCYTES % 16.2 % (20.0-50.0); MEAN CORPUSCULAR VOLUME 92.5 fL (81.0-99.0); MEAN PLATELET VOLUME 8.6 fl (7.4-10.4); NEUTROPHILS % 70.7 % (40.0-76.0); PLATELET 244 x1000/uL (130-400); RED BLOOD CELL COUNT 3.13 mill/uL (4.2-5.4); RED CELL DISTRIBUTION WIDTH 20.7 % (11.6-14.6)
[2021-04-19 08:00] VITALS: BP 119/65
[2021-04-19] MEDS: GABAPENTIN 100MG CAPSULE PO SCH ×3 (08:43→16:21)
[2021-04-19] MEDS: MULTIVITAMINS,THER W-MINERALS TABLET PO SCH (08:43)
[2021-04-19] MEDS: SPIRONOLACTONE 25MG TABLET PO SCH (08:44)
[2021-04-19] MEDS: GUAIFENESIN 600MG ER TABLET PO SCH ×2 (08:45→21:34)
[2021-04-19] MEDS: FUROSEMIDE 40MG TABLET PO SCH (08:46)
[2021-04-19] MEDS: CEPHALEXIN 250MG CAPSULE PO SCH ×3 (08:46→16:21)
[2021-04-19] MEDS: PANTOPRAZOLE 40MG DR TABLET PO SCH ×2 (08:46→16:21)
[2021-04-19] MEDS: DOCUSATE SODIUM 100MG CAPSULE PO SCH ×2 (08:46→08:57)
[2021-04-19] MEDS: APIXABAN 2.5 MG TABLET PO SCH ×2 (08:47→16:21)
[2021-04-19] MEDS: POLYETHYLENE GLYCOL 3350 (17GM) 1 DOSE PACK PO SCH ×2 (08:47→08:57)
[2021-04-19] MEDS: NYSTATIN/TRIAMCIN CREAM 15GM TOP SCH ×3 (08:48→16:22)
[2021-04-19] MEDS: LEVOTHYROXINE SODIUM 50MCG TABLET PO SCH (08:53)
[2021-04-19] MEDS: INSULIN LISPRO 100 UNITS/ML SUBCUT SCH ×4 (08:56→21:42)
[2021-04-19] MEDS: INSULIN GLARGINE UD 100 UNITS/ML SYR SUBCUT SCH ×2 (10:34→21:41)
[2021-04-19] MEDS: BLOOD SUGAR DIAGNOSTIC STRIP TEST SCH ×3 (11:26→21:35)
[2021-04-19 12:13] VITALS: BP 130/76
[2021-04-19] MEDS: DILTIAZEM HCL 60MG TABLET PO SCH ×2 (13:10→21:35)
[2021-04-19] MEDS: MIDODRINE HCL 5MG TABLET PO SCH ×2 (13:11→21:41)
[2021-04-19 20:00] VITALS: BP 102/62
[2021-04-20] MEDS: IPRATROPIUM BROMIDE (0.02%) 0.5MG/2.5ML NEB HHN SCH ×6 (00:15→22:09)
[2021-04-20 01:03] LABS: HEMATOCRIT 29.2 % (36.0-48.0); HEMOGLOBIN 9.2 g/dL (12.0-16.0)
[2021-04-20] MEDS: MIDODRINE HCL 5MG TABLET PO SCH ×3 (05:57→21:13)
[2021-04-20] MEDS: DILTIAZEM HCL 60MG TABLET PO SCH ×3 (05:57→21:13)
[2021-04-20] MEDS: BLOOD SUGAR DIAGNOSTIC STRIP TEST SCH ×4 (05:58→21:13)
[2021-04-20] MEDS: INSULIN LISPRO 100 UNITS/ML SUBCUT SCH ×4 (05:58→21:19)
[2021-04-20] MEDS: LEVOTHYROXINE SODIUM 50MCG TABLET PO SCH (06:00)
[2021-04-20 08:00] VITALS: BP 118/68
[2021-04-20] MEDS: POLYETHYLENE GLYCOL 3350 (17GM) 1 DOSE PACK PO SCH (09:00)
[2021-04-20] MEDS: APIXABAN 2.5 MG TABLET PO SCH ×2 (09:38→17:06)
[2021-04-20] MEDS: FUROSEMIDE 40MG TABLET PO SCH (09:38)
[2021-04-20] MEDS: CEPHALEXIN 250MG CAPSULE PO SCH ×3 (09:38→17:07)
[2021-04-20] MEDS: GABAPENTIN 100MG CAPSULE PO SCH ×3 (09:38→17:06)
[2021-04-20] MEDS: PANTOPRAZOLE 40MG DR TABLET PO SCH ×2 (09:38→17:06)
[2021-04-20] MEDS: MULTIVITAMINS,THER W-MINERALS TABLET PO SCH (09:38)
[2021-04-20] MEDS: DOCUSATE SODIUM 100MG CAPSULE PO SCH (09:39)
[2021-04-20] MEDS: ERGOCALCIFEROL 50000UNITS CAPSULE PO SCH (09:39)
[2021-04-20] MEDS: GUAIFENESIN 600MG ER TABLET PO SCH ×2 (09:39→21:13)
[2021-04-20] MEDS: SPIRONOLACTONE 25MG TABLET PO SCH (09:39)
[2021-04-20] MEDS: NYSTATIN/TRIAMCIN CREAM 15GM TOP SCH ×3 (09:39→17:07)
[2021-04-20] MEDS: INSULIN GLARGINE UD 100 UNITS/ML SYR SUBCUT SCH ×2 (10:08→21:28)
[2021-04-20 20:00] VITALS: BP 110/58
[2021-04-20 20:19] LABS: HEMATOCRIT 34.6 % (36.0-48.0); HEMOGLOBIN 10.8 g/dL (12.0-16.0)
[2021-04-21] MEDS: IPRATROPIUM BROMIDE (0.02%) 0.5MG/2.5ML NEB HHN SCH ×4 (02:30→21:42)
[2021-04-21] MEDS: MIDODRINE HCL 5MG TABLET PO SCH ×3 (06:02→21:20)
[2021-04-21] MEDS: LEVOTHYROXINE SODIUM 50MCG TABLET PO SCH (06:03)
[2021-04-21] MEDS: DILTIAZEM HCL 60MG TABLET PO SCH ×3 (06:03→21:20)
[2021-04-21] MEDS: BLOOD SUGAR DIAGNOSTIC STRIP TEST SCH ×4 (06:03→20:50)
[2021-04-21] MEDS: INSULIN LISPRO 100 UNITS/ML SUBCUT SCH ×4 (06:07→20:50)
[2021-04-21 07:20] LABS: BASOPHILS % 0.8 % (0.0-2.0); HEMATOCRIT. 29.3 % (36.0-48.0); HEMOGLOBIN. 9.4 g/dL (12.0-16.0); LYMPHOCYTES % 21.8 % (20.0-50.0); MEAN CORPUSCULAR VOLUME 90.5 fL (81.0-99.0); MEAN PLATELET VOLUME 8.4 fl (7.4-10.4); MONOCYTES % 10.1 % (2.0-8.0); NEUTROPHILS % 62.3 % (40.0-76.0); PLATELET 295 x1000/uL (130-400); RED BLOOD CELL COUNT 3.24 mill/uL (4.2-5.4); RED CELL DISTRIBUTION WIDTH 19.6 % (11.6-14.6)
[2021-04-21 07:33] VITALS: BP 120/74
[2021-04-21] MEDS: DOCUSATE SODIUM 100MG CAPSULE PO SCH (10:05)
[2021-04-21] MEDS: APIXABAN 2.5 MG TABLET PO SCH ×2 (10:05→17:00)
[2021-04-21] MEDS: POLYETHYLENE GLYCOL 3350 (17GM) 1 DOSE PACK PO SCH (10:05)
[2021-04-21] MEDS: FUROSEMIDE 40MG TABLET PO SCH (10:09)
[2021-04-21] MEDS: GABAPENTIN 100MG CAPSULE PO SCH ×3 (10:09→17:29)
[2021-04-21] MEDS: MULTIVITAMINS,THER W-MINERALS TABLET PO SCH (10:09)
[2021-04-21] MEDS: SPIRONOLACTONE 25MG TABLET PO SCH (10:09)
[2021-04-21] MEDS: PANTOPRAZOLE 40MG DR TABLET PO SCH ×2 (10:09→17:29)
[2021-04-21] MEDS: CEPHALEXIN 250MG CAPSULE PO SCH ×3 (10:10→17:29)
[2021-04-21] MEDS: GUAIFENESIN 600MG ER TABLET PO SCH ×2 (10:10→21:17)
[2021-04-21] MEDS: NYSTATIN/TRIAMCIN CREAM 15GM TOP SCH ×3 (10:13→17:30)
[2021-04-21] MEDS: INSULIN GLARGINE UD 100 UNITS/ML SYR SUBCUT SCH ×2 (10:22→21:51)
[2021-04-21 20:00] VITALS: BP 116/64
[2021-04-22] MEDS: MIDODRINE HCL 5MG TABLET PO SCH ×4 (06:00→20:30)
[2021-04-22] MEDS: LEVOTHYROXINE SODIUM 50MCG TABLET PO SCH (06:05)
[2021-04-22] MEDS: DILTIAZEM HCL 60MG TABLET PO SCH ×3 (06:07→20:30)
[2021-04-22] MEDS: BLOOD SUGAR DIAGNOSTIC STRIP TEST SCH ×4 (06:07→20:31)
[2021-04-22] MEDS: INSULIN LISPRO 100 UNITS/ML SUBCUT SCH ×4 (06:11→20:33)
[2021-04-22] MEDS: IPRATROPIUM BROMIDE (0.02%) 0.5MG/2.5ML NEB HHN SCH ×4 (07:13→20:59)
[2021-04-22 08:00] VITALS: BP 122/61
[2021-04-22 08:01] LABS: BASOPHILS % 1.3 % (0.0-2.0); EOSINOPHILS % 4.5 % (0.0-5.0); HEMATOCRIT. 29.3 % (36.0-48.0); HEMOGLOBIN. 9.4 g/dL (12.0-16.0); LYMPHOCYTES % 22.2 % (20.0-50.0); MEAN CORPUSCULAR HEMOGLOBIN 29.2 pg (28.0-32.0); MEAN CORPUSCULAR VOLUME 90.7 fL (81.0-99.0); MEAN PLATELET VOLUME 8.3 fl (7.4-10.4); MONOCYTES % 10.1 % (2.0-8.0); NEUTROPHILS % 61.9 % (40.0-76.0); PLATELET 295 x1000/uL (130-400); RED BLOOD CELL COUNT 3.23 mill/uL (4.2-5.4); RED CELL DISTRIBUTION WIDTH 20.1 % (11.6-14.6)
[2021-04-22] MEDS: GABAPENTIN 100MG CAPSULE PO SCH ×3 (08:24→17:16)
[2021-04-22] MEDS: CEPHALEXIN 250MG CAPSULE PO SCH ×3 (08:24→17:16)
[2021-04-22] MEDS: FUROSEMIDE 40MG TABLET PO SCH (08:24)
[2021-04-22] MEDS: GUAIFENESIN 600MG ER TABLET PO SCH ×2 (08:25→20:30)
[2021-04-22] MEDS: MULTIVITAMINS,THER W-MINERALS TABLET PO SCH (08:25)
[2021-04-22] MEDS: DOCUSATE SODIUM 100MG CAPSULE PO SCH ×2 (08:25→08:28)
[2021-04-22] MEDS: SPIRONOLACTONE 25MG TABLET PO SCH (08:25)
[2021-04-22] MEDS: PANTOPRAZOLE 40MG DR TABLET PO SCH ×2 (08:25→17:16)
[2021-04-22] MEDS: POLYETHYLENE GLYCOL 3350 (17GM) 1 DOSE PACK PO SCH ×2 (08:25→08:31)
[2021-04-22] MEDS: NYSTATIN/TRIAMCIN CREAM 15GM TOP SCH ×3 (08:26→17:19)
[2021-04-22] MEDS: APIXABAN 2.5 MG TABLET PO SCH ×3 (08:27→20:30)
[2021-04-22] MEDS ORDERED: POTASSIUM CHLORIDE 20MEQ TABLET SR PO NR (09:15)
[2021-04-22] MEDS: INSULIN GLARGINE UD 100 UNITS/ML SYR SUBCUT SCH ×2 (09:26→22:33)
[2021-04-22 12:41] LABS: PROTHROMBIN TIME 11.2 sec (9.6-11.0)
[2021-04-22 20:00] VITALS: BP 133/76
[2021-04-23] MEDS: IPRATROPIUM BROMIDE (0.02%) 0.5MG/2.5ML NEB HHN SCH ×6 (00:20→19:58)
[2021-04-23] MEDS: BLOOD SUGAR DIAGNOSTIC STRIP TEST SCH ×4 (06:13→21:44)
[2021-04-23] MEDS: MIDODRINE HCL 5MG TABLET PO SCH ×3 (06:13→21:44)
[2021-04-23] MEDS: INSULIN LISPRO 100 UNITS/ML SUBCUT SCH ×4 (06:13→21:48)
[2021-04-23] MEDS: LEVOTHYROXINE SODIUM 50MCG TABLET PO SCH (06:13)
[2021-04-23] MEDS: DILTIAZEM HCL 60MG TABLET PO SCH ×3 (06:13→21:44)
[2021-04-23 07:24] LABS: BASOPHILS % 1.1 % (0.0-2.0); EOSINOPHILS % 4.1 % (0.0-5.0); HEMATOCRIT. 28.5 % (36.0-48.0); HEMOGLOBIN. 9.2 g/dL (12.0-16.0); LYMPHOCYTES % 21.4 % (20.0-50.0); MEAN CORPUSCULAR HEMOGLOBIN 29.5 pg (28.0-32.0); MEAN PLATELET VOLUME 8.4 fl (7.4-10.4); NEUTROPHILS % 63.4 % (40.0-76.0); PLATELET 308 x1000/uL (130-400); RED BLOOD CELL COUNT 3.13 mill/uL (4.2-5.4)
[2021-04-23 07:50] LABS: PHOSPHORUS 3.5 mg/dL (2.5-4.9)
[2021-04-23 08:26] VITALS: BP 85/43
[2021-04-23] MEDS: MULTIVITAMINS,THER W-MINERALS TABLET PO SCH (08:53)
[2021-04-23] MEDS: CEPHALEXIN 250MG CAPSULE PO SCH ×3 (08:53→17:00)
[2021-04-23] MEDS: PANTOPRAZOLE 40MG DR TABLET PO SCH ×2 (08:54→16:59)
[2021-04-23] MEDS: APIXABAN 2.5 MG TABLET PO SCH ×2 (08:54→17:00)
[2021-04-23] MEDS: GUAIFENESIN 600MG ER TABLET PO SCH ×2 (08:54→21:44)
[2021-04-23] MEDS: FUROSEMIDE 40MG TABLET PO SCH (08:54)
[2021-04-23] MEDS: DOCUSATE SODIUM 100MG CAPSULE PO SCH (08:54)
[2021-04-23] MEDS: NYSTATIN/TRIAMCIN CREAM 15GM TOP SCH ×3 (08:54→17:00)
[2021-04-23] MEDS: GABAPENTIN 100MG CAPSULE PO SCH ×3 (08:54→16:59)
[2021-04-23] MEDS: POLYETHYLENE GLYCOL 3350 (17GM) 1 DOSE PACK PO SCH (08:55)
[2021-04-23] MEDS: INSULIN GLARGINE UD 100 UNITS/ML SYR SUBCUT SCH ×2 (10:44→22:08)
[2021-04-23 20:00] VITALS: BP 119/61
[2021-04-24] MEDS: IPRATROPIUM BROMIDE (0.02%) 0.5MG/2.5ML NEB HHN SCH ×6 (04:00→21:05)
[2021-04-24] MEDS: LEVOTHYROXINE SODIUM 50MCG TABLET PO SCH (05:44)
[2021-04-24] MEDS: BLOOD SUGAR DIAGNOSTIC STRIP TEST SCH ×4 (05:44→21:07)
[2021-04-24] MEDS: DILTIAZEM HCL 60MG TABLET PO SCH ×3 (05:45→21:06)
[2021-04-24] MEDS: MIDODRINE HCL 5MG TABLET PO SCH ×3 (05:45→21:07)
[2021-04-24] MEDS: INSULIN LISPRO 100 UNITS/ML SUBCUT SCH ×4 (05:49→21:00)
[2021-04-24 06:49] LABS: BASOPHILS % 0.8 % (0.0-2.0); EOSINOPHILS % 4.4 % (0.0-5.0); HEMATOCRIT. 29.5 % (36.0-48.0); HEMOGLOBIN. 9.4 g/dL (12.0-16.0); LYMPHOCYTES % 16.8 % (20.0-50.0); MEAN CORPUSCULAR HEMOGLOBIN 29.3 pg (28.0-32.0); MEAN CORPUSCULAR VOLUME 91.7 fL (81.0-99.0); MEAN PLATELET VOLUME 8.2 fl (7.4-10.4); MONOCYTES % 9.6 % (2.0-8.0); NEUTROPHILS % 68.4 % (40.0-76.0); PLATELET 290 x1000/uL (130-400); RED BLOOD CELL COUNT 3.22 mill/uL (4.2-5.4); RED CELL DISTRIBUTION WIDTH 20.2 % (11.6-14.6)
[2021-04-24 08:00] VITALS: BP 116/64
[2021-04-24] MEDS: DOCUSATE SODIUM 100MG CAPSULE PO SCH (09:00)
[2021-04-24] MEDS: POLYETHYLENE GLYCOL 3350 (17GM) 1 DOSE PACK PO SCH (09:00)
[2021-04-24] MEDS: NYSTATIN/TRIAMCIN CREAM 15GM TOP SCH ×3 (09:00→17:21)
[2021-04-24] MEDS: GABAPENTIN 100MG CAPSULE PO SCH ×3 (09:35→17:21)
[2021-04-24] MEDS: GUAIFENESIN 600MG ER TABLET PO SCH ×2 (09:35→21:06)
[2021-04-24] MEDS: APIXABAN 2.5 MG TABLET PO SCH ×2 (09:35→17:21)
[2021-04-24] MEDS: PANTOPRAZOLE 40MG DR TABLET PO SCH ×2 (09:35→17:20)
[2021-04-24] MEDS: FUROSEMIDE 40MG TABLET PO SCH (09:35)
[2021-04-24] MEDS: MULTIVITAMINS,THER W-MINERALS TABLET PO SCH (09:36)
[2021-04-24] MEDS: INSULIN GLARGINE UD 100 UNITS/ML SYR SUBCUT SCH ×2 (09:40→21:13)
[2021-04-24 20:00] VITALS: BP 116/73
[2021-04-25] MEDS: IPRATROPIUM BROMIDE (0.02%) 0.5MG/2.5ML NEB HHN SCH ×5 (04:00→20:03)
[2021-04-25] MEDS: DILTIAZEM HCL 60MG TABLET PO SCH ×3 (06:00→22:20)
[2021-04-25] MEDS: MIDODRINE HCL 5MG TABLET PO SCH ×3 (06:30→22:02)
[2021-04-25] MEDS: LEVOTHYROXINE SODIUM 50MCG TABLET PO SCH (06:31)
[2021-04-25] MEDS: BLOOD SUGAR DIAGNOSTIC STRIP TEST SCH ×4 (06:31→21:00)
[2021-04-25 06:43] LABS: BASOPHILS % 0.8 % (0.0-2.0); HEMOGLOBIN. 9.6 g/dL (12.0-16.0); LYMPHOCYTES % 18.1 % (20.0-50.0); MEAN CORPUSCULAR HEMOGLOBIN 29.7 pg (28.0-32.0); MEAN CORPUSCULAR VOLUME 90.4 fL (81.0-99.0); MEAN PLATELET VOLUME 8.1 fl (7.4-10.4); MONOCYTES % 9.1 % (2.0-8.0); PLATELET 265 x1000/uL (130-400); RED BLOOD CELL COUNT 3.21 mill/uL (4.2-5.4)
[2021-04-25 08:00] VITALS: BP 105/59
[2021-04-25] MEDS: FUROSEMIDE 40MG TABLET PO SCH (08:24)
[2021-04-25] MEDS: GUAIFENESIN 600MG ER TABLET PO SCH ×2 (08:24→22:02)
[2021-04-25] MEDS: GABAPENTIN 100MG CAPSULE PO SCH ×3 (08:24→16:43)
[2021-04-25] MEDS: PANTOPRAZOLE 40MG DR TABLET PO SCH ×2 (08:24→16:43)
[2021-04-25] MEDS: APIXABAN 2.5 MG TABLET PO SCH ×2 (08:24→16:43)
[2021-04-25] MEDS: MULTIVITAMINS,THER W-MINERALS TABLET PO SCH (08:24)
[2021-04-25] MEDS: POLYETHYLENE GLYCOL 3350 (17GM) 1 DOSE PACK PO SCH (08:29)
[2021-04-25] MEDS: INSULIN LISPRO 100 UNITS/ML SUBCUT SCH ×4 (08:29→21:00)
[2021-04-25] MEDS: DOCUSATE SODIUM 100MG CAPSULE PO SCH (08:29)
[2021-04-25] MEDS: NYSTATIN/TRIAMCIN CREAM 15GM TOP SCH ×3 (08:29→17:00)
[2021-04-25] MEDS: INSULIN GLARGINE UD 100 UNITS/ML SYR SUBCUT SCH ×2 (10:26→22:30)
[2021-04-25 20:00] VITALS: BP 120/68
[2021-04-26] MEDS: IPRATROPIUM BROMIDE (0.02%) 0.5MG/2.5ML NEB HHN SCH ×5 (04:00→21:09)
[2021-04-26] MEDS: BLOOD SUGAR DIAGNOSTIC STRIP TEST SCH ×4 (05:39→21:00)
[2021-04-26] MEDS: LEVOTHYROXINE SODIUM 50MCG TABLET PO SCH (06:26)
[2021-04-26] MEDS: MIDODRINE HCL 5MG TABLET PO SCH ×3 (06:27→22:00)
[2021-04-26] MEDS: DILTIAZEM HCL 60MG TABLET PO SCH ×3 (06:27→22:04)
[2021-04-26 07:56] VITALS: BP 100/54
[2021-04-26] MEDS: FUROSEMIDE 40MG TABLET PO SCH (09:56)
[2021-04-26] MEDS: GUAIFENESIN 600MG ER TABLET PO SCH ×2 (09:56→22:04)
[2021-04-26] MEDS: APIXABAN 2.5 MG TABLET PO SCH ×2 (09:56→16:49)
[2021-04-26] MEDS: GABAPENTIN 100MG CAPSULE PO SCH ×3 (09:57→16:49)
[2021-04-26] MEDS: PANTOPRAZOLE 40MG DR TABLET PO SCH ×2 (09:57→16:49)
[2021-04-26] MEDS: MULTIVITAMINS,THER W-MINERALS TABLET PO SCH (09:57)
[2021-04-26] MEDS: DOCUSATE SODIUM 100MG CAPSULE PO SCH (10:00)
[2021-04-26] MEDS: POLYETHYLENE GLYCOL 3350 (17GM) 1 DOSE PACK PO SCH (10:00)
[2021-04-26] MEDS: INSULIN LISPRO 100 UNITS/ML SUBCUT SCH ×4 (10:00→21:00)
[2021-04-26] MEDS: NYSTATIN/TRIAMCIN CREAM 15GM TOP SCH ×3 (10:02→16:48)
[2021-04-26 10:29] LABS: HEMATOCRIT 33.9 % (36.0-48.0); HEMOGLOBIN 10.7 g/dL (12.0-16.0); MEAN CORPUSCULAR HEMOGLOBIN 29.2 pg (28.0-32.0); MEAN CORPUSCULAR VOLUME 92.5 fL (81.0-99.0); PLATELET 328 x1000/uL (130-400); RED BLOOD CELL COUNT 3.66 mill/uL (4.2-5.4); RED CELL DISTRIBUTION WIDTH 20.5 % (11.6-14.6)
[2021-04-26] MEDS: INSULIN GLARGINE UD 100 UNITS/ML SYR SUBCUT SCH ×2 (10:29→22:11)
[2021-04-26 20:00] VITALS: BP 119/53
[2021-04-27] MEDS: BLOOD SUGAR DIAGNOSTIC STRIP TEST SCH ×3 (05:47→21:23)
[2021-04-27] MEDS: DILTIAZEM HCL 60MG TABLET PO SCH ×3 (06:00→21:28)
[2021-04-27] MEDS: MIDODRINE HCL 5MG TABLET PO SCH ×3 (06:13→21:28)
[2021-04-27] MEDS: LEVOTHYROXINE SODIUM 50MCG TABLET PO SCH (06:14)
[2021-04-27] MEDS: IPRATROPIUM BROMIDE (0.02%) 0.5MG/2.5ML NEB HHN SCH ×4 (07:30→20:50)
[2021-04-27 08:25] VITALS: BP 107/59
[2021-04-27] MEDS: POLYETHYLENE GLYCOL 3350 (17GM) 1 DOSE PACK PO SCH (09:00)
[2021-04-27] MEDS: INSULIN LISPRO 100 UNITS/ML SUBCUT SCH ×3 (09:00→21:00)
[2021-04-27] MEDS: MULTIVITAMINS,THER W-MINERALS TABLET PO SCH (09:36)
[2021-04-27] MEDS: GUAIFENESIN 600MG ER TABLET PO SCH ×2 (09:36→21:28)
[2021-04-27] MEDS: FUROSEMIDE 20MG TABLET PO SCH (09:36)
[2021-04-27] MEDS: ERGOCALCIFEROL 50000UNITS CAPSULE PO SCH (09:36)
[2021-04-27] MEDS: PANTOPRAZOLE 40MG DR TABLET PO SCH ×2 (09:36→17:54)
[2021-04-27] MEDS: GABAPENTIN 100MG CAPSULE PO SCH ×3 (09:36→17:55)
[2021-04-27] MEDS: DOCUSATE SODIUM 100MG CAPSULE PO SCH (09:36)
[2021-04-27] MEDS: APIXABAN 2.5 MG TABLET PO SCH ×2 (09:37→17:54)
[2021-04-27] MEDS: INSULIN GLARGINE UD 100 UNITS/ML SYR SUBCUT SCH ×2 (10:00→21:41)
[2021-04-27 20:00] VITALS: BP 116/65
[2021-04-28] MEDS: IPRATROPIUM BROMIDE (0.02%) 0.5MG/2.5ML NEB HHN SCH ×6 (00:20→21:07)
[2021-04-28] MEDS: DILTIAZEM HCL 60MG TABLET PO SCH ×3 (06:00→21:41)
[2021-04-28] MEDS: LEVOTHYROXINE SODIUM 50MCG TABLET PO SCH (06:18)
[2021-04-28] MEDS: BLOOD SUGAR DIAGNOSTIC STRIP TEST SCH ×4 (06:18→21:41)
[2021-04-28] MEDS: MIDODRINE HCL 5MG TABLET PO SCH ×3 (06:19→21:41)
[2021-04-28 06:29] LABS: HEMATOCRIT. 29.3 % (36.0-48.0); HEMOGLOBIN. 9.2 g/dL (12.0-16.0); LYMPHOCYTES % 19.6 % (20.0-50.0); MEAN CORPUSCULAR HEMOGLOBIN 29.2 pg (28.0-32.0); MEAN CORPUSCULAR VOLUME 92.6 fL (81.0-99.0); MEAN PLATELET VOLUME 8.3 fl (7.4-10.4); MONOCYTES % 10.7 % (2.0-8.0); NEUTROPHILS % 64.7 % (40.0-76.0); PLATELET 237 x1000/uL (130-400); RED BLOOD CELL COUNT 3.17 mill/uL (4.2-5.4); RED CELL DISTRIBUTION WIDTH 19.7 % (11.6-14.6)
[2021-04-28 08:26] VITALS: BP 118/57
[2021-04-28] MEDS: PANTOPRAZOLE 40MG DR TABLET PO SCH ×2 (08:50→17:31)
[2021-04-28] MEDS: FUROSEMIDE 20MG TABLET PO SCH (08:50)
[2021-04-28] MEDS: MULTIVITAMINS,THER W-MINERALS TABLET PO SCH (08:50)
[2021-04-28] MEDS: GABAPENTIN 100MG CAPSULE PO SCH ×3 (08:50→17:31)
[2021-04-28] MEDS: APIXABAN 2.5 MG TABLET PO SCH ×2 (08:50→17:31)
[2021-04-28] MEDS: GUAIFENESIN 600MG ER TABLET PO SCH ×2 (08:50→21:40)
[2021-04-28] MEDS: DOCUSATE SODIUM 100MG CAPSULE PO SCH (08:54)
[2021-04-28] MEDS: INSULIN LISPRO 100 UNITS/ML SUBCUT SCH ×4 (08:54→21:00)
[2021-04-28] MEDS: POLYETHYLENE GLYCOL 3350 (17GM) 1 DOSE PACK PO SCH (08:54)
[2021-04-28] MEDS: NYSTATIN/TRIAMCIN CREAM 15GM TOP SCH ×3 (08:55→17:31)
[2021-04-28] MEDS ORDERED: POTASSIUM CHLORIDE 20MEQ TABLET SR PO NR (09:30)
[2021-04-28] MEDS: VITAMINS A AND D OINT TUBE TOP SCH (12:16)
[2021-04-28] MEDS: INSULIN GLARGINE UD 100 UNITS/ML SYR SUBCUT SCH ×2 (12:36→21:54)
[2021-04-28 20:00] VITALS: BP 133/71
[2021-04-29] MEDS: IPRATROPIUM BROMIDE (0.02%) 0.5MG/2.5ML NEB HHN SCH ×6 (04:00→20:11)
[2021-04-29] MEDS: DILTIAZEM HCL 60MG TABLET PO SCH ×3 (06:00→22:11)
[2021-04-29] MEDS: MIDODRINE HCL 5MG TABLET PO SCH ×3 (06:32→22:14)
[2021-04-29] MEDS: INSULIN LISPRO 100 UNITS/ML SUBCUT SCH ×4 (06:33→22:13)
[2021-04-29] MEDS: LEVOTHYROXINE SODIUM 50MCG TABLET PO SCH (06:33)
[2021-04-29] MEDS: BLOOD SUGAR DIAGNOSTIC STRIP TEST SCH ×4 (06:33→21:00)
[2021-04-29 08:00] VITALS: BP 126/64
[2021-04-29] MEDS: GUAIFENESIN 600MG ER TABLET PO SCH ×2 (10:45→22:10)
[2021-04-29] MEDS: MULTIVITAMINS,THER W-MINERALS TABLET PO SCH (10:45)
[2021-04-29] MEDS: GABAPENTIN 100MG CAPSULE PO SCH ×3 (10:45→18:40)
[2021-04-29] MEDS: PANTOPRAZOLE 40MG DR TABLET PO SCH ×2 (10:45→18:40)
[2021-04-29] MEDS: APIXABAN 2.5 MG TABLET PO SCH ×2 (10:45→18:40)
[2021-04-29] MEDS: FUROSEMIDE 20MG TABLET PO SCH (10:45)
[2021-04-29] MEDS: NYSTATIN/TRIAMCIN CREAM 15GM TOP SCH ×3 (10:46→18:40)
[2021-04-29] MEDS: VITAMINS A AND D OINT TUBE TOP SCH ×2 (10:46→15:23)
[2021-04-29] MEDS: INSULIN GLARGINE UD 100 UNITS/ML SYR SUBCUT SCH ×2 (10:50→22:12)
[2021-04-29] MEDS: DOCUSATE SODIUM 100MG CAPSULE PO SCH (10:50)
[2021-04-29] MEDS: POLYETHYLENE GLYCOL 3350 (17GM) 1 DOSE PACK PO SCH (10:51)
[2021-04-29 20:00] VITALS: BP 118/69
[2021-04-30] MEDS: IPRATROPIUM BROMIDE (0.02%) 0.5MG/2.5ML NEB HHN SCH ×6 (04:00→19:49)
[2021-04-30] MEDS: DILTIAZEM HCL 60MG TABLET PO SCH ×3 (06:18→21:28)
[2021-04-30] MEDS: LEVOTHYROXINE SODIUM 50MCG TABLET PO SCH (06:19)
[2021-04-30] MEDS: INSULIN LISPRO 100 UNITS/ML SUBCUT SCH ×4 (06:19→21:00)
[2021-04-30] MEDS: BLOOD SUGAR DIAGNOSTIC STRIP TEST SCH ×4 (06:19→21:00)
[2021-04-30] MEDS: MIDODRINE HCL 5MG TABLET PO SCH ×3 (06:19→21:27)
[2021-04-30 07:46] VITALS: BP 107/60
[2021-04-30] MEDS: GUAIFENESIN 600MG ER TABLET PO SCH ×2 (08:22→21:24)
[2021-04-30] MEDS: FUROSEMIDE 20MG TABLET PO SCH (08:22)
[2021-04-30] MEDS: PANTOPRAZOLE 40MG DR TABLET PO SCH ×2 (08:23→17:40)
[2021-04-30] MEDS: GABAPENTIN 100MG CAPSULE PO SCH ×3 (08:23→17:40)
[2021-04-30] MEDS: POLYETHYLENE GLYCOL 3350 (17GM) 1 DOSE PACK PO SCH (08:23)
[2021-04-30] MEDS: MULTIVITAMINS,THER W-MINERALS TABLET PO SCH (08:23)
[2021-04-30] MEDS: APIXABAN 2.5 MG TABLET PO SCH ×2 (08:23→17:40)
[2021-04-30] MEDS: DOCUSATE SODIUM 100MG CAPSULE PO SCH (08:24)
[2021-04-30] MEDS: NYSTATIN/TRIAMCIN CREAM 15GM TOP SCH ×3 (08:24→17:00)
[2021-04-30] MEDS: INSULIN GLARGINE UD 100 UNITS/ML SYR SUBCUT SCH ×2 (10:08→21:26)
[2021-04-30 12:32] LABS: BASOPHILS % 0.8 % (0.0-2.0); EOSINOPHILS % 3.2 % (0.0-5.0); HEMATOCRIT. 31.6 % (36.0-48.0); HEMOGLOBIN. 10.3 g/dL (12.0-16.0); MEAN CORPUSCULAR HEMOGLOBIN 29.5 pg (28.0-32.0); MEAN CORPUSCULAR VOLUME 90.9 fL (81.0-99.0); MEAN PLATELET VOLUME 8.5 fl (7.4-10.4); MONOCYTES % 7.8 % (2.0-8.0); NEUTROPHILS % 72.2 % (40.0-76.0); PLATELET 265 x1000/uL (130-400); RED BLOOD CELL COUNT 3.48 mill/uL (4.2-5.4); RED CELL DISTRIBUTION WIDTH 19.8 % (11.6-14.6)
[2021-04-30 20:00] VITALS: BP 126/70
[2021-05-01] MEDS: IPRATROPIUM BROMIDE (0.02%) 0.5MG/2.5ML NEB HHN SCH ×6 (04:00→20:11)
[2021-05-01 05:56] LABS: BASOPHILS % 0.9 % (0.0-2.0); EOSINOPHILS % 4.4 % (0.0-5.0); HEMATOCRIT. 31.1 % (36.0-48.0); HEMOGLOBIN. 9.7 g/dL (12.0-16.0); LYMPHOCYTES % 19.2 % (20.0-50.0); MEAN CORPUSCULAR VOLUME 92.8 fL (81.0-99.0); MEAN PLATELET VOLUME 8.5 fl (7.4-10.4); MONOCYTES % 9.9 % (2.0-8.0); NEUTROPHILS % 65.6 % (40.0-76.0); PLATELET 238 x1000/uL (130-400); RED BLOOD CELL COUNT 3.35 mill/uL (4.2-5.4); RED CELL DISTRIBUTION WIDTH 19.4 % (11.6-14.6)
[2021-05-01] MEDS: DILTIAZEM HCL 60MG TABLET PO SCH ×3 (06:00→22:30)
[2021-05-01] MEDS: LEVOTHYROXINE SODIUM 50MCG TABLET PO SCH (06:18)
[2021-05-01] MEDS: MIDODRINE HCL 5MG TABLET PO SCH ×3 (06:18→22:32)
[2021-05-01] MEDS: BLOOD SUGAR DIAGNOSTIC STRIP TEST SCH ×4 (06:18→21:00)
[2021-05-01] MEDS: INSULIN LISPRO 100 UNITS/ML SUBCUT SCH ×4 (06:19→21:00)
[2021-05-01] MEDS: GUAIFENESIN 600MG ER TABLET PO SCH ×2 (08:27→22:33)
[2021-05-01] MEDS: GABAPENTIN 100MG CAPSULE PO SCH ×3 (08:27→16:47)
[2021-05-01] MEDS: APIXABAN 2.5 MG TABLET PO SCH ×2 (08:27→16:47)
[2021-05-01] MEDS: PANTOPRAZOLE 40MG DR TABLET PO SCH ×2 (08:27→16:47)
[2021-05-01] MEDS: FUROSEMIDE 20MG TABLET PO SCH (08:27)
[2021-05-01] MEDS: MULTIVITAMINS,THER W-MINERALS TABLET PO SCH (08:27)
[2021-05-01] MEDS: NYSTATIN/TRIAMCIN CREAM 15GM TOP SCH ×3 (08:28→16:50)
[2021-05-01] MEDS: POLYETHYLENE GLYCOL 3350 (17GM) 1 DOSE PACK PO SCH (08:28)
[2021-05-01] MEDS: DOCUSATE SODIUM 100MG CAPSULE PO SCH (08:28)
[2021-05-01 08:40] VITALS: BP 125/71
[2021-05-01] MEDS: VITAMINS A AND D OINT TUBE TOP SCH (10:20)
[2021-05-01] MEDS: INSULIN GLARGINE UD 100 UNITS/ML SYR SUBCUT SCH ×2 (10:22→22:18)
[2021-05-01 20:00] VITALS: BP 118/77
[2021-05-02] MEDS: DILTIAZEM HCL 60MG TABLET PO SCH ×2 (05:52→13:18)
[2021-05-02] MEDS: MIDODRINE HCL 5MG TABLET PO SCH ×2 (05:55→13:19)
[2021-05-02] MEDS: LEVOTHYROXINE SODIUM 50MCG TABLET PO SCH (06:52)
[2021-05-02] MEDS: BLOOD SUGAR DIAGNOSTIC STRIP TEST SCH ×3 (06:54→16:46)
[2021-05-02 08:00] VITALS: BP 129/73
[2021-05-02] MEDS: IPRATROPIUM BROMIDE (0.02%) 0.5MG/2.5ML NEB HHN SCH ×2 (08:05→14:14)
[2021-05-02] MEDS: GABAPENTIN 100MG CAPSULE PO SCH ×3 (08:12→16:44)
[2021-05-02] MEDS: MULTIVITAMINS,THER W-MINERALS TABLET PO SCH (08:12)
[2021-05-02] MEDS: GUAIFENESIN 600MG ER TABLET PO SCH (08:13)
[2021-05-02] MEDS: PANTOPRAZOLE 40MG DR TABLET PO SCH ×2 (08:13→16:44)
[2021-05-02] MEDS: APIXABAN 2.5 MG TABLET PO SCH ×2 (08:13→16:44)
[2021-05-02] MEDS: FUROSEMIDE 20MG TABLET PO SCH (08:13)
[2021-05-02] MEDS: POLYETHYLENE GLYCOL 3350 (17GM) 1 DOSE PACK PO SCH (08:14)
[2021-05-02] MEDS: DOCUSATE SODIUM 100MG CAPSULE PO SCH (08:14)
[2021-05-02] MEDS: INSULIN LISPRO 100 UNITS/ML SUBCUT SCH ×3 (08:14→16:48)
[2021-05-02] MEDS: VITAMINS A AND D OINT TUBE TOP SCH (08:18)
[2021-05-02] MEDS: NYSTATIN/TRIAMCIN CREAM 15GM TOP SCH ×3 (08:18→16:46)
[2021-05-02] MEDS ORDERED: DILT60TA35 PO (10:10)
[2021-05-02] MEDS ORDERED: APIX2.5T PO (10:10)
[2021-05-02] MEDS ORDERED: MIDO5TAB4 PO (10:10)
[2021-05-02] MEDS ORDERED: LEVO50TA8 PO (10:10)
[2021-05-02] MEDS ORDERED: TCNYC15 TOP (10:10)
[2021-05-02] MEDS ORDERED: INSU100I28 SQ (10:10)
[2021-05-02] MEDS: INSULIN GLARGINE UD 100 UNITS/ML SYR SUBCUT SCH (10:42)
[2021-05-02 12:02] VITALS: BP 129/73
[2021-05-02 13:14] VITALS: BP 128/64
== END 2021-05-02 17:00 | disposition home health service (06) | DRG 947 ==
PROVIDERS: ADMIT Physical Medicine & Rehabilitation Spinal Cord Injury Medicine; ATTEND Family Medicine Adult Medicine
DX: R53.81 Other malaise (principal); J96.20 Acute and chronic respiratory failure, unspecified whether with hypoxia or hypercapnia; N17.0 Acute kidney failure with tubular necrosis; L03.116 Cellulitis of left lower limb; D68.59 Other primary thrombophilia; E87.1 Hypo-osmolality and hyponatremia; G62.81 Critical illness polyneuropathy; I13.0 Hypertensive heart and chronic kidney disease with heart failure and stage 1 through stage 4 chronic kidney disease, or unspecified chronic kidney disease; I42.9 Cardiomyopathy, unspecified; I47.2 Ventricular tachycardia; I48.20 Chronic atrial fibrillation, unspecified; I50.22 Chronic systolic (congestive) heart failure; J98.11 Atelectasis; N39.0 Urinary tract infection, site not specified; L03.115 Cellulitis of right lower limb; L30.9 Dermatitis, unspecified; B36.9 Superficial mycosis, unspecified; D50.9 Iron deficiency anemia, unspecified; E03.9 Hypothyroidism, unspecified; E11.22 Type 2 diabetes mellitus with diabetic chronic kidney disease; E11.36 Type 2 diabetes mellitus with diabetic cataract; E11.40 Type 2 diabetes mellitus with diabetic neuropathy, unspecified; E66.9 Obesity, unspecified; E78.00 Pure hypercholesterolemia, unspecified; E78.5 Hyperlipidemia, unspecified; E83.42 Hypomagnesemia; E87.6 Hypokalemia; E87.8 Other disorders of electrolyte and fluid balance, not elsewhere classified; F39 Unspecified mood [affective] disorder; G47.30 Sleep apnea, unspecified; I25.10 Atherosclerotic heart disease of native coronary artery without angina pectoris; I25.2 Old myocardial infarction; I27.29 Other secondary pulmonary hypertension; I27.81 Cor pulmonale (chronic); I48.0 Paroxysmal atrial fibrillation; I49.5 Sick sinus syndrome; I87.2 Venous insufficiency (chronic) (peripheral); I87.8 Other specified disorders of veins; I95.89 Other hypotension; J44.9 Chronic obstructive pulmonary disease, unspecified; K21.9 Gastro-esophageal reflux disease without esophagitis; K31.7 Polyp of stomach and duodenum; K56.41 Fecal impaction; K64.9 Unspecified hemorrhoids; K76.0 Fatty (change of) liver, not elsewhere classified; M47.9 Spondylosis, unspecified; N18.9 Chronic kidney disease, unspecified; W19.XXXA Unspecified fall, initial encounter; Y92.009 Unspecified place in unspecified non-institutional (private) residence as the place of occurrence of the external cause; Z79.01 Long term (current) use of anticoagulants; Z79.4 Long term (current) use of insulin; Z86.711 Personal history of pulmonary embolism; Z86.718 Personal history of other venous thrombosis and embolism; Z87.891 Personal history of nicotine dependence; Z90.710 Acquired absence of both cervix and uterus; Z95.5 Presence of coronary angioplasty implant and graft; Z95.810 Presence of automatic (implantable) cardiac defibrillator; Z99.81 Dependence on supplemental oxygen
CPT/HCPCS: 36415; 36600; 71045; 80048; 80053; 82375; 82728; 82805; 82962; 83540; 83550; 83735; 84100; 84134; 85014; 85018; 85025; 85027; 93005; 93970; 93971; 94640; 97022; 97110; 97112; 97116; 97162; 97166; 97530; 97535; A4565; J1815; J1940; J2920; J3490; J7512; J7608; J7626; Q0163

== ENCOUNTER 2021-07-27 00:28 | Inpatient (IN) | payer BC, MEDICARE ==
[2021-07-27] VITALS (7 sets, daily range): BP systolic 107–135; BP diastolic 38–65
[~2021-07-27] VITALS: Ht 167.6 cm; Wt 76.2 kg
[~2021-07-27 00:28] MED LIST changes: +ALBU6.7H9 INH; +APIX2.5T PO; +BLOO-158 HHN; -CLOP75TA15 PO; -COENZYME Q10 PO; +DESL5TAB PO; -DILT180C66 PO; +DILT60TA35 PO; -ELIQUIS; +FURO40TA5 PO; -FURO80TA3 PO; +GLYB5TAB7 PO; +INSU100I28 SQ; -INVOKANA; -ISOS30TA91 PO; +LEVO50TA8 PO; -LEVVL SUBCUT; +METO2.5T2 PO; +MIDO5TAB4 PO; +MOME13HF3 INH; -NIAC-34 PO; -OMEP40CA12 PO; -POTA20TA82 PO; +RIOC2.5T PO; +TCNYC15 TOP
[2021-07-27] MEDS ORDERED: DIPHENHYDRAMINE 25MG CAPSULE PO ONE (01:15)
[2021-07-27 01:40] LABS: BASOPHILS % 0.6 % (0.0-2.0); CHLORIDE 102 mEq/L (98-107); EOSINOPHILS % 0.1 % (0.0-5.0); HEMOGLOBIN. 11.7 g/dL (12.0-16.0); LYMPHOCYTES % 18.8 % (20.0-50.0); MEAN CORPUSCULAR HEMOGLOBIN 26.4 pg (28.0-32.0); MEAN CORPUSCULAR VOLUME 83.3 fL (81.0-99.0); MEAN PLATELET VOLUME 9.2 fl (7.4-10.4); MONOCYTES % 14.6 % (2.0-8.0); NEUTROPHILS % 65.9 % (40.0-76.0); PLATELET 197 x1000/uL (130-400); RED BLOOD CELL COUNT 4.45 mill/uL (4.2-5.4); RED CELL DISTRIBUTION WIDTH 17.4 % (11.6-14.6)
[2021-07-27] MEDS ORDERED: METOCLOPRAMIDE HCL 10MG TABLET PO ONE (01:45)
[2021-07-27] MEDS ORDERED: APIXABAN 2.5 MG TABLET PO SCH (09:00)
[2021-07-27] MEDS ORDERED: DEXTROSE 50% WATER 50ML SYRINGE IV PRN (09:00)
[2021-07-27] MEDS ORDERED: MIDODRINE HCL 5MG TABLET PO SCH (09:00)
[2021-07-27 09:12] LABS: BASOPHILS % 0.4 % (0.0-2.0); EOSINOPHILS % 0.1 % (0.0-5.0); HEMATOCRIT. 39.6 % (36.0-48.0); HEMOGLOBIN. 12.4 g/dL (12.0-16.0); LYMPHOCYTES % 18.1 % (20.0-50.0); MEAN CORPUSCULAR HEMOGLOBIN 26.2 pg (28.0-32.0); MEAN CORPUSCULAR VOLUME 83.8 fL (81.0-99.0); MEAN PLATELET VOLUME 9.4 fl (7.4-10.4); MONOCYTES % 11.9 % (2.0-8.0); NEUTROPHILS % 69.5 % (40.0-76.0); PLATELET 199 x1000/uL (130-400); RED BLOOD CELL COUNT 4.73 mill/uL (4.2-5.4); RED CELL DISTRIBUTION WIDTH 17.2 % (11.6-14.6)
[2021-07-27] MEDS: ASPIRIN 81MG TABLET PO SCH (12:29)
[2021-07-27] MEDS: PANTOPRAZOLE 40MG DR TABLET PO SCH (12:30)
[2021-07-27] MEDS: BLOOD SUGAR DIAGNOSTIC STRIP TEST SCH ×3 (12:30→20:41)
[2021-07-27] MEDS: MIDODRINE HCL 5MG TABLET PO SCH ×2 (13:00→17:00)
[2021-07-27] MEDS: INSULIN LISPRO 100 UNITS/ML SUBCUT SCH ×3 (13:00→20:41)
[2021-07-27] MEDS ORDERED: PROMETHAZINE HCL 25MG TABLET PO PRN (13:00)
[2021-07-27] MEDS: GABAPENTIN 100MG CAPSULE PO SCH ×2 (15:30→20:42)
[2021-07-27] MEDS: IPRATROPIUM/ALBUTEROL 0.5-3(2.5)MG/3ML NEB HHN SCH ×2 (15:59→20:33)
[2021-07-27] MEDS: ENOXAPARIN 40MG/0.4ML SYR SUBCUT SCH (20:43)
[2021-07-27] MEDS: CARVEDILOL 3.125 MG TABLET PO SCH (20:44)
[2021-07-28] VITALS (10 sets, daily range): BP systolic 100–135; BP diastolic 40–64
[2021-07-28] MEDS: IPRATROPIUM/ALBUTEROL 0.5-3(2.5)MG/3ML NEB HHN SCH ×3 (00:48→17:24)
[2021-07-28] MEDS: GABAPENTIN 100MG CAPSULE PO SCH ×3 (05:38→21:19)
[2021-07-28] MEDS: INSULIN LISPRO 100 UNITS/ML SUBCUT SCH ×4 (08:00→21:21)
[2021-07-28] MEDS: BLOOD SUGAR DIAGNOSTIC STRIP TEST SCH ×4 (08:21→21:11)
[2021-07-28] MEDS: CARVEDILOL 3.125 MG TABLET PO SCH ×2 (09:00→21:19)
[2021-07-28] MEDS: FUROSEMIDE 40MG/4ML VIAL IVP SCH (09:53)
[2021-07-28] MEDS: ACETAMINOPHEN 650MG/20.3ML UDC PO PRN (09:53)
[2021-07-28] MEDS: ASPIRIN 81MG TABLET PO SCH (09:54)
[2021-07-28] MEDS: PANTOPRAZOLE 40MG DR TABLET PO SCH (09:54)
[2021-07-28] MEDS: POTASSIUM CHLORIDE 10MEQ TABLET SR PO SCH (10:29)
[2021-07-28] MEDS: MIDODRINE HCL 5MG TABLET PO SCH ×3 (10:32→17:09)
[2021-07-28] MEDS ORDERED: DEXAMETHASONE 10 MG/ML VIAL IV ONE (13:00)
[2021-07-28] MEDS ORDERED: AZITHROMYCIN 500 MG TABLET PO SCH (13:00)
[2021-07-28] MEDS ORDERED: CEFTRIAXONE 1 G PREMIX 50 ML IV SCH (13:00)
[2021-07-28] MEDS ORDERED: CEFTRIAXONE 1,000 MG in DEXTROSE 5% WATER 50 ML IV SCH ×2 (13:45→16:00)
[2021-07-28] MEDS ORDERED: DEXAMETHASONE 4MG TABLET PO NR (17:15)
[2021-07-28] MEDS ORDERED: FAMOTIDINE 20MG TABLET PO SCH (21:00)
[2021-07-28] MEDS: ENOXAPARIN 40MG/0.4ML SYR SUBCUT SCH (21:20)
[2021-07-29] VITALS: BP 131/63
[2021-07-29 04:00] VITALS: BP 126/59
[2021-07-29] MEDS: GABAPENTIN 100MG CAPSULE PO SCH ×3 (05:29→20:55)
[2021-07-29 06:51] LABS: HEMOGLOBIN. 11.6 g/dL (12.0-16.0); MEAN CORPUSCULAR VOLUME 82.5 fL (81.0-99.0); PLATELET 170 x1000/uL (130-400); RED BLOOD CELL COUNT 4.48 mill/uL (4.2-5.4); RED CELL DISTRIBUTION WIDTH 17.5 % (11.6-14.6)
[2021-07-29 07:14] LABS: DIGOXIN 2.1 ng/mL (0.9-2.0)
[2021-07-29] MEDS: BLOOD SUGAR DIAGNOSTIC STRIP TEST SCH ×4 (07:40→20:55)
[2021-07-29 08:00] VITALS: BP 125/57
[2021-07-29] MEDS: FUROSEMIDE 40MG/4ML VIAL IVP SCH (08:10)
[2021-07-29] MEDS: PANTOPRAZOLE SODIUM 40 MG/VIAL IV SCH (08:10)
[2021-07-29] MEDS: CARVEDILOL 3.125 MG TABLET PO SCH ×2 (08:11→20:53)
[2021-07-29] MEDS: POTASSIUM CHLORIDE 10MEQ TABLET SR PO SCH (08:11)
[2021-07-29] MEDS: ASPIRIN 81MG TABLET PO SCH (08:11)
[2021-07-29] MEDS: MIDODRINE HCL 5MG TABLET PO SCH ×3 (08:12→17:35)
[2021-07-29] MEDS: INSULIN LISPRO 100 UNITS/ML SUBCUT SCH ×4 (08:13→21:16)
[2021-07-29] MEDS ORDERED: VANCOMYCIN 1500MG in DEXTROSE 5% WATER 250ML IV NR (09:30)
[2021-07-29] MEDS: CEFEPIME 1,000 MG in DEXTROSE 5% WATER 50 ML IV SCH ×2 (10:05→21:11)
[2021-07-29] MEDS: DOCUSATE SODIUM 100MG CAPSULE PO SCH (10:05)
[2021-07-29 12:00] VITALS: BP 120/57
[2021-07-29 12:27] LABS: BG BASE EXCESS 4.8 mmol/L (-2.0-2.0); BG CARBOXYHEMOGLOBIN 0.6 % (0.5-1.5); BG DEOXYHEMOGLOBIN 3.5 % (0.0-5.0); BG FRACTION INSPIRED OXYGEN 60; BG HCO3 ACT 29.5 mmol/L (22.0-26.0); BG METHEMOGLOBIN 0.1 % (0.0-1.5); BG OXYGEN SATURATION 96.5 % (92.0-98.5); BG OXYHEMOGLOBIN 95.8 % (94.0-97.0); BG PCO2 43.8 mmHg (35.0-45.0); BG PH 7.446 (7.350-7.450); BG PO2 89.6 mmHg (75.0-100.0); BG SAMPLE SITE RIGHT RADIAL; BG TOTAL HEMOGLOBIN 12.6 g/dL (12.0-18.0); BG VENT MODE MASK - SIMPLE
[2021-07-29 13:00] LABS: CLARITY URINE CLEAR (CLEAR); COLOR URINE YELLOW (YELLOW); KETONES URINE NEGATIVE (NEGATIVE); LEUKOCYTE ESTERASE URINE TRACE (NEGATIVE); NITRITE URINE NEGATIVE (NEGATIVE); OCCULT BLOOD URINE NEGATIVE (NEGATIVE); PROTEIN URINE NEGATIVE (NEGATIVE); SPECIFIC GRAVITY URINE 1.012 (1.005-1.030)
[2021-07-29 16:00] VITALS: BP 122/53
[2021-07-29 20:00] VITALS: BP 121/59
[2021-07-29] MEDS: ENOXAPARIN 40MG/0.4ML SYR SUBCUT SCH (20:52)
[2021-07-29] MEDS: ACETAMINOPHEN 650MG/20.3ML UDC PO PRN (20:54)
[2021-07-29] MEDS: ONDANSETRON HCL 4MG/2ML INJ IV PRN (20:54)
[2021-07-29] MEDS ORDERED: ALBUTEROL 6.7GM HFA INHALER ORI PRN (21:15)
[2021-07-29] MEDS: INSULIN GLARGINE UD 100 UNITS/ML SYR SUBCUT SCH (21:17)
[2021-07-29] MEDS: DOXYCYCLINE 100 MG in DEXT 5% WATER 100 ML IV SCH (22:11)
[2021-07-30] VITALS: BP 118/52
[2021-07-30 04:05] LABS: PLATELET ESTIMATE NORMAL
[2021-07-30] MEDS: ACETAMINOPHEN 650MG/20.3ML UDC PO PRN (04:19)
[2021-07-30 04:20] VITALS: BP 128/54
[2021-07-30 05:38] LABS: BASOPHILS % 0.3 % (0.0-2.0); HEMATOCRIT. 36.3 % (36.0-48.0); HEMOGLOBIN. 11.5 g/dL (12.0-16.0); LYMPHOCYTES % 7.7 % (20.0-50.0); MEAN CORPUSCULAR HEMOGLOBIN 26.1 pg (28.0-32.0); MEAN CORPUSCULAR VOLUME 82.7 fL (81.0-99.0); MEAN PLATELET VOLUME 9.4 fl (7.4-10.4); PLATELET 182 x1000/uL (130-400); RED BLOOD CELL COUNT 4.39 mill/uL (4.2-5.4); RED CELL DISTRIBUTION WIDTH 17.2 % (11.6-14.6)
[2021-07-30] MEDS ORDERED: VANCOMYCIN 750 MG PREMIX 150 ML IV SCH (06:00)
[2021-07-30] MEDS: GABAPENTIN 100MG CAPSULE PO SCH ×3 (06:41→21:09)
[2021-07-30] MEDS: BLOOD SUGAR DIAGNOSTIC STRIP TEST SCH ×4 (06:42→21:00)
[2021-07-30] MEDS: INSULIN LISPRO 100 UNITS/ML SUBCUT SCH ×4 (07:25→21:00)
[2021-07-30 08:00] VITALS: BP 115/57
[2021-07-30] MEDS: DOXYCYCLINE 100 MG in DEXT 5% WATER 100 ML IV SCH ×2 (09:10→19:44)
[2021-07-30] MEDS: CARVEDILOL 3.125 MG TABLET PO SCH ×2 (09:11→21:10)
[2021-07-30] MEDS: DOCUSATE SODIUM 100MG CAPSULE PO SCH (09:11)
[2021-07-30] MEDS: FUROSEMIDE 40MG/4ML VIAL IVP SCH (09:11)
[2021-07-30] MEDS: PANTOPRAZOLE SODIUM 40 MG/VIAL IV SCH (09:11)
[2021-07-30] MEDS: POTASSIUM CHLORIDE 10MEQ TABLET SR PO SCH (09:11)
[2021-07-30] MEDS: MIDODRINE HCL 5MG TABLET PO SCH ×3 (09:12→17:23)
[2021-07-30] MEDS: ASPIRIN 81MG TABLET PO SCH (09:12)
[2021-07-30] MEDS: CEFEPIME 1,000 MG in DEXTROSE 5% WATER 50 ML IV SCH ×2 (09:13→21:10)
[2021-07-30 12:00] VITALS: BP 117/52
[2021-07-30 16:00] VITALS: BP 109/57
[2021-07-30 20:00] VITALS: BP 129/49
[2021-07-30] MEDS: ENOXAPARIN 40MG/0.4ML SYR SUBCUT SCH (21:10)
[2021-07-30] MEDS: INSULIN GLARGINE UD 100 UNITS/ML SYR SUBCUT SCH (21:25)
[2021-07-31 00:01] VITALS: BP 112/59
[2021-07-31 04:00] VITALS: BP 115/48
[2021-07-31] MEDS: GABAPENTIN 100MG CAPSULE PO SCH ×3 (05:15→20:29)
[2021-07-31] MEDS: BLOOD SUGAR DIAGNOSTIC STRIP TEST SCH ×4 (05:48→20:29)
[2021-07-31] MEDS: INSULIN LISPRO 100 UNITS/ML SUBCUT SCH ×4 (05:48→20:29)
[2021-07-31 07:00] LABS: BASOPHILS % 0.2 % (0.0-2.0); EOSINOPHILS % 0.1 % (0.0-5.0); HEMATOCRIT. 35.2 % (36.0-48.0); HEMOGLOBIN. 11.1 g/dL (12.0-16.0); LYMPHOCYTES % 15.9 % (20.0-50.0); MEAN CORPUSCULAR HEMOGLOBIN 26.2 pg (28.0-32.0); MEAN PLATELET VOLUME 9.2 fl (7.4-10.4); MONOCYTES % 12.5 % (2.0-8.0); NEUTROPHILS % 71.3 % (40.0-76.0); PLATELET 172 x1000/uL (130-400); RED BLOOD CELL COUNT 4.25 mill/uL (4.2-5.4); RED CELL DISTRIBUTION WIDTH 17.3 % (11.6-14.6)
[2021-07-31 08:00] VITALS: BP 105/57
[2021-07-31] MEDS: DOCUSATE SODIUM 100MG CAPSULE PO SCH (08:39)
[2021-07-31] MEDS: POTASSIUM CHLORIDE 10MEQ TABLET SR PO SCH (08:39)
[2021-07-31] MEDS: MIDODRINE HCL 5MG TABLET PO SCH ×3 (08:39→17:52)
[2021-07-31] MEDS: FUROSEMIDE 40MG/4ML VIAL IVP SCH (08:39)
[2021-07-31] MEDS: DOXYCYCLINE 100 MG in DEXT 5% WATER 100 ML IV SCH ×2 (08:39→20:28)
[2021-07-31] MEDS: CARVEDILOL 3.125 MG TABLET PO SCH ×2 (08:40→20:28)
[2021-07-31] MEDS: ASPIRIN 81MG TABLET PO SCH (08:41)
[2021-07-31] MEDS: PANTOPRAZOLE SODIUM 40 MG/VIAL IV SCH (08:41)
[2021-07-31] MEDS: CEFEPIME 1,000 MG in DEXTROSE 5% WATER 50 ML IV SCH ×2 (10:16→21:02)
[2021-07-31 12:10] VITALS: BP 108/57
[2021-07-31 16:00] VITALS: BP 112/57
[2021-07-31 20:00] VITALS: BP 112/49
[2021-07-31] MEDS: GUAIFENESIN 600MG ER TABLET PO SCH (20:28)
[2021-07-31] MEDS: ENOXAPARIN 40MG/0.4ML SYR SUBCUT SCH (20:29)
[2021-07-31] MEDS: INSULIN GLARGINE UD 100 UNITS/ML SYR SUBCUT SCH (21:03)
[2021-08-01] VITALS: BP 110/48
[2021-08-01 04:01] VITALS: BP 95/56
[2021-08-01] MEDS: GABAPENTIN 100MG CAPSULE PO SCH ×3 (05:15→21:29)
[2021-08-01] MEDS: INSULIN LISPRO 100 UNITS/ML SUBCUT SCH ×4 (06:06→21:00)
[2021-08-01] MEDS: BLOOD SUGAR DIAGNOSTIC STRIP TEST SCH ×4 (06:06→21:26)
[2021-08-01 06:54] LABS: BASOPHILS % 0.4 % (0.0-2.0); EOSINOPHILS % 1.4 % (0.0-5.0); HEMATOCRIT. 34.4 % (36.0-48.0); HEMOGLOBIN. 10.8 g/dL (12.0-16.0); LYMPHOCYTES % 18.2 % (20.0-50.0); MEAN CORPUSCULAR HEMOGLOBIN 25.8 pg (28.0-32.0); MEAN CORPUSCULAR VOLUME 82.6 fL (81.0-99.0); MEAN PLATELET VOLUME 9.3 fl (7.4-10.4); MONOCYTES % 12.6 % (2.0-8.0); NEUTROPHILS % 67.4 % (40.0-76.0); PLATELET 189 x1000/uL (130-400); RED BLOOD CELL COUNT 4.16 mill/uL (4.2-5.4); RED CELL DISTRIBUTION WIDTH 17.4 % (11.6-14.6)
[2021-08-01 06:59] LABS: CHLORIDE 105 mEq/L (98-107)
[2021-08-01 08:00] VITALS: BP 109/51
[2021-08-01] MEDS: CARVEDILOL 3.125 MG TABLET PO SCH ×2 (09:00→21:26)
[2021-08-01] MEDS: ASPIRIN 81MG TABLET PO SCH (09:04)
[2021-08-01] MEDS: MIDODRINE HCL 5MG TABLET PO SCH ×3 (09:05→18:00)
[2021-08-01] MEDS: GUAIFENESIN 600MG ER TABLET PO SCH ×2 (09:05→21:26)
[2021-08-01] MEDS: DOCUSATE SODIUM 100MG CAPSULE PO SCH (09:05)
[2021-08-01] MEDS: FUROSEMIDE 40MG/4ML VIAL IVP SCH (09:05)
[2021-08-01] MEDS: DOXYCYCLINE 100 MG in DEXT 5% WATER 100 ML IV SCH ×2 (09:06→23:15)
[2021-08-01] MEDS: PANTOPRAZOLE SODIUM 40 MG/VIAL IV SCH (09:06)
[2021-08-01] MEDS: POTASSIUM CHLORIDE 10MEQ TABLET SR PO SCH (09:07)
[2021-08-01] MEDS: CEFEPIME 1,000 MG in DEXTROSE 5% WATER 50 ML IV SCH ×2 (10:29→23:15)
[2021-08-01 12:00] VITALS: BP 108/57
[2021-08-01 16:00] VITALS: BP 103/55
[2021-08-01 20:00] VITALS: BP 112/55
[2021-08-01] MEDS ORDERED: DEXAMETHASONE 10 MG/ML VIAL IV NR (20:15)
[2021-08-01] MEDS: ENOXAPARIN 40MG/0.4ML SYR SUBCUT SCH (21:25)
[2021-08-01] MEDS: INSULIN GLARGINE UD 100 UNITS/ML SYR SUBCUT SCH (21:32)
[2021-08-01] MEDS: ONDANSETRON HCL 4MG/2ML INJ IV PRN (21:47)
[2021-08-02 04:00] VITALS: BP 118/58
[2021-08-02] MEDS: GABAPENTIN 100MG CAPSULE PO SCH ×3 (06:15→20:55)
[2021-08-02] MEDS ORDERED: METOLAZONE 2.5MG TABLET PO NR (06:30)
[2021-08-02 08:00] VITALS: BP 119/62
[2021-08-02] MEDS: INSULIN LISPRO 100 UNITS/ML SUBCUT SCH ×4 (08:13→20:56)
[2021-08-02] MEDS: DOCUSATE SODIUM 100MG CAPSULE PO SCH (08:14)
[2021-08-02] MEDS: POTASSIUM CHLORIDE 20MEQ TABLET SR PO SCH (08:14)
[2021-08-02] MEDS: MIDODRINE HCL 5MG TABLET PO SCH ×3 (08:14→17:32)
[2021-08-02] MEDS: CARVEDILOL 3.125 MG TABLET PO SCH ×2 (08:14→20:55)
[2021-08-02] MEDS: ASPIRIN 81MG TABLET PO SCH (08:14)
[2021-08-02] MEDS: DOXYCYCLINE 100 MG in DEXT 5% WATER 100 ML IV SCH ×2 (08:15→20:53)
[2021-08-02] MEDS: FUROSEMIDE 40MG/4ML VIAL IVP SCH (08:15)
[2021-08-02] MEDS: GUAIFENESIN 600MG ER TABLET PO SCH ×2 (08:15→20:55)
[2021-08-02] MEDS: BLOOD SUGAR DIAGNOSTIC STRIP TEST SCH ×4 (08:15→20:57)
[2021-08-02] MEDS: PANTOPRAZOLE SODIUM 40 MG/VIAL IV SCH (08:15)
[2021-08-02 09:22] LABS: BASOPHILS % 0.3 % (0.0-2.0); HEMATOCRIT. 36.6 % (36.0-48.0); HEMOGLOBIN. 11.3 g/dL (12.0-16.0); LYMPHOCYTES % 15.5 % (20.0-50.0); MEAN CORPUSCULAR HEMOGLOBIN 26.2 pg (28.0-32.0); MEAN CORPUSCULAR VOLUME 84.4 fL (81.0-99.0); MEAN PLATELET VOLUME 9.7 fl (7.4-10.4); MONOCYTES % 7.1 % (2.0-8.0); NEUTROPHILS % 77.1 % (40.0-76.0); PLATELET 212 x1000/uL (130-400); RED BLOOD CELL COUNT 4.33 mill/uL (4.2-5.4)
[2021-08-02] MEDS: CEFEPIME 1,000 MG in DEXTROSE 5% WATER 50 ML IV SCH ×2 (09:53→20:53)
[2021-08-02 10:02] LABS: CHLORIDE 103 mEq/L (98-107)
[2021-08-02 12:00] VITALS: BP 130/66
[2021-08-02] MEDS: DEXAMETHASONE 4MG/ML 1ML VIAL IV SCH (14:45)
[2021-08-02 16:00] VITALS: BP 127/66
[2021-08-02] MEDS: FUROSEMIDE 100MG/10ML VIAL IVP SCH (17:33)
[2021-08-02 20:00] VITALS: BP 132/72
[2021-08-02] MEDS: ENOXAPARIN 40MG/0.4ML SYR SUBCUT SCH (20:54)
[2021-08-02] MEDS: INSULIN GLARGINE UD 100 UNITS/ML SYR SUBCUT SCH (20:57)
[2021-08-03] VITALS: BP 126/68
[2021-08-03 04:00] VITALS: BP 112/66
[2021-08-03] MEDS: GABAPENTIN 100MG CAPSULE PO SCH ×3 (05:21→22:18)
[2021-08-03] MEDS: BLOOD SUGAR DIAGNOSTIC STRIP TEST SCH ×4 (05:25→21:00)
[2021-08-03] MEDS: INSULIN LISPRO 100 UNITS/ML SUBCUT SCH ×4 (05:28→22:17)
[2021-08-03 08:00] VITALS: BP 121/70
[2021-08-03] MEDS: DOXYCYCLINE 100 MG in DEXT 5% WATER 100 ML IV SCH ×2 (08:31→22:16)
[2021-08-03] MEDS: POTASSIUM CHLORIDE 20MEQ TABLET SR PO SCH (09:03)
[2021-08-03] MEDS: DOCUSATE SODIUM 100MG CAPSULE PO SCH (09:03)
[2021-08-03] MEDS: GUAIFENESIN 600MG ER TABLET PO SCH ×2 (09:03→22:17)
[2021-08-03] MEDS: ASPIRIN 81MG TABLET PO SCH (09:03)
[2021-08-03] MEDS: MIDODRINE HCL 5MG TABLET PO SCH ×3 (09:04→17:21)
[2021-08-03] MEDS: CARVEDILOL 3.125 MG TABLET PO SCH ×2 (09:04→22:18)
[2021-08-03] MEDS ORDERED: LIDOCAINE HCL 1% 30ML VIAL (10MG/ML) ONE (09:05)
[2021-08-03] MEDS: PANTOPRAZOLE SODIUM 40 MG/VIAL IV SCH (09:05)
[2021-08-03] MEDS: DEXAMETHASONE 4MG/ML 1ML VIAL IV SCH (09:05)
[2021-08-03] MEDS: FUROSEMIDE 100MG/10ML VIAL IVP SCH ×2 (09:05→17:21)
[2021-08-03] MEDS: CEFEPIME 1,000 MG in DEXTROSE 5% WATER 50 ML IV SCH (09:06)
[2021-08-03 12:00] VITALS: BP 127/68
[2021-08-03 16:00] VITALS: BP 122/65
[2021-08-03 20:00] VITALS: BP 126/68
[2021-08-03] MEDS ORDERED: INSULIN GLARGINE UD 100 UNITS/ML SYR SUBCUT SCH (22:00)
[2021-08-03] MEDS: ENOXAPARIN 40MG/0.4ML SYR SUBCUT SCH (22:16)
[2021-08-04 04:00] VITALS: BP 122/66
[2021-08-04] MEDS: GABAPENTIN 100MG CAPSULE PO SCH ×3 (05:50→21:15)
[2021-08-04] MEDS: BLOOD SUGAR DIAGNOSTIC STRIP TEST SCH ×4 (07:41→21:17)
[2021-08-04 08:00] VITALS: BP 121/64
[2021-08-04] MEDS: GUAIFENESIN 600MG ER TABLET PO SCH ×2 (08:38→21:16)
[2021-08-04] MEDS: ASPIRIN 81MG TABLET PO SCH (08:38)
[2021-08-04] MEDS: DOCUSATE SODIUM 100MG CAPSULE PO SCH (08:38)
[2021-08-04] MEDS: POTASSIUM CHLORIDE 20MEQ TABLET SR PO SCH (08:39)
[2021-08-04] MEDS: MIDODRINE HCL 5MG TABLET PO SCH ×3 (08:39→17:00)
[2021-08-04] MEDS: CARVEDILOL 3.125 MG TABLET PO SCH ×2 (08:39→21:16)
[2021-08-04] MEDS: FUROSEMIDE 100MG/10ML VIAL IVP SCH ×2 (08:39→17:00)
[2021-08-04] MEDS: INSULIN LISPRO 100 UNITS/ML SUBCUT SCH ×4 (08:40→21:17)
[2021-08-04] MEDS: DEXAMETHASONE 4MG/ML 1ML VIAL IV SCH (08:40)
[2021-08-04] MEDS: PANTOPRAZOLE SODIUM 40 MG/VIAL IV SCH (08:43)
[2021-08-04 12:00] VITALS: BP 129/72
[2021-08-04 16:00] VITALS: BP 122/67
[2021-08-04 20:00] VITALS: BP 124/71
[2021-08-04] MEDS: ENOXAPARIN 40MG/0.4ML SYR SUBCUT SCH (21:15)
[2021-08-04] MEDS: INSULIN GLARGINE UD 100 UNITS/ML SYR SUBCUT SCH (21:17)
[2021-08-05] VITALS: BP 121/67
[2021-08-05 04:00] VITALS: BP 116/71
[2021-08-05 06:35] LABS: BASOPHILS % 0.2 % (0.0-2.0); HEMATOCRIT. 37.5 % (36.0-48.0); LYMPHOCYTES % 15.3 % (20.0-50.0); MEAN CORPUSCULAR VOLUME 81.4 fL (81.0-99.0); MEAN PLATELET VOLUME 9.6 fl (7.4-10.4); MONOCYTES % 11.1 % (2.0-8.0); NEUTROPHILS % 73.4 % (40.0-76.0); PLATELET 349 x1000/uL (130-400); RED CELL DISTRIBUTION WIDTH 17.1 % (11.6-14.6)
[2021-08-05] MEDS: GABAPENTIN 100MG CAPSULE PO SCH ×3 (06:40→21:00)
[2021-08-05] MEDS: BLOOD SUGAR DIAGNOSTIC STRIP TEST SCH ×4 (06:40→20:48)
[2021-08-05 08:00] VITALS: BP 113/80
[2021-08-05] MEDS: FUROSEMIDE 100MG/10ML VIAL IVP SCH ×2 (08:32→16:29)
[2021-08-05] MEDS: PANTOPRAZOLE SODIUM 40 MG/VIAL IV SCH (08:32)
[2021-08-05] MEDS: MIDODRINE HCL 5MG TABLET PO SCH ×3 (08:33→16:30)
[2021-08-05] MEDS: ASPIRIN 81MG TABLET PO SCH (08:33)
[2021-08-05] MEDS: DEXAMETHASONE 4MG/ML 1ML VIAL IV SCH (08:33)
[2021-08-05] MEDS: DOCUSATE SODIUM 100MG CAPSULE PO SCH (08:33)
[2021-08-05] MEDS: GUAIFENESIN 600MG ER TABLET PO SCH ×2 (08:34→21:00)
[2021-08-05] MEDS: POTASSIUM CHLORIDE 10MEQ TABLET SR PO SCH (08:34)
[2021-08-05] MEDS: CARVEDILOL 3.125 MG TABLET PO SCH ×2 (08:34→21:00)
[2021-08-05] MEDS: INSULIN LISPRO 100 UNITS/ML SUBCUT SCH ×4 (08:35→20:59)
[2021-08-05 12:00] VITALS: BP 125/62
[2021-08-05 13:33] LABS: T4 FREE 0.78 ng/dL (0.76-1.46)
[2021-08-05 16:00] VITALS: BP 123/67
[2021-08-05 20:00] VITALS: BP 102/54
[2021-08-05] MEDS: ENOXAPARIN 40MG/0.4ML SYR SUBCUT SCH (20:59)
[2021-08-05] MEDS: INSULIN GLARGINE UD 100 UNITS/ML SYR SUBCUT SCH (21:02)
[2021-08-06] VITALS: BP 110/60
[2021-08-06 04:00] VITALS: BP 121/66
[2021-08-06] MEDS: GABAPENTIN 100MG CAPSULE PO SCH ×3 (06:10→22:01)
[2021-08-06] MEDS: BLOOD SUGAR DIAGNOSTIC STRIP TEST SCH ×4 (06:12→21:59)
[2021-08-06] MEDS: INSULIN LISPRO 100 UNITS/ML SUBCUT SCH ×4 (06:19→21:58)
[2021-08-06 07:35] LABS: BASOPHILS % 0.2 % (0.0-2.0); EOSINOPHILS % 0.1 % (0.0-5.0); HEMATOCRIT. 37.3 % (36.0-48.0); HEMOGLOBIN. 12.1 g/dL (12.0-16.0); LYMPHOCYTES % 18.3 % (20.0-50.0); MEAN CORPUSCULAR HEMOGLOBIN 26.2 pg (28.0-32.0); MEAN CORPUSCULAR VOLUME 81.2 fL (81.0-99.0); MEAN PLATELET VOLUME 9.7 fl (7.4-10.4); MONOCYTES % 10.5 % (2.0-8.0); NEUTROPHILS % 70.9 % (40.0-76.0); PLATELET 368 x1000/uL (130-400); RED CELL DISTRIBUTION WIDTH 16.9 % (11.6-14.6)
[2021-08-06 07:37] LABS: CHLORIDE 101 mEq/L (98-107)
[2021-08-06 08:00] VITALS: BP 115/71
[2021-08-06] MEDS: CARVEDILOL 3.125 MG TABLET PO SCH ×2 (08:50→22:02)
[2021-08-06] MEDS: DEXAMETHASONE 4MG/ML 1ML VIAL IV SCH (08:51)
[2021-08-06] MEDS: POTASSIUM CHLORIDE 10MEQ TABLET SR PO SCH (08:51)
[2021-08-06] MEDS: FUROSEMIDE 100MG/10ML VIAL IVP SCH ×2 (08:51→16:55)
[2021-08-06] MEDS: MIDODRINE HCL 5MG TABLET PO SCH ×3 (08:51→17:00)
[2021-08-06] MEDS: DOCUSATE SODIUM 100MG CAPSULE PO SCH (08:51)
[2021-08-06] MEDS: ASPIRIN 81MG TABLET PO SCH (08:51)
[2021-08-06] MEDS: PANTOPRAZOLE SODIUM 40 MG/VIAL IV SCH (08:51)
[2021-08-06 12:00] VITALS: BP 108/55
[2021-08-06] MEDS: GUAIFENESIN 600MG ER TABLET PO SCH ×2 (12:12→21:57)
[2021-08-06 16:00] VITALS: BP 124/61
[2021-08-06 20:00] VITALS: BP 118/63
[2021-08-06] MEDS: ENOXAPARIN 40MG/0.4ML SYR SUBCUT SCH (21:57)
[2021-08-06] MEDS: INSULIN GLARGINE UD 100 UNITS/ML SYR SUBCUT SCH (21:58)
[2021-08-07] VITALS: BP 126/70
[2021-08-07 04:00] VITALS: BP 120/68
[2021-08-07] MEDS: BLOOD SUGAR DIAGNOSTIC STRIP TEST SCH ×4 (06:41→21:51)
[2021-08-07] MEDS: GABAPENTIN 100MG CAPSULE PO SCH ×3 (06:46→21:50)
[2021-08-07] MEDS: INSULIN LISPRO 100 UNITS/ML SUBCUT SCH ×4 (06:46→21:50)
[2021-08-07 08:00] VITALS: BP 111/66
[2021-08-07] MEDS: FUROSEMIDE 100MG/10ML VIAL IVP SCH ×2 (09:11→17:08)
[2021-08-07] MEDS: PANTOPRAZOLE SODIUM 40 MG/VIAL IV SCH (09:11)
[2021-08-07] MEDS: DEXAMETHASONE 4MG/ML 1ML VIAL IV SCH (09:12)
[2021-08-07] MEDS: ASPIRIN 81MG TABLET PO SCH (09:12)
[2021-08-07] MEDS: DOCUSATE SODIUM 100MG CAPSULE PO SCH (09:12)
[2021-08-07] MEDS: POTASSIUM CHLORIDE 10MEQ TABLET SR PO SCH (09:13)
[2021-08-07] MEDS: CARVEDILOL 3.125 MG TABLET PO SCH ×2 (09:13→21:51)
[2021-08-07] MEDS: MIDODRINE HCL 5MG TABLET PO SCH ×3 (09:13→17:08)
[2021-08-07] MEDS: GUAIFENESIN 600MG ER TABLET PO SCH ×2 (09:14→21:50)
[2021-08-07 12:00] VITALS: BP 115/72
[2021-08-07 16:00] VITALS: BP 109/58
[2021-08-07 20:00] VITALS: BP 115/53
[2021-08-07] MEDS: ENOXAPARIN 40MG/0.4ML SYR SUBCUT SCH (21:51)
[2021-08-07] MEDS ORDERED: INSULIN GLARGINE UD 100 UNITS/ML SYR SUBCUT SCH (22:00)
[2021-08-08] VITALS: BP 116/71
[2021-08-08] MEDS: LACTULOSE 20G/30ML UDC PO PRN (01:39)
[2021-08-08 04:00] VITALS: BP 109/57
[2021-08-08] MEDS: IPRATROPIUM/ALBUTEROL 0.5-3(2.5)MG/3ML NEB HHN PRN ×3 (05:04→13:04)
[2021-08-08] MEDS: BLOOD SUGAR DIAGNOSTIC STRIP TEST SCH ×4 (06:49→20:08)
[2021-08-08] MEDS: GABAPENTIN 100MG CAPSULE PO SCH ×3 (06:49→21:02)
[2021-08-08 06:51] LABS: BASOPHILS % 0.2 % (0.0-2.0); EOSINOPHILS % 0.3 % (0.0-5.0); HEMATOCRIT. 39.3 % (36.0-48.0); HEMOGLOBIN. 12.4 g/dL (12.0-16.0); LYMPHOCYTES % 14.9 % (20.0-50.0); MEAN CORPUSCULAR VOLUME 82.5 fL (81.0-99.0); MEAN PLATELET VOLUME 9.6 fl (7.4-10.4); MONOCYTES % 8.1 % (2.0-8.0); NEUTROPHILS % 76.5 % (40.0-76.0); PLATELET 371 x1000/uL (130-400); RED BLOOD CELL COUNT 4.76 mill/uL (4.2-5.4); RED CELL DISTRIBUTION WIDTH 17.5 % (11.6-14.6)
[2021-08-08 07:23] LABS: BG BASE EXCESS 7.8 mmol/L (-2.0-2.0); BG CARBOXYHEMOGLOBIN 0.4 % (0.5-1.5); BG DEOXYHEMOGLOBIN 11.9 % (0.0-5.0); BG HCO3 ACT 31.7 mmol/L (22.0-26.0); BG METHEMOGLOBIN 0.3 % (0.0-1.5); BG OXYHEMOGLOBIN 87.4 % (94.0-97.0); BG PCO2 41.8 mmHg (35.0-45.0); BG PH 7.498 (7.350-7.450); BG PO2 55.6 mmHg (75.0-100.0); BG SAMPLE SITE LEFT RADIAL; BG TOTAL HEMOGLOBIN 13.3 g/dL (12.0-18.0); BG VENT MODE MASK - SIMPLE
[2021-08-08] MEDS: INSULIN LISPRO 100 UNITS/ML SUBCUT SCH ×4 (07:29→20:08)
[2021-08-08 08:00] VITALS: BP 112/64
[2021-08-08] MEDS: FUROSEMIDE 100MG/10ML VIAL IVP SCH ×2 (09:09→16:38)
[2021-08-08] MEDS: ASPIRIN 81MG TABLET PO SCH (09:09)
[2021-08-08] MEDS: DEXAMETHASONE 4MG/ML 1ML VIAL IV SCH (09:09)
[2021-08-08] MEDS: PANTOPRAZOLE SODIUM 40 MG/VIAL IV SCH (09:09)
[2021-08-08] MEDS: POTASSIUM CHLORIDE 10MEQ TABLET SR PO SCH (09:10)
[2021-08-08] MEDS: MIDODRINE HCL 5MG TABLET PO SCH ×3 (09:10→16:37)
[2021-08-08] MEDS: CARVEDILOL 3.125 MG TABLET PO SCH ×2 (09:11→20:06)
[2021-08-08] MEDS: GUAIFENESIN 600MG ER TABLET PO SCH ×2 (09:11→20:09)
[2021-08-08] MEDS: DOCUSATE SODIUM 100MG CAPSULE PO SCH (09:11)
[2021-08-08 12:00] VITALS: BP 102/58
[2021-08-08] MEDS ORDERED: IPRATROPIUM/ALBUTEROL 0.5-3(2.5)MG/3ML NEB HHN PRN (13:30)
[2021-08-08] MEDS ORDERED: ACETAZOLAMIDE SODIUM 500MG/VIAL IV SCH (15:00)
[2021-08-08 16:00] VITALS: BP 112/56
[2021-08-08] MEDS: METHYLPREDNISOLONE SOD SUCC 40 MG/ML VIAL IV SCH ×2 (16:38→21:12)
[2021-08-08] MEDS: IPRATROPIUM/ALBUTEROL 0.5-3(2.5)MG/3ML NEB HHN SCH (17:44)
[2021-08-08 20:00] VITALS: BP 99/76
[2021-08-08] MEDS: ENOXAPARIN 40MG/0.4ML SYR SUBCUT SCH (20:09)
[2021-08-08] MEDS ORDERED: INSULIN GLARGINE UD 100 UNITS/ML SYR SUBCUT SCH (22:00)
[2021-08-09] VITALS: BP 108/66
[2021-08-09 04:00] VITALS: BP 111/61
[2021-08-09] MEDS: METHYLPREDNISOLONE SOD SUCC 40 MG/ML VIAL IV SCH ×3 (05:11→21:05)
[2021-08-09] MEDS: GABAPENTIN 100MG CAPSULE PO SCH ×3 (05:11→21:06)
[2021-08-09] MEDS: BLOOD SUGAR DIAGNOSTIC STRIP TEST SCH ×4 (05:43→21:08)
[2021-08-09] MEDS: INSULIN LISPRO 100 UNITS/ML SUBCUT SCH ×4 (06:14→21:08)
[2021-08-09] MEDS: ASPIRIN 81MG TABLET PO SCH (08:59)
[2021-08-09] MEDS: FUROSEMIDE 100MG/10ML VIAL IVP SCH ×2 (08:59→17:42)
[2021-08-09] MEDS: DOCUSATE SODIUM 100MG CAPSULE PO SCH (08:59)
[2021-08-09] MEDS: PANTOPRAZOLE SODIUM 40 MG/VIAL IV SCH (08:59)
[2021-08-09] MEDS: CARVEDILOL 3.125 MG TABLET PO SCH ×2 (09:00→21:00)
[2021-08-09] MEDS: MIDODRINE HCL 5MG TABLET PO SCH ×3 (09:00→17:42)
[2021-08-09] MEDS: GUAIFENESIN 600MG ER TABLET PO SCH ×2 (09:03→21:06)
[2021-08-09] MEDS: POTASSIUM CHLORIDE 10MEQ TABLET SR PO SCH (09:03)
[2021-08-09] MEDS: IPRATROPIUM/ALBUTEROL 0.5-3(2.5)MG/3ML NEB HHN SCH ×4 (10:12→21:07)
[2021-08-09 12:00] VITALS: BP 105/74
[2021-08-09 16:00] VITALS: BP 109/66
[2021-08-09 20:00] VITALS: BP 100/65
[2021-08-09] MEDS: ENOXAPARIN 40MG/0.4ML SYR SUBCUT SCH (21:05)
[2021-08-09] MEDS ORDERED: INSULIN GLARGINE UD 100 UNITS/ML SYR SUBCUT SCH (22:00)
[2021-08-10] VITALS (8 sets, daily range): BP systolic 98–124; BP diastolic 51–59
[2021-08-10] MEDS: IPRATROPIUM/ALBUTEROL 0.5-3(2.5)MG/3ML NEB HHN SCH ×6 (01:10→21:50)
[2021-08-10] MEDS: METHYLPREDNISOLONE SOD SUCC 40 MG/ML VIAL IV SCH ×3 (05:38→21:22)
[2021-08-10] MEDS: GABAPENTIN 100MG CAPSULE PO SCH ×3 (05:38→21:22)
[2021-08-10] MEDS: BLOOD SUGAR DIAGNOSTIC STRIP TEST SCH ×4 (05:44→21:24)
[2021-08-10] MEDS: INSULIN LISPRO 100 UNITS/ML SUBCUT SCH ×4 (06:15→21:24)
[2021-08-10 06:32] LABS: BASOPHILS % 0.1 % (0.0-2.0); HEMATOCRIT. 39.2 % (36.0-48.0); HEMOGLOBIN. 12.6 g/dL (12.0-16.0); LYMPHOCYTES % 7.4 % (20.0-50.0); MEAN CORPUSCULAR HEMOGLOBIN 26.4 pg (28.0-32.0); MEAN CORPUSCULAR VOLUME 82.3 fL (81.0-99.0); MEAN PLATELET VOLUME 9.7 fl (7.4-10.4); MONOCYTES % 3.1 % (2.0-8.0); NEUTROPHILS % 89.4 % (40.0-76.0); PLATELET 310 x1000/uL (130-400); RED BLOOD CELL COUNT 4.77 mill/uL (4.2-5.4); RED CELL DISTRIBUTION WIDTH 17.6 % (11.6-14.6)
[2021-08-10 06:50] LABS: CHLORIDE 101 mEq/L (98-107)
[2021-08-10] MEDS: FUROSEMIDE 100MG/10ML VIAL IVP SCH (08:16)
[2021-08-10] MEDS: DOCUSATE SODIUM 100MG CAPSULE PO SCH (08:16)
[2021-08-10] MEDS: ASPIRIN 81MG TABLET PO SCH (08:16)
[2021-08-10] MEDS: PANTOPRAZOLE SODIUM 40 MG/VIAL IV SCH (08:16)
[2021-08-10] MEDS: POTASSIUM CHLORIDE 10MEQ TABLET SR PO SCH (08:16)
[2021-08-10] MEDS: MIDODRINE HCL 5MG TABLET PO SCH ×3 (08:17→17:07)
[2021-08-10] MEDS: CARVEDILOL 3.125 MG TABLET PO SCH ×2 (08:17→21:00)
[2021-08-10] MEDS: GUAIFENESIN 600MG ER TABLET PO SCH ×2 (08:17→21:22)
[2021-08-10 09:57] LABS: BG CARBOXYHEMOGLOBIN 0.4 % (0.5-1.5); BG DEOXYHEMOGLOBIN 3.9 % (0.0-5.0); BG FRACTION INSPIRED OXYGEN 60; BG HCO3 ACT 26.5 mmol/L (22.0-26.0); BG METHEMOGLOBIN 0.1 % (0.0-1.5); BG OXYGEN SATURATION 96.1 % (92.0-98.5); BG OXYHEMOGLOBIN 95.6 % (94.0-97.0); BG PCO2 36.8 mmHg (35.0-45.0); BG PH 7.475 (7.350-7.450); BG PO2 90.5 mmHg (75.0-100.0); BG SAMPLE SITE RIGHT RADIAL; BG TOTAL HEMOGLOBIN 13.5 g/dL (12.0-18.0); BG VENT MODE MASK - SIMPLE
[2021-08-10] MEDS: INSULIN GLARGINE UD 100 UNITS/ML SYR SUBCUT SCH ×2 (12:31→23:24)
[2021-08-10 16:26] LABS: PROTHROMBIN TIME 10.9 sec (9.6-11.0)
[2021-08-10] MEDS: ENOXAPARIN 80MG/0.8ML SYR SUBCUT SCH (17:07)
[2021-08-11 04:00] VITALS: BP 100/62
[2021-08-11] MEDS: IPRATROPIUM/ALBUTEROL 0.5-3(2.5)MG/3ML NEB HHN SCH ×5 (05:20→20:58)
[2021-08-11] MEDS: METHYLPREDNISOLONE SOD SUCC 40 MG/ML VIAL IV SCH ×3 (06:10→21:10)
[2021-08-11] MEDS: GABAPENTIN 100MG CAPSULE PO SCH ×3 (06:10→21:10)
[2021-08-11] MEDS: BLOOD SUGAR DIAGNOSTIC STRIP TEST SCH ×4 (06:11→21:13)
[2021-08-11] MEDS: ENOXAPARIN 80MG/0.8ML SYR SUBCUT SCH ×2 (06:11→17:08)
[2021-08-11 06:20] LABS: HEMATOCRIT. 37.9 % (36.0-48.0); HEMOGLOBIN. 11.8 g/dL (12.0-16.0); MEAN CORPUSCULAR HEMOGLOBIN 25.7 pg (28.0-32.0); MEAN CORPUSCULAR VOLUME 82.6 fL (81.0-99.0); MEAN PLATELET VOLUME 9.9 fl (7.4-10.4); PLATELET 313 x1000/uL (130-400); RED BLOOD CELL COUNT 4.59 mill/uL (4.2-5.4)
[2021-08-11] MEDS: INSULIN LISPRO 100 UNITS/ML SUBCUT SCH ×4 (06:30→21:11)
[2021-08-11 08:00] VITALS: BP 95/52
[2021-08-11] MEDS: CARVEDILOL 3.125 MG TABLET PO SCH ×2 (09:00→21:00)
[2021-08-11] MEDS ORDERED: FUROSEMIDE 40MG/4ML VIAL IVP SCH (09:00)
[2021-08-11] MEDS: POTASSIUM CHLORIDE 10MEQ TABLET SR PO SCH (09:28)
[2021-08-11] MEDS: DOCUSATE SODIUM 100MG CAPSULE PO SCH (09:28)
[2021-08-11] MEDS: MIDODRINE HCL 5MG TABLET PO SCH ×3 (09:28→16:57)
[2021-08-11] MEDS: ASPIRIN 81MG TABLET PO SCH (09:28)
[2021-08-11] MEDS: GUAIFENESIN 600MG ER TABLET PO SCH ×2 (09:28→21:10)
[2021-08-11] MEDS: PANTOPRAZOLE SODIUM 40 MG/VIAL IV SCH (09:29)
[2021-08-11] MEDS: INSULIN GLARGINE UD 100 UNITS/ML SYR SUBCUT SCH ×2 (09:30→22:16)
[2021-08-11 12:00] VITALS: BP 106/67
[2021-08-11 16:00] VITALS: BP 108/73
[2021-08-11 17:37] LABS: PLATELET ESTIMATE NORMAL
[2021-08-11 20:00] VITALS: BP 84/60
[2021-08-12] VITALS: BP 90/72
[2021-08-12] MEDS: IPRATROPIUM/ALBUTEROL 0.5-3(2.5)MG/3ML NEB HHN SCH ×6 (01:11→20:59)
[2021-08-12 04:00] VITALS: BP 128/68
[2021-08-12] MEDS: BLOOD SUGAR DIAGNOSTIC STRIP TEST SCH ×4 (05:40→20:53)
[2021-08-12] MEDS: METHYLPREDNISOLONE SOD SUCC 40 MG/ML VIAL IV SCH ×3 (05:47→22:12)
[2021-08-12] MEDS: ENOXAPARIN 80MG/0.8ML SYR SUBCUT SCH ×2 (05:48→17:18)
[2021-08-12] MEDS: GABAPENTIN 100MG CAPSULE PO SCH ×3 (05:48→22:12)
[2021-08-12] MEDS: INSULIN LISPRO 100 UNITS/ML SUBCUT SCH ×6 (05:52→21:10)
[2021-08-12 08:00] VITALS: BP 136/76
[2021-08-12] MEDS: FUROSEMIDE 20MG/2ML VIAL IVP SCH (08:27)
[2021-08-12] MEDS: PANTOPRAZOLE SODIUM 40 MG/VIAL IV SCH (08:27)
[2021-08-12] MEDS: CARVEDILOL 3.125 MG TABLET PO SCH ×2 (08:28→20:54)
[2021-08-12] MEDS: ASPIRIN 81MG TABLET PO SCH (08:28)
[2021-08-12] MEDS: MIDODRINE HCL 5MG TABLET PO SCH ×3 (08:29→17:22)
[2021-08-12] MEDS: GUAIFENESIN 600MG ER TABLET PO SCH ×2 (08:29→21:12)
[2021-08-12] MEDS: POTASSIUM CHLORIDE 10MEQ TABLET SR PO SCH (08:29)
[2021-08-12] MEDS: DOCUSATE SODIUM 100MG CAPSULE PO SCH (08:29)
[2021-08-12 09:34] LABS: HEMATOCRIT. 36.6 % (36.0-48.0); HEMOGLOBIN. 11.6 g/dL (12.0-16.0); MEAN CORPUSCULAR HEMOGLOBIN 26.2 pg (28.0-32.0); MEAN CORPUSCULAR VOLUME 82.8 fL (81.0-99.0); PLATELET 264 x1000/uL (130-400); RED BLOOD CELL COUNT 4.42 mill/uL (4.2-5.4)
[2021-08-12 12:00] VITALS: BP 112/73
[2021-08-12 16:00] VITALS: BP 106/70
[2021-08-12 18:01] LABS: D-DIMER 0.6 mg/L FEU (<0.50); PROTHROMBIN TIME 11.1 sec (9.6-11.0)
[2021-08-12 20:00] VITALS: BP 119/74
[2021-08-12] MEDS: INSULIN GLARGINE UD 100 UNITS/ML SYR SUBCUT SCH (22:13)
[2021-08-12 23:47] LABS: PLATELET ESTIMATE NORMAL
[2021-08-13] VITALS: BP 119/62
[2021-08-13] MEDS: IPRATROPIUM/ALBUTEROL 0.5-3(2.5)MG/3ML NEB HHN SCH ×6 (00:52→21:08)
[2021-08-13 04:00] VITALS: BP 93/63
[2021-08-13] MEDS: METHYLPREDNISOLONE SOD SUCC 40 MG/ML VIAL IV SCH ×2 (05:52→17:04)
[2021-08-13] MEDS: BLOOD SUGAR DIAGNOSTIC STRIP TEST SCH ×4 (05:52→21:00)
[2021-08-13] MEDS: GABAPENTIN 100MG CAPSULE PO SCH ×3 (05:52→21:39)
[2021-08-13] MEDS: ENOXAPARIN 80MG/0.8ML SYR SUBCUT SCH ×2 (05:52→17:05)
[2021-08-13] MEDS: INSULIN LISPRO 100 UNITS/ML SUBCUT SCH ×7 (06:12→21:40)
[2021-08-13 06:48] LABS: HEMATOCRIT. 35.1 % (36.0-48.0); HEMOGLOBIN. 11.2 g/dL (12.0-16.0); MEAN CORPUSCULAR HEMOGLOBIN 26.2 pg (28.0-32.0); MEAN CORPUSCULAR VOLUME 82.2 fL (81.0-99.0); MEAN PLATELET VOLUME 10.1 fl (7.4-10.4); PLATELET 224 x1000/uL (130-400); RED BLOOD CELL COUNT 4.27 mill/uL (4.2-5.4); RED CELL DISTRIBUTION WIDTH 18.3 % (11.6-14.6)
[2021-08-13 08:00] VITALS: BP 111/73
[2021-08-13] MEDS: CARVEDILOL 3.125 MG TABLET PO SCH ×2 (08:59→21:00)
[2021-08-13] MEDS: DOCUSATE SODIUM 100MG CAPSULE PO SCH (08:59)
[2021-08-13] MEDS: GUAIFENESIN 600MG ER TABLET PO SCH ×2 (08:59→21:39)
[2021-08-13] MEDS: ASPIRIN 81MG TABLET PO SCH (08:59)
[2021-08-13] MEDS: FUROSEMIDE 20MG/2ML VIAL IVP SCH (09:00)
[2021-08-13] MEDS: PANTOPRAZOLE SODIUM 40 MG/VIAL IV SCH (09:00)
[2021-08-13] MEDS: MIDODRINE HCL 5MG TABLET PO SCH ×3 (09:00→17:06)
[2021-08-13] MEDS: POTASSIUM CHLORIDE 10MEQ TABLET SR PO SCH (09:00)
[2021-08-13] MEDS: INSULIN GLARGINE UD 100 UNITS/ML SYR SUBCUT SCH ×2 (09:02→21:40)
[2021-08-13 12:00] VITALS: BP 114/63
[2021-08-13 12:47] LABS: PLATELET ESTIMATE NORMAL
[2021-08-13 16:00] VITALS: BP_SYST 130; BP_SYST 139; BP_DIAS 73
[2021-08-13 20:00] VITALS: BP 108/53
[2021-08-14] VITALS: BP 96/88
[2021-08-14] MEDS: IPRATROPIUM/ALBUTEROL 0.5-3(2.5)MG/3ML NEB HHN SCH ×6 (01:07→20:56)
[2021-08-14 04:00] VITALS: BP 103/60
[2021-08-14] MEDS: BLOOD SUGAR DIAGNOSTIC STRIP TEST SCH ×4 (06:25→21:00)
[2021-08-14] MEDS: ENOXAPARIN 80MG/0.8ML SYR SUBCUT SCH ×2 (06:25→17:45)
[2021-08-14] MEDS: GABAPENTIN 100MG CAPSULE PO SCH ×3 (06:25→21:11)
[2021-08-14] MEDS: INSULIN LISPRO 100 UNITS/ML SUBCUT SCH ×7 (06:27→21:11)
[2021-08-14 08:00] VITALS: BP 114/53
[2021-08-14] MEDS: FUROSEMIDE 20MG/2ML VIAL IVP SCH (09:07)
[2021-08-14] MEDS: PANTOPRAZOLE SODIUM 40 MG/VIAL IV SCH (09:07)
[2021-08-14] MEDS: DOCUSATE SODIUM 100MG CAPSULE PO SCH (09:08)
[2021-08-14] MEDS: METHYLPREDNISOLONE SOD SUCC 40 MG/ML VIAL IV SCH ×2 (09:08→16:25)
[2021-08-14] MEDS: POTASSIUM CHLORIDE 10MEQ TABLET SR PO SCH (09:08)
[2021-08-14] MEDS: GUAIFENESIN 600MG ER TABLET PO SCH ×2 (09:08→21:09)
[2021-08-14] MEDS: MIDODRINE HCL 5MG TABLET PO SCH ×3 (09:08→17:45)
[2021-08-14] MEDS: CARVEDILOL 3.125 MG TABLET PO SCH ×2 (09:08→21:13)
[2021-08-14] MEDS: ASPIRIN 81MG TABLET PO SCH (09:08)
[2021-08-14] MEDS: INSULIN GLARGINE UD 100 UNITS/ML SYR SUBCUT SCH ×2 (09:28→21:11)
[2021-08-14 12:00] VITALS: BP 116/73
[2021-08-14] MEDS ORDERED: DILTIAZEM HCL 30MG TABLET PO SCH ×2 (15:00→18:00)
[2021-08-14 16:00] VITALS: BP 111/57
[2021-08-14] MEDS ORDERED: DILTIAZEM HCL 5MG/ML 5ML VIAL IV NR (17:15)
[2021-08-14] MEDS ORDERED: DILTIAZEM HCL 5MG/ML 5ML VIAL IV ONE (17:15)
[2021-08-14] MEDS: DILTIAZEM HCL 60MG TABLET PO SCH (19:00)
[2021-08-14 20:00] VITALS: BP 94/67
[2021-08-14] MEDS ORDERED: DILTIAZEM HCL 5MG/ML 5ML VIAL IV PRN (21:00)
[2021-08-15] VITALS: BP 117/66
[2021-08-15] MEDS: DILTIAZEM HCL 60MG TABLET PO SCH ×4 (00:28→17:22)
[2021-08-15] MEDS: IPRATROPIUM/ALBUTEROL 0.5-3(2.5)MG/3ML NEB HHN SCH ×5 (00:57→21:24)
[2021-08-15 04:00] VITALS: BP 100/64
[2021-08-15] MEDS: ENOXAPARIN 80MG/0.8ML SYR SUBCUT SCH ×2 (05:29→17:23)
[2021-08-15] MEDS: GABAPENTIN 100MG CAPSULE PO SCH ×3 (05:29→21:54)
[2021-08-15 06:07] LABS: BASOPHILS % 0.1 % (0.0-2.0); HEMATOCRIT. 34.5 % (36.0-48.0); HEMOGLOBIN. 10.9 g/dL (12.0-16.0); LYMPHOCYTES % 10.4 % (20.0-50.0); MEAN CORPUSCULAR HEMOGLOBIN 26.5 pg (28.0-32.0); MEAN CORPUSCULAR VOLUME 83.6 fL (81.0-99.0); MEAN PLATELET VOLUME 10.3 fl (7.4-10.4); MONOCYTES % 6.9 % (2.0-8.0); NEUTROPHILS % 82.6 % (40.0-76.0); PLATELET 190 x1000/uL (130-400); RED BLOOD CELL COUNT 4.13 mill/uL (4.2-5.4); RED CELL DISTRIBUTION WIDTH 18.3 % (11.6-14.6)
[2021-08-15] MEDS: INSULIN LISPRO 100 UNITS/ML SUBCUT SCH ×7 (06:28→22:01)
[2021-08-15] MEDS: BLOOD SUGAR DIAGNOSTIC STRIP TEST SCH ×4 (06:29→21:54)
[2021-08-15 08:00] VITALS: BP 93/61
[2021-08-15] MEDS: ASPIRIN 81MG TABLET PO SCH (08:36)
[2021-08-15] MEDS: GUAIFENESIN 600MG ER TABLET PO SCH ×2 (08:36→21:54)
[2021-08-15] MEDS: MIDODRINE HCL 5MG TABLET PO SCH ×3 (08:36→17:23)
[2021-08-15] MEDS: METHYLPREDNISOLONE SOD SUCC 40 MG/ML VIAL IV SCH ×2 (08:36→17:23)
[2021-08-15] MEDS: DOCUSATE SODIUM 100MG CAPSULE PO SCH (08:36)
[2021-08-15] MEDS: POTASSIUM CHLORIDE 10MEQ TABLET SR PO SCH (08:36)
[2021-08-15] MEDS: CARVEDILOL 3.125 MG TABLET PO SCH ×2 (08:36→21:00)
[2021-08-15] MEDS: PANTOPRAZOLE SODIUM 40 MG/VIAL IV SCH (08:36)
[2021-08-15] MEDS: INSULIN GLARGINE UD 100 UNITS/ML SYR SUBCUT SCH ×2 (10:07→22:35)
[2021-08-15 12:00] VITALS: BP 105/61
[2021-08-15 15:09] LABS: DIGOXIN 0.2 ng/mL (0.9-2.0)
[2021-08-15] MEDS ORDERED: DIGOXIN 500MCG/2ML AMP IV NR (15:49)
[2021-08-15 16:00] VITALS: BP 106/58
[2021-08-15 20:00] VITALS: BP 92/57
[2021-08-16] MEDS: IPRATROPIUM/ALBUTEROL 0.5-3(2.5)MG/3ML NEB HHN SCH ×5 (01:12→20:21)
[2021-08-16 04:00] VITALS: BP 91/51
[2021-08-16] MEDS: DILTIAZEM HCL 60MG TABLET PO SCH ×4 (06:00→17:15)
[2021-08-16] MEDS: INSULIN LISPRO 100 UNITS/ML SUBCUT SCH ×7 (06:21→21:15)
[2021-08-16] MEDS: BLOOD SUGAR DIAGNOSTIC STRIP TEST SCH ×4 (06:21→20:57)
[2021-08-16] MEDS: GABAPENTIN 100MG CAPSULE PO SCH ×3 (06:37→21:16)
[2021-08-16] MEDS: ENOXAPARIN 80MG/0.8ML SYR SUBCUT SCH ×2 (06:37→17:24)
[2021-08-16 08:00] VITALS: BP 85/55
[2021-08-16] MEDS: CARVEDILOL 3.125 MG TABLET PO SCH (08:35)
[2021-08-16] MEDS: METHYLPREDNISOLONE SOD SUCC 40 MG/ML VIAL IV SCH (08:36)
[2021-08-16] MEDS: PANTOPRAZOLE SODIUM 40 MG/VIAL IV SCH (08:36)
[2021-08-16] MEDS: DOCUSATE SODIUM 100MG CAPSULE PO SCH (08:37)
[2021-08-16] MEDS: POTASSIUM CHLORIDE 10MEQ TABLET SR PO SCH (08:37)
[2021-08-16] MEDS: GUAIFENESIN 600MG ER TABLET PO SCH ×2 (08:37→21:16)
[2021-08-16] MEDS: MIDODRINE HCL 5MG TABLET PO SCH ×3 (08:37→17:23)
[2021-08-16] MEDS: ASPIRIN 81MG TABLET PO SCH (08:37)
[2021-08-16] MEDS ORDERED: DIGOXIN 500MCG/2ML AMP IV SCH (10:30)
[2021-08-16 11:46] LABS: HEMATOCRIT. 34.2 % (36.0-48.0); HEMOGLOBIN. 10.6 g/dL (12.0-16.0); MEAN CORPUSCULAR VOLUME 83.9 fL (81.0-99.0); MEAN PLATELET VOLUME 10.2 fl (7.4-10.4); PLATELET 180 x1000/uL (130-400); RED BLOOD CELL COUNT 4.08 mill/uL (4.2-5.4)
[2021-08-16 12:00] VITALS: BP 113/62
[2021-08-16 13:02] LABS: PLATELET ESTIMATE NORMAL
[2021-08-16 16:00] VITALS: BP 100/56
[2021-08-16 20:00] VITALS: BP_SYST 104; BP_SYST 106; BP_DIAS 51; BP_DIAS 59
[2021-08-16] MEDS: INSULIN GLARGINE UD 100 UNITS/ML SYR SUBCUT SCH (21:15)
[2021-08-16] MEDS ORDERED: INSULIN GLARGINE UD 100 UNITS/ML SYR SUBCUT SCH (22:00)
[2021-08-17] VITALS (7 sets, daily range): BP systolic 95–115; BP diastolic 49–67
[2021-08-17] MEDS: IPRATROPIUM/ALBUTEROL 0.5-3(2.5)MG/3ML NEB HHN SCH ×5 (04:12→21:05)
[2021-08-17] MEDS: DILTIAZEM HCL 60MG TABLET PO SCH ×2 (06:00)
[2021-08-17] MEDS: BLOOD SUGAR DIAGNOSTIC STRIP TEST SCH ×4 (06:06→21:56)
[2021-08-17] MEDS: INSULIN LISPRO 100 UNITS/ML SUBCUT SCH ×7 (06:07→21:55)
[2021-08-17] MEDS: GABAPENTIN 100MG CAPSULE PO SCH ×3 (06:31→21:53)
[2021-08-17] MEDS: ENOXAPARIN 80MG/0.8ML SYR SUBCUT SCH ×2 (06:32→17:05)
[2021-08-17 07:14] LABS: BASOPHILS % 0.3 % (0.0-2.0); EOSINOPHILS % 0.2 % (0.0-5.0); HEMATOCRIT. 31.8 % (36.0-48.0); LYMPHOCYTES % 11.2 % (20.0-50.0); MEAN CORPUSCULAR HEMOGLOBIN 26.6 pg (28.0-32.0); MEAN CORPUSCULAR VOLUME 84.3 fL (81.0-99.0); MEAN PLATELET VOLUME 10.2 fl (7.4-10.4); MONOCYTES % 5.8 % (2.0-8.0); NEUTROPHILS % 82.5 % (40.0-76.0); PLATELET 162 x1000/uL (130-400); RED BLOOD CELL COUNT 3.77 mill/uL (4.2-5.4); RED CELL DISTRIBUTION WIDTH 19.5 % (11.6-14.6)
[2021-08-17 07:24] LABS: CHLORIDE 112 mEq/L (98-107)
[2021-08-17] MEDS ORDERED: METHYLPREDNISOLONE SOD SUCC 40 MG/ML VIAL IV SCH (09:00)
[2021-08-17] MEDS: DOCUSATE SODIUM 100MG CAPSULE PO SCH (10:07)
[2021-08-17] MEDS: ASPIRIN 81MG TABLET PO SCH (10:07)
[2021-08-17] MEDS: PANTOPRAZOLE SODIUM 40 MG/VIAL IV SCH (10:07)
[2021-08-17] MEDS: MIDODRINE HCL 5MG TABLET PO SCH ×3 (10:07→17:04)
[2021-08-17] MEDS: GUAIFENESIN 600MG ER TABLET PO SCH ×2 (10:08→21:53)
[2021-08-17] MEDS: POTASSIUM CHLORIDE 10MEQ TABLET SR PO SCH (10:08)
[2021-08-17] MEDS: INSULIN GLARGINE UD 100 UNITS/ML SYR SUBCUT SCH ×2 (10:16→21:56)
[2021-08-17] MEDS ORDERED: FUROSEMIDE 40MG/4ML VIAL IVP NR (11:30)
[2021-08-17] MEDS: DILTIAZEM HCL 30MG TABLET PO SCH ×2 (12:00→17:04)
[2021-08-17] MEDS: DIGOXIN 125MCG TABLET PO SCH (17:04)
[2021-08-17] MEDS ORDERED: DIGOXIN 500MCG/2ML AMP IV SCH (18:00)
[2021-08-18] MEDS: IPRATROPIUM/ALBUTEROL 0.5-3(2.5)MG/3ML NEB HHN SCH ×6 (00:54→21:32)
[2021-08-18 04:00] VITALS: BP 96/50
[2021-08-18] MEDS: DILTIAZEM HCL 30MG TABLET PO SCH ×4 (06:00→21:50)
[2021-08-18] MEDS: ENOXAPARIN 80MG/0.8ML SYR SUBCUT SCH ×2 (06:27→17:44)
[2021-08-18] MEDS: GABAPENTIN 100MG CAPSULE PO SCH ×3 (06:28→21:49)
[2021-08-18] MEDS: BLOOD SUGAR DIAGNOSTIC STRIP TEST SCH ×4 (06:29→20:43)
[2021-08-18] MEDS: INSULIN LISPRO 100 UNITS/ML SUBCUT SCH ×7 (06:29→20:44)
[2021-08-18 07:21] LABS: BASOPHILS % 0.3 % (0.0-2.0); CHLORIDE 111 mEq/L (98-107); EOSINOPHILS % 0.1 % (0.0-5.0); HEMATOCRIT. 30.9 % (36.0-48.0); HEMOGLOBIN. 9.8 g/dL (12.0-16.0); LYMPHOCYTES % 12.3 % (20.0-50.0); MEAN CORPUSCULAR HEMOGLOBIN 26.7 pg (28.0-32.0); MEAN PLATELET VOLUME 10.2 fl (7.4-10.4); MONOCYTES % 6.3 % (2.0-8.0); PLATELET 161 x1000/uL (130-400); RED BLOOD CELL COUNT 3.68 mill/uL (4.2-5.4); RED CELL DISTRIBUTION WIDTH 19.5 % (11.6-14.6)
[2021-08-18 08:00] VITALS: BP 99/51
[2021-08-18] MEDS: PREDNISONE 20MG TABLET PO SCH (09:03)
[2021-08-18] MEDS: PANTOPRAZOLE SODIUM 40 MG/VIAL IV SCH (09:03)
[2021-08-18] MEDS: DOCUSATE SODIUM 100MG CAPSULE PO SCH (09:03)
[2021-08-18] MEDS: POTASSIUM CHLORIDE 10MEQ TABLET SR PO SCH (09:03)
[2021-08-18] MEDS: GUAIFENESIN 600MG ER TABLET PO SCH ×2 (09:03→20:43)
[2021-08-18] MEDS: ASPIRIN 81MG TABLET PO SCH (09:03)
[2021-08-18] MEDS: MIDODRINE HCL 5MG TABLET PO SCH ×3 (09:05→17:48)
[2021-08-18] MEDS: INSULIN GLARGINE UD 100 UNITS/ML SYR SUBCUT SCH ×2 (09:21→21:51)
[2021-08-18 12:00] VITALS: BP 100/63
[2021-08-18] MEDS ORDERED: FUROSEMIDE 40MG/4ML VIAL IVP NR (15:00)
[2021-08-18 16:00] VITALS: BP 99/58
[2021-08-18] MEDS: DIGOXIN 125MCG TABLET PO SCH (17:45)
[2021-08-18 20:00] VITALS: BP 107/62
[2021-08-19] VITALS: BP 92/64
[2021-08-19] MEDS: IPRATROPIUM/ALBUTEROL 0.5-3(2.5)MG/3ML NEB HHN SCH ×6 (01:07→21:22)
[2021-08-19 04:07] VITALS: BP 107/80
[2021-08-19] MEDS: INSULIN LISPRO 100 UNITS/ML SUBCUT SCH ×7 (06:40→21:09)
[2021-08-19] MEDS: ENOXAPARIN 80MG/0.8ML SYR SUBCUT SCH ×2 (06:44→16:34)
[2021-08-19] MEDS: DILTIAZEM HCL 30MG TABLET PO SCH ×3 (06:45→21:15)
[2021-08-19] MEDS: GABAPENTIN 100MG CAPSULE PO SCH ×3 (06:45→21:09)
[2021-08-19] MEDS: BLOOD SUGAR DIAGNOSTIC STRIP TEST SCH ×4 (06:46→21:09)
[2021-08-19 06:52] LABS: BASOPHILS % 0.1 % (0.0-2.0); EOSINOPHILS % 0.4 % (0.0-5.0); HEMATOCRIT. 30.3 % (36.0-48.0); HEMOGLOBIN. 9.5 g/dL (12.0-16.0); LYMPHOCYTES % 12.1 % (20.0-50.0); MEAN CORPUSCULAR HEMOGLOBIN 26.6 pg (28.0-32.0); MEAN CORPUSCULAR VOLUME 85.2 fL (81.0-99.0); MEAN PLATELET VOLUME 10.1 fl (7.4-10.4); MONOCYTES % 4.2 % (2.0-8.0); NEUTROPHILS % 83.2 % (40.0-76.0); PLATELET 141 x1000/uL (130-400); RED BLOOD CELL COUNT 3.56 mill/uL (4.2-5.4); RED CELL DISTRIBUTION WIDTH 20.3 % (11.6-14.6)
[2021-08-19 08:00] VITALS: BP 90/53
[2021-08-19] MEDS: MIDODRINE HCL 5MG TABLET PO SCH ×3 (09:01→16:35)
[2021-08-19] MEDS: ASPIRIN 81MG TABLET PO SCH (09:01)
[2021-08-19] MEDS: POTASSIUM CHLORIDE 10MEQ TABLET SR PO SCH (09:01)
[2021-08-19] MEDS: GUAIFENESIN 600MG ER TABLET PO SCH ×2 (09:02→21:09)
[2021-08-19] MEDS: PREDNISONE 20MG TABLET PO SCH (09:02)
[2021-08-19] MEDS: DOCUSATE SODIUM 100MG CAPSULE PO SCH (09:03)
[2021-08-19] MEDS: PANTOPRAZOLE SODIUM 40 MG/VIAL IV SCH (09:08)
[2021-08-19] MEDS: INSULIN GLARGINE UD 100 UNITS/ML SYR SUBCUT SCH ×2 (11:43→21:17)
[2021-08-19 12:00] VITALS: BP 92/65
[2021-08-19 16:00] VITALS: BP 104/73
[2021-08-19] MEDS: DIGOXIN 125MCG TABLET PO SCH (16:36)
[2021-08-19 20:00] VITALS: BP 112/59
[2021-08-20] VITALS (29 sets, daily range): BP systolic 51–162; BP diastolic 25–116
[2021-08-20] MEDS: ENOXAPARIN 80MG/0.8ML SYR SUBCUT SCH ×2 (06:35→18:26)
[2021-08-20] MEDS: GABAPENTIN 100MG CAPSULE PO SCH (06:35)
[2021-08-20] MEDS: BLOOD SUGAR DIAGNOSTIC STRIP TEST SCH ×3 (06:35→21:15)
[2021-08-20] MEDS: DILTIAZEM HCL 30MG TABLET PO SCH ×2 (06:35→22:00)
[2021-08-20] MEDS: INSULIN LISPRO 100 UNITS/ML SUBCUT SCH ×5 (06:36→21:00)
[2021-08-20 07:18] LABS: HEMATOCRIT. 29.4 % (36.0-48.0); HEMOGLOBIN. 9.2 g/dL (12.0-16.0); MEAN CORPUSCULAR HEMOGLOBIN 26.7 pg (28.0-32.0); MEAN PLATELET VOLUME 10.3 fl (7.4-10.4); PLATELET 157 x1000/uL (130-400); RED BLOOD CELL COUNT 3.46 mill/uL (4.2-5.4); RED CELL DISTRIBUTION WIDTH 20.6 % (11.6-14.6)
[2021-08-20] MEDS: IPRATROPIUM/ALBUTEROL 0.5-3(2.5)MG/3ML NEB HHN SCH ×4 (08:44→21:09)
[2021-08-20] MEDS ORDERED: FUROSEMIDE 40MG/4ML VIAL IVP NR ×2 (10:30→12:00)
[2021-08-20 10:42] LABS: BG BASE EXCESS -5.3 mmol/L (-2.0-2.0); BG CARBOXYHEMOGLOBIN 0.2 % (0.5-1.5); BG DEOXYHEMOGLOBIN 0.5 % (0.0-5.0); BG FRACTION INSPIRED OXYGEN 100; BG HCO3 ACT 20.9 mmol/L (22.0-26.0); BG METHEMOGLOBIN 0.4 % (0.0-1.5); BG OXYGEN SATURATION 99.5 % (92.0-98.5); BG OXYHEMOGLOBIN 98.9 % (94.0-97.0); BG PCO2 43.6 mmHg (35.0-45.0); BG PH 7.299 (7.350-7.450); BG PO2 302.1 mmHg (75.0-100.0); BG SAMPLE SITE LEFT BRACHIAL; BG VENT MODE MASK - BIPAP
[2021-08-20] MEDS ORDERED: NOREPINEPHRINE 8MG/250ML PMX 250 ML IV PRN (11:30)
[2021-08-20] MEDS ORDERED: FUROSEMIDE 40MG/4ML VIAL IVP ONE (11:45)
[2021-08-20] MEDS ORDERED: METOPROLOL TARTRATE 5MG/5ML VIAL IV NR (12:00)
[2021-08-20] MEDS: METHYLPREDNISOLONE SOD SUCC 40 MG/ML VIAL IV SCH (12:17)
[2021-08-20] MEDS ORDERED: FUROSEMIDE 100MG/10ML VIAL IVP SCH (12:30)
[2021-08-20] MEDS ORDERED: DILTIAZEM HCL 125 MG in DEXTROSE 5% WATER 125 ML IV PRN (13:00)
[2021-08-20] MEDS ORDERED: AMIODARONE HCL 900 MG in DEXT 5% WATER 500 ML IV NR (13:00)
[2021-08-20] MEDS ORDERED: SODIUM BICARBONATE 8.4% 1 MEQ/ML 50ML SYR IV SCH (13:00)
[2021-08-20 13:05] LABS: BG BASE EXCESS -2.7 mmol/L (-2.0-2.0); BG CARBOXYHEMOGLOBIN 0.3 % (0.5-1.5); BG DEOXYHEMOGLOBIN 8.4 % (0.0-5.0); BG FRACTION INSPIRED OXYGEN 50; BG HCO3 ACT 24.3 mmol/L (22.0-26.0); BG METHEMOGLOBIN 0.2 % (0.0-1.5); BG OXYGEN SATURATION 91.6 % (92.0-98.5); BG OXYHEMOGLOBIN 91.1 % (94.0-97.0); BG PCO2 51.5 mmHg (35.0-45.0); BG PH 7.291 (7.350-7.450); BG SAMPLE SITE RIGHT RADIAL; BG TOTAL HEMOGLOBIN 12.4 g/dL (12.0-18.0); BG VENT MODE MASK - BIPAP
[2021-08-20] MEDS ORDERED: DILTIAZEM HCL 125 MG in DEXTROSE 5% WATER 125 ML IV NR (13:15)
[2021-08-20] MEDS ORDERED: NOREPINEPHRINE 8 MG in DEXTROSE 5% WATER 250 ML IV NR (13:15)
[2021-08-20] MEDS ORDERED: NOREPINEPHRINE 8 MG in DEXTROSE 5% WATER 250 ML IV PRN (14:30)
[2021-08-20] MEDS ORDERED: DOPAMINE 400MG/250ML PREMIX 250 ML IV PRN (15:00)
[2021-08-20] MEDS ORDERED: DOBUTAMINE 500MG PREMIX 250 ML IV PRN (15:45)
[2021-08-20] MEDS ORDERED: BUMETANIDE 0.25MG/ML 2ML VIAL IV ONE (15:45)
[2021-08-20 16:00] LABS: NUCLEATED RED BLOOD CELLS 1 /100 WBC
[2021-08-20 16:01] LABS: PLATELET ESTIMATE NORMAL
[2021-08-20] MEDS ORDERED: AMIODARONE HCL 150 MG in DEXT 5% WATER 100 ML IV ONE (16:30)
[2021-08-20] MEDS ORDERED: BUMETANIDE IV SCH (17:00)
[2021-08-20] MEDS: DIGOXIN 125MCG TABLET PO SCH (18:00)
[2021-08-20] MEDS: PHENYLEPHRINE 100 MG in DEXT 5% WATER 240 ML IV PRN (18:27)
[2021-08-20 20:19] LABS: HEMATOCRIT. 36.7 % (36.0-48.0); HEMOGLOBIN. 11.2 g/dL (12.0-16.0); MEAN CORPUSCULAR HEMOGLOBIN 26.4 pg (28.0-32.0); MEAN CORPUSCULAR VOLUME 86.9 fL (81.0-99.0); MEAN PLATELET VOLUME 10.5 fl (7.4-10.4); PLATELET 203 x1000/uL (130-400); RED BLOOD CELL COUNT 4.23 mill/uL (4.2-5.4); RED CELL DISTRIBUTION WIDTH 20.5 % (11.6-14.6)
[2021-08-20] MEDS: GUAIFENESIN 600MG ER TABLET PO SCH (21:00)
[2021-08-20] MEDS: CEFEPIME 1,000 MG in DEXTROSE 5% WATER 50 ML IV SCH (21:47)
[2021-08-20 21:49] LABS: NUCLEATED RED BLOOD CELLS 4 /100 WBC; PLATELET ESTIMATE NORMAL
[2021-08-20] MEDS ORDERED: DEXTROSE 50% WATER 50ML SYRINGE IV NR (22:07)
[2021-08-20] MEDS ORDERED: INSULIN REGULAR (HUMULIN R) 300UNITS/3ML VIAL IV NR (22:07)
[2021-08-20] MEDS ORDERED: SODIUM BICARBONATE 8.4% 1 MEQ/ML 50ML SYR IV NR (22:08)
[2021-08-20] MEDS ORDERED: CALCIUM CHLORIDE 1GM/10ML SYR IV NR (22:15)
[2021-08-21] VITALS (75 sets, daily range): BP systolic 67–132; BP diastolic 15–82
[2021-08-21] MEDS: IPRATROPIUM/ALBUTEROL 0.5-3(2.5)MG/3ML NEB HHN SCH ×6 (00:18→20:04)
[2021-08-21 05:49] LABS: HEMATOCRIT. 35.6 % (36.0-48.0); HEMOGLOBIN. 10.7 g/dL (12.0-16.0); MEAN CORPUSCULAR HEMOGLOBIN 26.3 pg (28.0-32.0); MEAN CORPUSCULAR VOLUME 87.3 fL (81.0-99.0); MEAN PLATELET VOLUME 10.6 fl (7.4-10.4); PLATELET 181 x1000/uL (130-400); RED BLOOD CELL COUNT 4.07 mill/uL (4.2-5.4); RED CELL DISTRIBUTION WIDTH 21.3 % (11.6-14.6)
[2021-08-21] MEDS: DILTIAZEM HCL 30MG TABLET PO SCH ×3 (06:29→21:55)
[2021-08-21] MEDS: ENOXAPARIN 80MG/0.8ML SYR SUBCUT SCH ×2 (06:30→18:11)
[2021-08-21] MEDS: BLOOD SUGAR DIAGNOSTIC STRIP TEST SCH ×3 (07:20→17:28)
[2021-08-21] MEDS: DOCUSATE SODIUM 100MG CAPSULE PO SCH (08:39)
[2021-08-21] MEDS: POTASSIUM CHLORIDE 10MEQ TABLET SR PO SCH (08:39)
[2021-08-21] MEDS: GUAIFENESIN 600MG ER TABLET PO SCH ×2 (08:41→21:55)
[2021-08-21] MEDS: PANTOPRAZOLE SODIUM 40 MG/VIAL IV SCH (08:55)
[2021-08-21] MEDS: INSULIN LISPRO 100 UNITS/ML SUBCUT SCH ×3 (08:58→18:12)
[2021-08-21] MEDS ORDERED: DEXTROSE 50% WATER 50ML SYRINGE IV SCH (09:00)
[2021-08-21] MEDS ORDERED: SODIUM BICARBONATE 8.4% 1 MEQ/ML 50ML SYR IV SCH (09:00)
[2021-08-21] MEDS ORDERED: INSULIN REGULAR (HUMULIN R) 300UNITS/3ML VIAL IV SCH (09:00)
[2021-08-21] MEDS: METHYLPREDNISOLONE SOD SUCC 40 MG/ML VIAL IV SCH (09:03)
[2021-08-21 09:14] LABS: PLATELET ESTIMATE NORMAL
[2021-08-21] MEDS: CEFEPIME 1,000 MG in DEXTROSE 5% WATER 50 ML IV SCH (09:15)
[2021-08-21] MEDS: FUROSEMIDE 40MG/4ML VIAL IVP SCH ×2 (11:15→18:11)
[2021-08-21] MEDS ORDERED: METRONIDAZOLE 500 MG PREMIX 100 ML IV SCH ×2 (11:30→15:00)
[2021-08-21] MEDS ORDERED: METRONIDAZOLE 500MG TABLET PO SCH (14:00)
[2021-08-21] MEDS: PIPERACILLIN/TAZOBACTAM 3.375G in DEXT 5% WATER 50ML IV SCH ×2 (16:29→21:55)
[2021-08-21] MEDS: PHENYLEPHRINE 100 MG in DEXT 5% WATER 240 ML IV PRN (16:30)
[2021-08-21] MEDS: DIGOXIN 125MCG TABLET PO SCH (18:11)
[2021-08-22] VITALS (78 sets, daily range): BP systolic 75–127; BP diastolic 29–88
[2021-08-22] MEDS: IPRATROPIUM/ALBUTEROL 0.5-3(2.5)MG/3ML NEB HHN SCH ×6 (00:08→20:33)
[2021-08-22] MEDS: BLOOD SUGAR DIAGNOSTIC STRIP TEST SCH ×5 (00:22→21:12)
[2021-08-22 05:42] LABS: HEMOGLOBIN. 9.3 g/dL (12.0-16.0); MEAN CORPUSCULAR HEMOGLOBIN 26.4 pg (28.0-32.0); MEAN CORPUSCULAR VOLUME 85.6 fL (81.0-99.0); MEAN PLATELET VOLUME 10.2 fl (7.4-10.4); PLATELET 141 x1000/uL (130-400); RED BLOOD CELL COUNT 3.51 mill/uL (4.2-5.4); RED CELL DISTRIBUTION WIDTH 22.3 % (11.6-14.6)
[2021-08-22] MEDS: INSULIN LISPRO 100 UNITS/ML SUBCUT SCH ×5 (05:48→21:13)
[2021-08-22] MEDS: ENOXAPARIN 80MG/0.8ML SYR SUBCUT SCH ×2 (06:00→18:37)
[2021-08-22] MEDS: PIPERACILLIN/TAZOBACTAM 3.375G in DEXT 5% WATER 50ML IV SCH ×3 (06:15→21:12)
[2021-08-22] MEDS: DILTIAZEM HCL 30MG TABLET PO SCH (06:16)
[2021-08-22] MEDS: DOCUSATE SODIUM 100MG CAPSULE PO SCH (08:34)
[2021-08-22] MEDS: PANTOPRAZOLE SODIUM 40 MG/VIAL IV SCH (08:34)
[2021-08-22] MEDS: FUROSEMIDE 40MG/4ML VIAL IVP SCH ×2 (08:34→17:05)
[2021-08-22] MEDS: GUAIFENESIN 600MG ER TABLET PO SCH ×2 (08:35→21:12)
[2021-08-22] MEDS: METHYLPREDNISOLONE SOD SUCC 40 MG/ML VIAL IV SCH (08:35)
[2021-08-22 10:09] LABS: PLATELET ESTIMATE NORMAL
[2021-08-22] MEDS: LACTULOSE 20G/30ML UDC PO PRN (13:27)
[2021-08-22] MEDS: PHENYLEPHRINE 100 MG in DEXT 5% WATER 240 ML IV PRN (13:41)
[2021-08-22] MEDS ORDERED: MIDODRINE HCL 2.5MG TABLET PO SCH (17:00)
[2021-08-22] MEDS: BISACODYL 5MG TABLET PO PRN (17:05)
[2021-08-22] MEDS ORDERED: INSULIN LISPRO 100 UNITS/ML SUBCUT NR (21:00)
[2021-08-22] MEDS ORDERED: INSULIN GLARGINE UD 100 UNITS/ML SYR SUBCUT SCH (22:00)
[2021-08-23] VITALS (83 sets, daily range): BP systolic 71–171; BP diastolic 38–103
[2021-08-23] MEDS: IPRATROPIUM/ALBUTEROL 0.5-3(2.5)MG/3ML NEB HHN SCH ×6 (00:32→20:32)
[2021-08-23] MEDS: PIPERACILLIN/TAZOBACTAM 3.375G in DEXT 5% WATER 50ML IV SCH ×3 (05:43→21:10)
[2021-08-23] MEDS: ENOXAPARIN 80MG/0.8ML SYR SUBCUT SCH ×2 (05:43→17:39)
[2021-08-23 06:09] LABS: HEMOGLOBIN. 9.3 g/dL (12.0-16.0); MEAN CORPUSCULAR HEMOGLOBIN 26.4 pg (28.0-32.0); MEAN CORPUSCULAR VOLUME 85.6 fL (81.0-99.0); MEAN PLATELET VOLUME 10.2 fl (7.4-10.4); PLATELET 139 x1000/uL (130-400); RED BLOOD CELL COUNT 3.51 mill/uL (4.2-5.4); RED CELL DISTRIBUTION WIDTH 21.7 % (11.6-14.6)
[2021-08-23] MEDS: FUROSEMIDE 40MG/4ML VIAL IVP SCH (06:30)
[2021-08-23] MEDS: BLOOD SUGAR DIAGNOSTIC STRIP TEST SCH ×4 (08:28→21:12)
[2021-08-23] MEDS: INSULIN LISPRO 100 UNITS/ML SUBCUT SCH ×4 (08:44→21:13)
[2021-08-23 08:59] LABS: PLATELET ESTIMATE NORMAL
[2021-08-23] MEDS ORDERED: POTASSIUM CHLORIDE 20MEQ/PACKET PO SCH (09:00)
[2021-08-23] MEDS: ASPIRIN 81MG TABLET PO SCH ×2 (09:47→09:51)
[2021-08-23] MEDS: PANTOPRAZOLE SODIUM 40 MG/VIAL IV SCH (09:47)
[2021-08-23] MEDS: DOCUSATE SODIUM 100MG CAPSULE PO SCH (09:48)
[2021-08-23] MEDS: MIDODRINE HCL 5MG TABLET PO SCH ×2 (09:48→17:39)
[2021-08-23] MEDS: GUAIFENESIN 600MG ER TABLET PO SCH ×2 (09:48→21:10)
[2021-08-23] MEDS: METHYLPREDNISOLONE SOD SUCC 40 MG/ML VIAL IV SCH (11:12)
[2021-08-23] MEDS: PHENYLEPHRINE 100 MG in DEXT 5% WATER 240 ML IV PRN (15:37)
[2021-08-23] MEDS: DIGOXIN 125MCG TABLET PO SCH (17:39)
[2021-08-23] MEDS ORDERED: INSULIN GLARGINE UD 100 UNITS/ML SYR SUBCUT NR ×3 (19:00→22:00)
[2021-08-23] MEDS ORDERED: INSULIN LISPRO 100 UNITS/ML SUBCUT NR (20:30)
[2021-08-24] VITALS (86 sets, daily range): BP systolic 51–165; BP diastolic 20–124
[2021-08-24] MEDS: ACETYLCYSTEINE 100MG/ML 10% VIAL 4ML INH SCH ×4 (00:45→20:01)
[2021-08-24] MEDS: IPRATROPIUM/ALBUTEROL 0.5-3(2.5)MG/3ML NEB HHN SCH ×6 (00:45→20:01)
[2021-08-24] MEDS: MIDODRINE HCL 5MG TABLET PO SCH (02:11)
[2021-08-24] MEDS: ENOXAPARIN 80MG/0.8ML SYR SUBCUT SCH ×2 (05:00→18:19)
[2021-08-24] MEDS: PIPERACILLIN/TAZOBACTAM 3.375G in DEXT 5% WATER 50ML IV SCH ×3 (05:00→21:00)
[2021-08-24 06:07] LABS: HEMATOCRIT. 29.5 % (36.0-48.0); HEMOGLOBIN. 9.2 g/dL (12.0-16.0); MEAN CORPUSCULAR HEMOGLOBIN 26.7 pg (28.0-32.0); MEAN CORPUSCULAR VOLUME 85.6 fL (81.0-99.0); MEAN PLATELET VOLUME 10.2 fl (7.4-10.4); PLATELET 123 x1000/uL (130-400); RED BLOOD CELL COUNT 3.44 mill/uL (4.2-5.4); RED CELL DISTRIBUTION WIDTH 21.8 % (11.6-14.6)
[2021-08-24 06:29] LABS: PHOSPHORUS 1.8 mg/dL (2.5-4.9)
[2021-08-24] MEDS: INSULIN LISPRO 100 UNITS/ML SUBCUT SCH ×7 (07:50→21:01)
[2021-08-24] MEDS: BLOOD SUGAR DIAGNOSTIC STRIP TEST SCH ×4 (08:30→21:00)
[2021-08-24] MEDS ORDERED: POTASSIUM-SODIUM PHOSPHATE POWDER PACKET PO NR (08:45)
[2021-08-24] MEDS: PANTOPRAZOLE SODIUM 40 MG/VIAL IV SCH (09:34)
[2021-08-24] MEDS: FUROSEMIDE 40MG/4ML VIAL IVP SCH (09:34)
[2021-08-24] MEDS: METHYLPREDNISOLONE SOD SUCC 40 MG/ML VIAL IV SCH (09:34)
[2021-08-24] MEDS: ASPIRIN 81MG TABLET PO SCH (09:34)
[2021-08-24] MEDS: GUAIFENESIN 600MG ER TABLET PO SCH ×2 (09:35→21:00)
[2021-08-24] MEDS: DOCUSATE SODIUM 100MG CAPSULE PO SCH (09:36)
[2021-08-24] MEDS: INSULIN GLARGINE UD 100 UNITS/ML SYR SUBCUT SCH ×2 (11:44→21:02)
[2021-08-24 13:14] LABS: PLATELET ESTIMATE SLIGHTLY DECREASED
[2021-08-24] MEDS: MIDODRINE HCL 2.5MG TABLET PO SCH ×2 (14:21→21:01)
[2021-08-25] VITALS (46 sets, daily range): BP systolic 82–135; BP diastolic 41–97
[2021-08-25] MEDS: IPRATROPIUM/ALBUTEROL 0.5-3(2.5)MG/3ML NEB HHN SCH ×6 (04:00→20:52)
[2021-08-25] MEDS: PIPERACILLIN/TAZOBACTAM 3.375G in DEXT 5% WATER 50ML IV SCH ×3 (05:02→21:10)
[2021-08-25] MEDS: ENOXAPARIN 80MG/0.8ML SYR SUBCUT SCH (05:02)
[2021-08-25] MEDS: MIDODRINE HCL 2.5MG TABLET PO SCH ×3 (05:03→21:11)
[2021-08-25 06:04] LABS: BASOPHILS % 0.1 % (0.0-2.0); EOSINOPHILS % 0.1 % (0.0-5.0); HEMATOCRIT. 27.6 % (36.0-48.0); HEMOGLOBIN. 8.9 g/dL (12.0-16.0); LYMPHOCYTES % 9.6 % (20.0-50.0); MEAN CORPUSCULAR HEMOGLOBIN 27.6 pg (28.0-32.0); MEAN CORPUSCULAR VOLUME 85.4 fL (81.0-99.0); MEAN PLATELET VOLUME 9.7 fl (7.4-10.4); MONOCYTES % 4.6 % (2.0-8.0); NEUTROPHILS % 85.6 % (40.0-76.0); PLATELET 92 x1000/uL (130-400); RED BLOOD CELL COUNT 3.23 mill/uL (4.2-5.4); RED CELL DISTRIBUTION WIDTH 21.6 % (11.6-14.6)
[2021-08-25] MEDS: BLOOD SUGAR DIAGNOSTIC STRIP TEST SCH ×4 (07:44→20:36)
[2021-08-25] MEDS: INSULIN LISPRO 100 UNITS/ML SUBCUT SCH ×7 (07:44→21:12)
[2021-08-25] MEDS: PANTOPRAZOLE SODIUM 40 MG/VIAL IV SCH (08:32)
[2021-08-25] MEDS: FUROSEMIDE 40MG/4ML VIAL IVP SCH (08:32)
[2021-08-25] MEDS: PREDNISONE 20MG TABLET PO SCH (08:32)
[2021-08-25] MEDS: DOCUSATE SODIUM 100MG CAPSULE PO SCH (08:32)
[2021-08-25] MEDS: GUAIFENESIN 600MG ER TABLET PO SCH ×2 (08:32→20:36)
[2021-08-25] MEDS: ACETYLCYSTEINE 100MG/ML 10% VIAL 4ML INH SCH ×2 (08:47→17:06)
[2021-08-25] MEDS: INSULIN GLARGINE UD 100 UNITS/ML SYR SUBCUT SCH ×2 (10:10→21:12)
[2021-08-25] MEDS: DIGOXIN 125MCG TABLET PO SCH (17:40)
[2021-08-26] VITALS (11 sets, daily range): BP systolic 92–128; BP diastolic 49–85
[2021-08-26] MEDS: ACETYLCYSTEINE 100MG/ML 10% VIAL 4ML INH SCH ×4 (01:10→21:03)
[2021-08-26] MEDS: IPRATROPIUM/ALBUTEROL 0.5-3(2.5)MG/3ML NEB HHN SCH ×4 (01:10→21:02)
[2021-08-26] MEDS: PIPERACILLIN/TAZOBACTAM 3.375G in DEXT 5% WATER 50ML IV SCH (05:23)
[2021-08-26] MEDS: MIDODRINE HCL 2.5MG TABLET PO SCH ×3 (05:24→21:30)
[2021-08-26] MEDS: BLOOD SUGAR DIAGNOSTIC STRIP TEST SCH ×4 (06:44→20:38)
[2021-08-26] MEDS: INSULIN LISPRO 100 UNITS/ML SUBCUT SCH ×7 (06:47→20:38)
[2021-08-26 07:38] LABS: PHOSPHORUS 3.2 mg/dL (2.5-4.9)
[2021-08-26 08:15] LABS: HEMATOCRIT 29.1 % (36.0-48.0); HEMOGLOBIN 9.1 g/dL (12.0-16.0); MEAN CORPUSCULAR HEMOGLOBIN 26.9 pg (28.0-32.0); MEAN CORPUSCULAR VOLUME 86.3 fL (81.0-99.0); PLATELET 97 x1000/uL (130-400); RED BLOOD CELL COUNT 3.37 mill/uL (4.2-5.4); RED CELL DISTRIBUTION WIDTH 21.5 % (11.6-14.6)
[2021-08-26] MEDS: PANTOPRAZOLE SODIUM 40 MG/VIAL IV SCH (09:17)
[2021-08-26] MEDS: FUROSEMIDE 40MG/4ML VIAL IVP SCH (09:17)
[2021-08-26] MEDS: INSULIN GLARGINE UD 100 UNITS/ML SYR SUBCUT SCH ×2 (09:18→21:31)
[2021-08-26] MEDS: DOCUSATE SODIUM 100MG CAPSULE PO SCH (09:18)
[2021-08-26] MEDS: PREDNISONE 20MG TABLET PO SCH (09:18)
[2021-08-26] MEDS: GUAIFENESIN 600MG ER TABLET PO SCH ×2 (09:18→20:34)
[2021-08-26] MEDS ORDERED: PHENYLEPHRINE/SHK LV/MO/PET RECTAL OINTMENT 57GM PR PRN (11:30)
[2021-08-26] MEDS: POTASSIUM CHLORIDE 20MEQ TABLET SR PO SCH (12:33)
[2021-08-27] VITALS (11 sets, daily range): BP systolic 98–123; BP diastolic 52–78
[2021-08-27] MEDS: MIDODRINE HCL 2.5MG TABLET PO SCH ×3 (05:49→21:27)
[2021-08-27] MEDS: GLYBURIDE 5MG TABLET PO SCH (05:51)
[2021-08-27] MEDS: BLOOD SUGAR DIAGNOSTIC STRIP TEST SCH ×4 (05:51→21:00)
[2021-08-27] MEDS: INSULIN LISPRO 100 UNITS/ML SUBCUT SCH ×7 (06:46→21:28)
[2021-08-27 08:00] LABS: BASOPHILS % 0.1 % (0.0-2.0); EOSINOPHILS % 0.2 % (0.0-5.0); HEMATOCRIT. 29.3 % (36.0-48.0); HEMOGLOBIN. 9.3 g/dL (12.0-16.0); LYMPHOCYTES % 12.5 % (20.0-50.0); MEAN CORPUSCULAR HEMOGLOBIN 27.2 pg (28.0-32.0); MEAN PLATELET VOLUME 9.6 fl (7.4-10.4); MONOCYTES % 4.1 % (2.0-8.0); NEUTROPHILS % 83.1 % (40.0-76.0); PLATELET 114 x1000/uL (130-400); RED BLOOD CELL COUNT 3.41 mill/uL (4.2-5.4); RED CELL DISTRIBUTION WIDTH 22.7 % (11.6-14.6)
[2021-08-27] MEDS: ACETYLCYSTEINE 100MG/ML 10% VIAL 4ML INH SCH (09:05)
[2021-08-27] MEDS: IPRATROPIUM/ALBUTEROL 0.5-3(2.5)MG/3ML NEB HHN SCH ×3 (09:05→22:22)
[2021-08-27] MEDS: FUROSEMIDE 40MG/4ML VIAL IVP SCH (09:07)
[2021-08-27] MEDS: PREDNISONE 20MG TABLET PO SCH (09:07)
[2021-08-27] MEDS: POTASSIUM CHLORIDE 20MEQ TABLET SR PO SCH (09:07)
[2021-08-27] MEDS: GUAIFENESIN 600MG ER TABLET PO SCH ×2 (09:08→21:27)
[2021-08-27] MEDS: INSULIN GLARGINE UD 100 UNITS/ML SYR SUBCUT SCH ×2 (09:19→21:28)
[2021-08-27] MEDS: DOCUSATE SODIUM 100MG CAPSULE PO PRN (10:27)
[2021-08-27] MEDS: DIGOXIN 125MCG TABLET PO SCH (16:48)
[2021-08-28] VITALS (10 sets, daily range): BP systolic 94–134; BP diastolic 53–80
[2021-08-28] MEDS: IPRATROPIUM/ALBUTEROL 0.5-3(2.5)MG/3ML NEB HHN SCH ×5 (01:38→21:47)
[2021-08-28] MEDS: ACETYLCYSTEINE 100MG/ML 10% VIAL 4ML INH SCH ×4 (01:39→16:33)
[2021-08-28] MEDS: BLOOD SUGAR DIAGNOSTIC STRIP TEST SCH ×4 (05:59→21:00)
[2021-08-28] MEDS: GLYBURIDE 5MG TABLET PO SCH (06:11)
[2021-08-28] MEDS: DOCUSATE SODIUM 100MG CAPSULE PO PRN (06:11)
[2021-08-28] MEDS: MIDODRINE HCL 2.5MG TABLET PO SCH ×3 (06:12→22:49)
[2021-08-28] MEDS: INSULIN LISPRO 100 UNITS/ML SUBCUT SCH ×7 (06:50→22:52)
[2021-08-28] MEDS: POTASSIUM CHLORIDE 20MEQ TABLET SR PO SCH (09:20)
[2021-08-28] MEDS: PREDNISONE 20MG TABLET PO SCH (09:20)
[2021-08-28] MEDS: GUAIFENESIN 600MG ER TABLET PO SCH ×2 (09:20→21:00)
[2021-08-28] MEDS: FUROSEMIDE 40MG/4ML VIAL IVP SCH (09:20)
[2021-08-28] MEDS: INSULIN GLARGINE UD 100 UNITS/ML SYR SUBCUT SCH ×2 (09:22→22:51)
[2021-08-28 14:24] LABS: CHLORIDE 103 mEq/L (98-107)
[2021-08-28] MEDS: ENOXAPARIN 80MG/0.8ML SYR SUBCUT SCH (17:10)
[2021-08-29] VITALS: BP 100/54
[2021-08-29 04:00] VITALS: BP 123/69
[2021-08-29 07:14] LABS: CHLORIDE 108 mEq/L (98-107)
[2021-08-29] MEDS ORDERED: DEXTROSE 50% WATER 50ML SYRINGE IV PRN (07:15)
[2021-08-29 07:18] LABS: HEMATOCRIT. 30.8 % (36.0-48.0); HEMOGLOBIN. 9.5 g/dL (12.0-16.0); MEAN CORPUSCULAR HEMOGLOBIN 26.6 pg (28.0-32.0); MEAN CORPUSCULAR VOLUME 86.8 fL (81.0-99.0); MEAN PLATELET VOLUME 9.3 fl (7.4-10.4); PLATELET 158 x1000/uL (130-400); RED BLOOD CELL COUNT 3.55 mill/uL (4.2-5.4); RED CELL DISTRIBUTION WIDTH 23.4 % (11.6-14.6)
[2021-08-29] MEDS: INSULIN LISPRO 100 UNITS/ML SUBCUT SCH ×7 (07:20→22:38)
[2021-08-29] MEDS: MIDODRINE HCL 2.5MG TABLET PO SCH (07:27)
[2021-08-29 08:00] VITALS: BP 105/46
[2021-08-29] MEDS: BLOOD SUGAR DIAGNOSTIC STRIP TEST SCH ×4 (08:06→21:00)
[2021-08-29] MEDS: IPRATROPIUM/ALBUTEROL 0.5-3(2.5)MG/3ML NEB HHN SCH ×4 (08:20→20:35)
[2021-08-29] MEDS: FUROSEMIDE 40MG/4ML VIAL IVP SCH (10:00)
[2021-08-29] MEDS: GLYBURIDE 5MG TABLET PO SCH (10:00)
[2021-08-29] MEDS: DOCUSATE SODIUM 100MG CAPSULE PO PRN (10:00)
[2021-08-29] MEDS: POTASSIUM CHLORIDE 20MEQ TABLET SR PO SCH (10:00)
[2021-08-29] MEDS: PREDNISONE 10MG TABLET PO SCH (10:01)
[2021-08-29] MEDS: ENOXAPARIN 80MG/0.8ML SYR SUBCUT SCH ×2 (10:07→18:38)
[2021-08-29 12:00] VITALS: BP 93/47
[2021-08-29] MEDS ORDERED: INSULIN GLARGINE UD 100 UNITS/ML SYR SUBCUT SCH (12:30)
[2021-08-29] MEDS: MIDODRINE HCL 5MG TABLET PO SCH ×2 (13:42→21:01)
[2021-08-29 16:00] VITALS: BP 112/59
[2021-08-29] MEDS: DIGOXIN 125MCG TABLET PO SCH (18:38)
[2021-08-29 18:46] LABS: CLARITY URINE CLEAR (CLEAR); COLOR URINE YELLOW (YELLOW); KETONES URINE NEGATIVE (NEGATIVE); LEUKOCYTE ESTERASE URINE 2+ (NEGATIVE); NITRITE URINE NEGATIVE (NEGATIVE); OCCULT BLOOD URINE NEGATIVE (NEGATIVE); PROTEIN URINE NEGATIVE (NEGATIVE); SPECIFIC GRAVITY URINE 1.012 (1.005-1.030); UROBILINOGEN URINE 0.2 E.U./dL (0.2-1.0)
[2021-08-29 19:15] LABS: PLATELET ESTIMATE NORMAL
[2021-08-29 20:00] VITALS: BP 98/45
[2021-08-29 21:50] LABS: BASOPHILS % 0.1 % (0.0-2.0); EOSINOPHILS % 0.1 % (0.0-5.0); HEMATOCRIT. 29.2 % (36.0-48.0); HEMOGLOBIN. 9.4 g/dL (12.0-16.0); LYMPHOCYTES % 7.9 % (20.0-50.0); MEAN CORPUSCULAR HEMOGLOBIN 27.7 pg (28.0-32.0); MEAN CORPUSCULAR VOLUME 86.5 fL (81.0-99.0); MEAN PLATELET VOLUME 8.7 fl (7.4-10.4); MONOCYTES % 2.6 % (2.0-8.0); NEUTROPHILS % 89.3 % (40.0-76.0); PLATELET 139 x1000/uL (130-400); RED BLOOD CELL COUNT 3.38 mill/uL (4.2-5.4); RED CELL DISTRIBUTION WIDTH 23.1 % (11.6-14.6)
[2021-08-29] MEDS: INSULIN GLARGINE UD 100 UNITS/ML SYR SUBCUT SCH (22:39)
[2021-08-30] VITALS: BP 108/48
[2021-08-30 04:00] VITALS: BP 115/58
[2021-08-30] MEDS: ENOXAPARIN 80MG/0.8ML SYR SUBCUT SCH ×2 (06:25→16:59)
[2021-08-30] MEDS: GLYBURIDE 5MG TABLET PO SCH ×2 (06:25→06:28)
[2021-08-30] MEDS: BLOOD SUGAR DIAGNOSTIC STRIP TEST SCH ×4 (06:25→21:00)
[2021-08-30] MEDS: MIDODRINE HCL 5MG TABLET PO SCH ×3 (06:31→22:08)
[2021-08-30] MEDS: INSULIN LISPRO 100 UNITS/ML SUBCUT SCH ×7 (07:20→22:16)
[2021-08-30 08:00] VITALS: BP 106/52
[2021-08-30] MEDS: IPRATROPIUM/ALBUTEROL 0.5-3(2.5)MG/3ML NEB HHN SCH ×4 (08:35→20:53)
[2021-08-30] MEDS: DOCUSATE SODIUM 100MG CAPSULE PO PRN (09:08)
[2021-08-30] MEDS: PREDNISONE 10MG TABLET PO SCH (09:09)
[2021-08-30] MEDS: FUROSEMIDE 40MG TABLET PO SCH (09:09)
[2021-08-30] MEDS: POTASSIUM CHLORIDE 20MEQ TABLET SR PO SCH (09:09)
[2021-08-30] MEDS: PANTOPRAZOLE SODIUM 40 MG/VIAL IV SCH (11:45)
[2021-08-30] MEDS: INSULIN GLARGINE UD 100 UNITS/ML SYR SUBCUT SCH ×2 (11:58→22:17)
[2021-08-30 12:00] VITALS: BP 100/74
[2021-08-30 16:00] VITALS: BP 104/53
[2021-08-30 20:00] VITALS: BP 93/54
[2021-08-30] MEDS ORDERED: CEFEPIME 1,000 MG in DEXTROSE 5% WATER 50 ML IV SCH (21:30)
[2021-08-30] MEDS: CEFEPIME 1,000 MG in DEXTROSE 5% WATER 50 ML IV SCH (22:36)
[2021-08-31] VITALS (7 sets, daily range): BP systolic 80–103; BP diastolic 43–60
[2021-08-31] MEDS: IPRATROPIUM/ALBUTEROL 0.5-3(2.5)MG/3ML NEB HHN SCH ×5 (00:27→21:48)
[2021-08-31 03:14] LABS: HEMATOCRIT 29.4 % (36.0-48.0)
[2021-08-31] MEDS: MIDODRINE HCL 5MG TABLET PO SCH ×3 (06:00→23:32)
[2021-08-31] MEDS: ENOXAPARIN 80MG/0.8ML SYR SUBCUT SCH (06:00)
[2021-08-31] MEDS: INSULIN LISPRO 100 UNITS/ML SUBCUT SCH ×7 (07:20→23:31)
[2021-08-31] MEDS: BLOOD SUGAR DIAGNOSTIC STRIP TEST SCH ×4 (07:20→21:00)
[2021-08-31] MEDS: GLYBURIDE 5MG TABLET PO SCH (07:20)
[2021-08-31] MEDS ORDERED: NALOXONE HCL 0.4MG/ML VIAL IV PRN (08:15)
[2021-08-31] MEDS: POTASSIUM CHLORIDE 20MEQ TABLET SR PO SCH (08:58)
[2021-08-31] MEDS: FUROSEMIDE 40MG TABLET PO SCH (08:58)
[2021-08-31] MEDS: PREDNISONE 10MG TABLET PO SCH (08:58)
[2021-08-31] MEDS: PANTOPRAZOLE SODIUM 40 MG/VIAL IV SCH (08:58)
[2021-08-31] MEDS: CEFEPIME 1,000 MG in DEXTROSE 5% WATER 50 ML IV SCH (08:59)
[2021-08-31] MEDS: HYDROCODONE/ACETAMINOPHEN 5/325MG TABLET PO PRN (09:44)
[2021-08-31] MEDS: INSULIN GLARGINE UD 100 UNITS/ML SYR SUBCUT SCH ×2 (10:00→23:34)
[2021-08-31] MEDS ORDERED: SODIUM CHLORIDE 0.45% 500 ML IV NR (11:15)
[2021-08-31] MEDS: SORBITOL 70% SOLN 30ML PO SCH ×2 (16:00→20:00)
[2021-08-31] MEDS: BISACODYL 5MG TABLET PO SCH ×2 (16:00→20:00)
[2021-08-31] MEDS: DIGOXIN 125MCG TABLET PO SCH (17:59)
[2021-08-31] MEDS: METOCLOPRAMIDE HCL 5MG TABLET PO SCH ×2 (18:00→23:32)
[2021-08-31] MEDS ORDERED: CEFTRIAXONE 2 G PREMIX 50 ML IV SCH (18:45)
[2021-08-31] MEDS: SODIUM CHLORIDE 0.9% INJ 3ML FLUSH IVF SCH (23:33)
[2021-08-31] MEDS: CEFTRIAXONE 2 G in DEXTROSE 5% WATER 50 ML IV SCH (23:37)
[2021-09-01] VITALS: BP 85/47
[2021-09-01] MEDS: METOCLOPRAMIDE HCL 5MG TABLET PO SCH
[2021-09-01] MEDS: SORBITOL 70% SOLN 30ML PO SCH
[2021-09-01] MEDS: BISACODYL 5MG TABLET PO SCH
[2021-09-01] MEDS: IPRATROPIUM/ALBUTEROL 0.5-3(2.5)MG/3ML NEB HHN SCH ×5 (01:15→21:37)
[2021-09-01 04:00] VITALS: BP 84/50
[2021-09-01] MEDS: SODIUM CHLORIDE 0.9% INJ 3ML FLUSH IVF SCH ×3 (06:51→22:01)
[2021-09-01] MEDS: MIDODRINE HCL 5MG TABLET PO SCH ×3 (06:52→22:00)
[2021-09-01] MEDS: NA PHOS,M-B/NA PHOS,DI-BA ENEMA 118ML PR SCH ×2 (07:00→11:00)
[2021-09-01 07:05] LABS: PARTIAL THROMBOPLASTIN TIME 21.9 sec (23.4-31.0); PROTHROMBIN TIME 10.5 sec (9.6-11.0)
[2021-09-01] MEDS: BLOOD SUGAR DIAGNOSTIC STRIP TEST SCH ×4 (07:20→21:37)
[2021-09-01] MEDS: GLYBURIDE 5MG TABLET PO SCH (07:20)
[2021-09-01] MEDS: INSULIN LISPRO 100 UNITS/ML SUBCUT SCH ×7 (07:20→22:01)
[2021-09-01 07:44] LABS: HEMATOCRIT. 27.2 % (36.0-48.0); HEMOGLOBIN. 8.6 g/dL (12.0-16.0); MEAN CORPUSCULAR HEMOGLOBIN 27.7 pg (28.0-32.0); MEAN CORPUSCULAR VOLUME 87.9 fL (81.0-99.0); MEAN PLATELET VOLUME 9.3 fl (7.4-10.4); PLATELET 209 x1000/uL (130-400); RED BLOOD CELL COUNT 3.09 mill/uL (4.2-5.4); RED CELL DISTRIBUTION WIDTH 24.6 % (11.6-14.6)
[2021-09-01 08:00] VITALS: BP 84/53
[2021-09-01] MEDS: INSULIN GLARGINE UD 100 UNITS/ML SYR SUBCUT SCH ×2 (10:00→22:00)
[2021-09-01] MEDS: POTASSIUM CHLORIDE 20MEQ TABLET SR PO SCH (10:08)
[2021-09-01] MEDS: FUROSEMIDE 20MG TABLET PO SCH (10:08)
[2021-09-01] MEDS: BISACODYL 5MG TABLET PO PRN (10:08)
[2021-09-01] MEDS: PREDNISONE 10MG TABLET PO SCH (10:08)
[2021-09-01] MEDS: PANTOPRAZOLE SODIUM 40 MG/VIAL IV SCH (10:09)
[2021-09-01 12:00] VITALS: BP 93/63
[2021-09-01 14:09] LABS: NUCLEATED RED BLOOD CELLS 2 /100 WBC; PLATELET ESTIMATE NORMAL
[2021-09-01 16:00] VITALS: BP 86/50
[2021-09-01 20:00] VITALS: BP 97/58
[2021-09-01] MEDS: CEFTRIAXONE 2 G in DEXTROSE 5% WATER 50 ML IV SCH (21:30)
[2021-09-01 22:00] LABS: HEMATOCRIT 27.1 % (36.0-48.0); HEMOGLOBIN 8.5 g/dL (12.0-16.0)
[2021-09-02] VITALS: BP 111/58
[2021-09-02] MEDS: IPRATROPIUM/ALBUTEROL 0.5-3(2.5)MG/3ML NEB HHN SCH ×2 (00:20→04:00)
[2021-09-02 04:00] VITALS: BP 110/61
[2021-09-02] MEDS: SODIUM CHLORIDE 0.9% INJ 3ML FLUSH IVF SCH ×3 (06:29→22:10)
[2021-09-02] MEDS: MIDODRINE HCL 5MG TABLET PO SCH ×3 (06:29→22:14)
[2021-09-02] MEDS: BLOOD SUGAR DIAGNOSTIC STRIP TEST SCH ×4 (07:20→20:49)
[2021-09-02] MEDS: INSULIN LISPRO 100 UNITS/ML SUBCUT SCH ×7 (07:20→21:00)
[2021-09-02] MEDS: GLYBURIDE 5MG TABLET PO SCH (07:20)
[2021-09-02 08:00] VITALS: BP 95/54
[2021-09-02] MEDS: PANTOPRAZOLE SODIUM 40 MG/VIAL IV SCH (08:25)
[2021-09-02] MEDS: POTASSIUM CHLORIDE 20MEQ TABLET SR PO SCH (08:25)
[2021-09-02] MEDS: FUROSEMIDE 20MG TABLET PO SCH (08:25)
[2021-09-02] MEDS: PREDNISONE 10MG TABLET PO SCH (08:25)
[2021-09-02] MEDS: INSULIN GLARGINE UD 100 UNITS/ML SYR SUBCUT SCH ×2 (09:06→22:31)
[2021-09-02 09:16] LABS: BASOPHILS % 0.3 % (0.0-2.0); EOSINOPHILS % 0.8 % (0.0-5.0); HEMATOCRIT. 27.4 % (36.0-48.0); HEMOGLOBIN. 8.5 g/dL (12.0-16.0); LYMPHOCYTES % 11.8 % (20.0-50.0); MEAN CORPUSCULAR HEMOGLOBIN 27.9 pg (28.0-32.0); MEAN CORPUSCULAR VOLUME 89.4 fL (81.0-99.0); MEAN PLATELET VOLUME 8.7 fl (7.4-10.4); MONOCYTES % 5.3 % (2.0-8.0); NEUTROPHILS % 81.8 % (40.0-76.0); PLATELET 169 x1000/uL (130-400); RED BLOOD CELL COUNT 3.06 mill/uL (4.2-5.4); RED CELL DISTRIBUTION WIDTH 25.4 % (11.6-14.6)
[2021-09-02 09:27] LABS: CHLORIDE 110 mEq/L (98-107)
[2021-09-02 12:00] VITALS: BP 96/45
[2021-09-02] MEDS: DIGOXIN 125MCG TABLET PO SCH (16:01)
[2021-09-02] MEDS ORDERED: IPRATROPIUM/ALBUTEROL 0.5-3(2.5)MG/3ML NEB HHN PRN (17:00)
[2021-09-02 20:00] VITALS: BP 98/60
[2021-09-02] MEDS: CEFTRIAXONE 2 G in DEXTROSE 5% WATER 50 ML IV SCH (20:00)
[2021-09-03] VITALS: BP 98/53
[2021-09-03 04:00] VITALS: BP 106/55
[2021-09-03] MEDS: MIDODRINE HCL 5MG TABLET PO SCH ×3 (05:57→21:42)
[2021-09-03] MEDS: SODIUM CHLORIDE 0.9% INJ 3ML FLUSH IVF SCH ×3 (05:57→21:08)
[2021-09-03] MEDS: GLYBURIDE 5MG TABLET PO SCH (06:22)
[2021-09-03] MEDS: BLOOD SUGAR DIAGNOSTIC STRIP TEST SCH ×4 (06:44→21:02)
[2021-09-03] MEDS: INSULIN LISPRO 100 UNITS/ML SUBCUT SCH ×7 (07:20→21:53)
[2021-09-03 08:00] VITALS: BP 105/57
[2021-09-03] MEDS: PREDNISONE 20MG TABLET PO SCH (08:18)
[2021-09-03] MEDS: POTASSIUM CHLORIDE 20MEQ TABLET SR PO SCH (08:19)
[2021-09-03] MEDS: FUROSEMIDE 20MG TABLET PO SCH (08:19)
[2021-09-03] MEDS: PANTOPRAZOLE SODIUM 40 MG/VIAL IV SCH (08:19)
[2021-09-03 09:01] LABS: BASOPHILS % 0.2 % (0.0-2.0); EOSINOPHILS % 0.9 % (0.0-5.0); HEMATOCRIT. 27.4 % (36.0-48.0); HEMOGLOBIN. 8.6 g/dL (12.0-16.0); LYMPHOCYTES % 16.8 % (20.0-50.0); MEAN CORPUSCULAR HEMOGLOBIN 28.5 pg (28.0-32.0); MEAN CORPUSCULAR VOLUME 90.2 fL (81.0-99.0); MEAN PLATELET VOLUME 9.1 fl (7.4-10.4); MONOCYTES % 7.6 % (2.0-8.0); NEUTROPHILS % 74.5 % (40.0-76.0); PLATELET 182 x1000/uL (130-400); RED BLOOD CELL COUNT 3.03 mill/uL (4.2-5.4); RED CELL DISTRIBUTION WIDTH 25.5 % (11.6-14.6)
[2021-09-03 09:16] LABS: CHLORIDE 111 mEq/L (98-107)
[2021-09-03] MEDS: INSULIN GLARGINE UD 100 UNITS/ML SYR SUBCUT SCH ×2 (11:05→21:53)
[2021-09-03 12:00] VITALS: BP 121/55
[2021-09-03 16:00] VITALS: BP 119/55
[2021-09-03 20:00] VITALS: BP 100/70
[2021-09-03] MEDS: CEFTRIAXONE 2 G in DEXTROSE 5% WATER 50 ML IV SCH (21:03)
[2021-09-04] VITALS: BP 113/61
[2021-09-04] MEDS: HYDROCODONE/ACETAMINOPHEN 5/325MG TABLET PO PRN (00:30)
[2021-09-04 04:00] VITALS: BP 108/62
[2021-09-04] MEDS: SODIUM CHLORIDE 0.9% INJ 3ML FLUSH IVF SCH ×3 (06:02→23:06)
[2021-09-04] MEDS: MIDODRINE HCL 5MG TABLET PO SCH ×3 (06:02→23:06)
[2021-09-04] MEDS: INSULIN LISPRO 100 UNITS/ML SUBCUT SCH ×7 (06:29→23:15)
[2021-09-04] MEDS: BLOOD SUGAR DIAGNOSTIC STRIP TEST SCH ×4 (06:29→21:00)
[2021-09-04 08:00] VITALS: BP 92/53
[2021-09-04] MEDS: POTASSIUM CHLORIDE 20MEQ TABLET SR PO SCH (09:27)
[2021-09-04] MEDS: GLYBURIDE 5MG TABLET PO SCH (09:27)
[2021-09-04] MEDS: PANTOPRAZOLE SODIUM 40 MG/VIAL IV SCH (09:28)
[2021-09-04] MEDS: FUROSEMIDE 20MG TABLET PO SCH (09:28)
[2021-09-04] MEDS: PREDNISONE 20MG TABLET PO SCH (09:28)
[2021-09-04 12:00] VITALS: BP 102/44
[2021-09-04] MEDS: INSULIN GLARGINE UD 100 UNITS/ML SYR SUBCUT SCH ×2 (12:14→23:15)
[2021-09-04 16:00] VITALS: BP 108/53
[2021-09-04] MEDS: DIGOXIN 125MCG TABLET PO SCH (17:43)
[2021-09-04 20:00] VITALS: BP 107/48
[2021-09-04] MEDS: CEFTRIAXONE 2 G in DEXTROSE 5% WATER 50 ML IV SCH (23:05)
[2021-09-05] VITALS (8 sets, daily range): BP systolic 91–128; BP diastolic 34–78
[2021-09-05] MEDS: GLYBURIDE 5MG TABLET PO SCH (06:28)
[2021-09-05] MEDS: SODIUM CHLORIDE 0.9% INJ 3ML FLUSH IVF SCH ×2 (06:28→14:00)
[2021-09-05] MEDS: MIDODRINE HCL 5MG TABLET PO SCH ×3 (06:28→21:12)
[2021-09-05] MEDS: BLOOD SUGAR DIAGNOSTIC STRIP TEST SCH ×4 (06:38→21:00)
[2021-09-05] MEDS: INSULIN LISPRO 100 UNITS/ML SUBCUT SCH ×6 (07:20→21:25)
[2021-09-05] MEDS ORDERED: NALOXONE HCL 0.4MG/ML VIAL IV PRN (09:45)
[2021-09-05] MEDS: PANTOPRAZOLE SODIUM 40 MG/VIAL IV SCH (09:56)
[2021-09-05] MEDS: FUROSEMIDE 20MG TABLET PO SCH (10:00)
[2021-09-05] MEDS: POTASSIUM CHLORIDE 20MEQ TABLET SR PO SCH (10:00)
[2021-09-05] MEDS: PREDNISONE 20MG TABLET PO SCH (10:00)
[2021-09-05] MEDS: INSULIN GLARGINE UD 100 UNITS/ML SYR SUBCUT SCH (10:02)
[2021-09-05] MEDS: IPRATROPIUM/ALBUTEROL 0.5-3(2.5)MG/3ML NEB HHN SCH ×2 (10:05→17:36)
[2021-09-05] MEDS: HYDROCODONE/ACETAMINOPHEN 5/325MG TABLET PO PRN ×3 (10:08→21:12)
[2021-09-05] MEDS: DOCUSATE SODIUM 100MG CAPSULE PO PRN (10:17)
[2021-09-05] MEDS: BISACODYL 5MG TABLET PO PRN (10:17)
== END 2021-09-05 22:50 | DRG 177 ==
LOC: ER 00:28 → ENRESERV 08:06 → 5EST 09:18 → 7WST 07-28 15:07 → 7EST 08-05 16:52 → CVICU 08-20 14:17 → 3WST 08-25 12:56 → 6EST 08-28 18:15
PROVIDERS: ADMIT Internal Medicine Critical Care Medicine; ATTEND Internal Medicine Critical Care Medicine
PROC: 05H533Z Insertion of Infusion Device into Right Subclavian Vein, Percutaneous Approach (ICD-10-PCS; principal; 2021-08-03)
PROC: B546ZZA Ultrasonography of Right Subclavian Vein, Guidance (ICD-10-PCS; 2021-08-03)
PROC: 5A09357 Assistance with Respiratory Ventilation, Less than 24 Consecutive Hours, Continuous Positive Airway Pressure (ICD-10-PCS; 2021-08-20)
PROC: 5A09457 Assistance with Respiratory Ventilation, 24-96 Consecutive Hours, Continuous Positive Airway Pressure (ICD-10-PCS; 2021-08-21)
DX: U07.1 COVID-19 (principal); E43 Unspecified severe protein-calorie malnutrition; J96.21 Acute and chronic respiratory failure with hypoxia; J12.82 Pneumonia due to coronavirus disease 2019; J15.9 Unspecified bacterial pneumonia; R57.0 Cardiogenic shock; J96.22 Acute and chronic respiratory failure with hypercapnia; I13.0 Hypertensive heart and chronic kidney disease with heart failure and stage 1 through stage 4 chronic kidney disease, or unspecified chronic kidney disease; G62.81 Critical illness polyneuropathy; G82.20 Paraplegia, unspecified; I42.8 Other cardiomyopathies; I48.19 Other persistent atrial fibrillation; J44.0 Chronic obstructive pulmonary disease with (acute) lower respiratory infection; N39.0 Urinary tract infection, site not specified; N17.9 Acute kidney failure, unspecified; D68.59 Other primary thrombophilia; K92.1 Melena; E03.9 Hypothyroidism, unspecified; E11.22 Type 2 diabetes mellitus with diabetic chronic kidney disease; E11.40 Type 2 diabetes mellitus with diabetic neuropathy, unspecified; E78.5 Hyperlipidemia, unspecified; I25.10 Atherosclerotic heart disease of native coronary artery without angina pectoris; I25.5 Ischemic cardiomyopathy; I49.5 Sick sinus syndrome; I50.9 Heart failure, unspecified; K21.9 Gastro-esophageal reflux disease without esophagitis; M10.9 Gout, unspecified; M19.90 Unspecified osteoarthritis, unspecified site; N18.9 Chronic kidney disease, unspecified; B96.20 Unspecified Escherichia coli [E. coli] as the cause of diseases classified elsewhere; D69.6 Thrombocytopenia, unspecified; E11.51 Type 2 diabetes mellitus with diabetic peripheral angiopathy without gangrene; E66.9 Obesity, unspecified; E78.00 Pure hypercholesterolemia, unspecified; E87.5 Hyperkalemia; F32.9 Major depressive disorder, single episode, unspecified; I27.21 Secondary pulmonary arterial hypertension; K59.00 Constipation, unspecified; M40.209 Unspecified kyphosis, site unspecified; R26.9 Unspecified abnormalities of gait and mobility; T46.0X5A Adverse effect of cardiac-stimulant glycosides and drugs of similar action, initial encounter; R53.81 Other malaise; E83.39 Other disorders of phosphorus metabolism; T38.0X5A Adverse effect of glucocorticoids and synthetic analogues, initial encounter; Z79.01 Long term (current) use of anticoagulants; Z79.84 Long term (current) use of oral hypoglycemic drugs; Z86.711 Personal history of pulmonary embolism; Z79.4 Long term (current) use of insulin; Z86.718 Personal history of other venous thrombosis and embolism; Z95.5 Presence of coronary angioplasty implant and graft; Z79.899 Other long term (current) drug therapy; Z88.8 Allergy status to other drugs, medicaments and biological substances; Z90.710 Acquired absence of both cervix and uterus; Z95.810 Presence of automatic (implantable) cardiac defibrillator; Z99.81 Dependence on supplemental oxygen; Y92.89 Other specified places as the place of occurrence of the external cause; Z68.27 Body mass index [BMI] 27.0-27.9, adult
CPT/HCPCS: 36415; 36600; 71045; 74176; 76937; 78582; 80048; 80053; 80162; 81003; 82270; 82375; 82728; 82805; 82962; 83036; 83605; 83735; 83880; 84100; 84145; 84439; 84443; 84481; 84484; 85014; 85018; 85025; 85027; 85379; 86140; 87077; 87186; 87426; 92610; 93005; 93306; 93970; 94640; 94660; 97110; 97116; 97162; 97164; 97166; 97168; 97530; 97535; 99285; A6261; A9558; C1725; C1893; C9113; J0282; J0692; J0696; J1100; J1120; J1160; J1650; J1815; J1940; J2370; J2405; J2543; J2920; J3370; J3490; J7040; J7060; J7070; J7512; J7608; J8540; J8597; Q0163; U0003; U0005; A4315

== ENCOUNTER 2021-09-12 13:20 | Inpatient (IN) | payer BC, MEDICARE ==
[~2021-09-12] VITALS: Ht 167.6 cm; Wt 83.7 kg
[2021-09-12] MEDS ORDERED: SODIUM CHLORIDE 0.9% 1,000 ML IV ONE (14:15)
[2021-09-12 14:42] LABS: CHLORIDE 107 mEq/L (98-107)
[2021-09-12 14:43] LABS: BASOPHILS % 0.5 % (0.0-2.0); EOSINOPHILS % 0.2 % (0.0-5.0); HEMATOCRIT. 23.4 % (36.0-48.0); HEMOGLOBIN. 7.1 g/dL (12.0-16.0); LYMPHOCYTES % 14.4 % (20.0-50.0); MEAN CORPUSCULAR HEMOGLOBIN 27.7 pg (28.0-32.0); MEAN CORPUSCULAR VOLUME 90.7 fL (81.0-99.0); MEAN PLATELET VOLUME 8.9 fl (7.4-10.4); MONOCYTES % 4.6 % (2.0-8.0); NEUTROPHILS % 80.3 % (40.0-76.0); PLATELET 151 x1000/uL (130-400); RED BLOOD CELL COUNT 2.58 mill/uL (4.2-5.4); RED CELL DISTRIBUTION WIDTH 26.8 % (11.6-14.6)
[2021-09-12 15:06] LABS: DIGOXIN 0.8 ng/mL (0.9-2.0)
[2021-09-12 17:28] LABS: PLATELET ESTIMATE NORMAL
[2021-09-12] MEDS ORDERED: GUAIFENESIN 200MG/10ML SUGAR FREE UDC PO PRN (18:00)
[2021-09-12] MEDS ORDERED: HYDROCODONE/ACETAMINOPHEN 5/325MG TABLET PO PRN (18:00)
[2021-09-12] MEDS ORDERED: CLONIDINE 0.1MG TABLET PO PRN (18:00)
[2021-09-12] MEDS ORDERED: DEXTROSE 50% WATER 50ML SYRINGE IV PRN (18:00)
[2021-09-12] MEDS ORDERED: MAGNESIUM/ALUMINUM HYDROXIDE/SIMETHICONE 30ML UDC PO PRN (18:00)
[2021-09-12] MEDS ORDERED: ONDANSETRON HCL 4MG/2ML INJ IV PRN (18:00)
[2021-09-12] MEDS ORDERED: IPRATROPIUM/ALBUTEROL 0.5-3(2.5)MG/3ML NEB NEB PRN (18:00)
[2021-09-12] MEDS ORDERED: NALOXONE HCL 1 MG/ML 2ML VIAL IV PRN (18:00)
[2021-09-12] MEDS: BLOOD SUGAR DIAGNOSTIC STRIP TEST SCH ×2 (18:33→21:00)
[2021-09-12] MEDS: INSULIN LISPRO 100 UNITS/ML SUBCUT SCH ×2 (18:41→21:00)
[2021-09-12] MEDS: DOCUSATE SODIUM 100MG CAPSULE PO PRN (18:42)
[2021-09-12] MEDS: MIDODRINE HCL 5MG TABLET PO SCH (18:47)
[2021-09-12] MEDS: DIGOXIN 125MCG TABLET PO SCH (19:35)
[2021-09-12] MEDS ORDERED: ZOLPIDEM TARTRATE 5MG TABLET PO PRN (21:00)
[2021-09-12] MEDS: SODIUM CHLORIDE 0.9% INJ 3ML FLUSH IVF SCH (22:00)
[2021-09-12] MEDS ORDERED: INSULIN GLARGINE UD 100 UNITS/ML SYR SUBCUT SCH (22:00)
[2021-09-12 23:00] VITALS: BP 107/60
[2021-09-12 23:51] VITALS: BP 113/49
[2021-09-13] VITALS (15 sets, daily range): BP systolic 86–120; BP diastolic 36–72
[2021-09-13] MEDS: SODIUM CHLORIDE 0.9% INJ 3ML FLUSH IVF SCH ×3 (05:00→21:11)
[2021-09-13] MEDS: INSULIN LISPRO 100 UNITS/ML SUBCUT SCH ×4 (05:57→21:40)
[2021-09-13] MEDS: BLOOD SUGAR DIAGNOSTIC STRIP TEST SCH ×4 (05:57→20:25)
[2021-09-13] MEDS: GLYBURIDE 5MG TABLET PO SCH (06:00)
[2021-09-13] MEDS: PANTOPRAZOLE 40MG DR TABLET PO SCH (06:00)
[2021-09-13 06:41] LABS: CHLORIDE 110 mEq/L (98-107)
[2021-09-13 06:50] LABS: TOTAL IRON BINDING CAPACITY 237 ug/dL (250-450)
[2021-09-13 06:51] LABS: CREATINE KINASE 30 IU/L (26-192)
[2021-09-13 06:54] LABS: CREATINE KINASE MB FRACTION 2.4 ng/mL (0.5-3.6)
[2021-09-13 07:25] LABS: BASOPHILS % 0.6 % (0.0-2.0); EOSINOPHILS % 0.5 % (0.0-5.0); HEMATOCRIT. 22.2 % (36.0-48.0); HEMOGLOBIN. 7.2 g/dL (12.0-16.0); MEAN CORPUSCULAR HEMOGLOBIN 28.5 pg (28.0-32.0); MEAN CORPUSCULAR VOLUME 88.1 fL (81.0-99.0); MEAN PLATELET VOLUME 8.8 fl (7.4-10.4); MONOCYTES % 5.3 % (2.0-8.0); NEUTROPHILS % 74.6 % (40.0-76.0); PLATELET 165 x1000/uL (130-400); RED BLOOD CELL COUNT 2.52 mill/uL (4.2-5.4); RED CELL DISTRIBUTION WIDTH 25.6 % (11.6-14.6)
[2021-09-13] MEDS: ACETAMINOPHEN 325MG TABLET PO PRN ×2 (08:56→23:14)
[2021-09-13] MEDS: FUROSEMIDE 40MG/4ML VIAL IVP SCH (08:56)
[2021-09-13] MEDS: MIDODRINE HCL 5MG TABLET PO SCH ×3 (08:57→17:48)
[2021-09-13] MEDS: DOCUSATE SODIUM 100MG CAPSULE PO PRN (08:57)
[2021-09-13] MEDS: PREDNISONE 20MG TABLET PO SCH (08:57)
[2021-09-13] MEDS ORDERED: INSULIN GLARGINE UD 100 UNITS/ML SYR SUBCUT SCH (10:00)
[2021-09-13] MEDS ORDERED: FUROSEMIDE 40MG/4ML VIAL IVP SCH (10:00)
[2021-09-13] MEDS: PSYLLIUM SEED PACKET PO SCH (17:30)
[2021-09-13 21:34] LABS: BASOPHILS % 0.3 % (0.0-2.0); EOSINOPHILS % 0.1 % (0.0-5.0); HEMATOCRIT. 26.8 % (36.0-48.0); HEMOGLOBIN. 8.7 g/dL (12.0-16.0); LYMPHOCYTES % 18.9 % (20.0-50.0); MEAN CORPUSCULAR HEMOGLOBIN 28.3 pg (28.0-32.0); MEAN CORPUSCULAR VOLUME 87.5 fL (81.0-99.0); MEAN PLATELET VOLUME 8.9 fl (7.4-10.4); MONOCYTES % 4.8 % (2.0-8.0); NEUTROPHILS % 75.9 % (40.0-76.0); PLATELET 165 x1000/uL (130-400); RED BLOOD CELL COUNT 3.06 mill/uL (4.2-5.4); RED CELL DISTRIBUTION WIDTH 22.9 % (11.6-14.6)
[2021-09-13] MEDS: CEFTRIAXONE 2 G in DEXTROSE 5% WATER 50 ML IV SCH (21:40)
[2021-09-13 22:26] LABS: PLATELET ESTIMATE NORMAL
[2021-09-13] MEDS: INSULIN GLARGINE UD 100 UNITS/ML SYR SUBCUT SCH (23:10)
[2021-09-14] VITALS (12 sets, daily range): BP systolic 93–126; BP diastolic 42–66
[2021-09-14] MEDS: SODIUM CHLORIDE 0.9% INJ 3ML FLUSH IVF SCH ×3 (05:07→21:14)
[2021-09-14] MEDS: PANTOPRAZOLE 40MG DR TABLET PO SCH (05:53)
[2021-09-14] MEDS: LEVOTHYROXINE SODIUM 25MCG TABLET PO SCH (05:53)
[2021-09-14] MEDS: GLYBURIDE 5MG TABLET PO SCH (05:53)
[2021-09-14] MEDS: INSULIN LISPRO 100 UNITS/ML SUBCUT SCH ×4 (05:57→21:14)
[2021-09-14] MEDS: BLOOD SUGAR DIAGNOSTIC STRIP TEST SCH ×4 (05:57→20:50)
[2021-09-14 06:55] LABS: BASOPHILS % 0.5 % (0.0-2.0); EOSINOPHILS % 0.2 % (0.0-5.0); HEMATOCRIT. 26.5 % (36.0-48.0); HEMOGLOBIN. 8.6 g/dL (12.0-16.0); LYMPHOCYTES % 25.4 % (20.0-50.0); MEAN CORPUSCULAR HEMOGLOBIN 28.5 pg (28.0-32.0); MEAN PLATELET VOLUME 8.7 fl (7.4-10.4); MONOCYTES % 6.1 % (2.0-8.0); NEUTROPHILS % 67.8 % (40.0-76.0); PLATELET 171 x1000/uL (130-400); RED BLOOD CELL COUNT 3.01 mill/uL (4.2-5.4); RED CELL DISTRIBUTION WIDTH 22.7 % (11.6-14.6)
[2021-09-14 06:56] LABS: INR 1.1; PROTHROMBIN TIME 11.4 sec (9.6-11.0)
[2021-09-14 07:02] LABS: CHLORIDE 109 mEq/L (98-107)
[2021-09-14] MEDS: PREDNISONE 20MG TABLET PO SCH (08:10)
[2021-09-14] MEDS: PSYLLIUM SEED PACKET PO SCH ×3 (08:10→16:20)
[2021-09-14] MEDS: MIDODRINE HCL 5MG TABLET PO SCH ×3 (08:11→16:20)
[2021-09-14] MEDS: IPRATROPIUM/ALBUTEROL 0.5-3(2.5)MG/3ML NEB HHN SCH ×3 (08:14→21:05)
[2021-09-14] MEDS: FUROSEMIDE 40MG/4ML VIAL IVP SCH (08:40)
[2021-09-14] MEDS: INSULIN GLARGINE UD 100 UNITS/ML SYR SUBCUT SCH ×2 (10:46→22:23)
[2021-09-14] MEDS ORDERED: MORPHINE SULFATE 2 MG/ML CPJ (NOT FOR IM USE) IV PRN (12:45)
[2021-09-14] MEDS ORDERED: MORPHINE SULFATE 2 MG/ML CPJ (NOT FOR IM USE) IV ONE (13:15)
[2021-09-14] MEDS ORDERED: MORPHINE SULFATE 2 MG/ML CPJ (NOT FOR IM USE) IV NR ×2 (13:30)
[2021-09-14] MEDS: DIGOXIN 125MCG TABLET PO SCH (17:05)
[2021-09-14] MEDS: CEFTRIAXONE 2 G in DEXTROSE 5% WATER 50 ML IV SCH (20:49)
[2021-09-15] VITALS (10 sets, daily range): BP systolic 91–129; BP diastolic 41–76
[2021-09-15] MEDS: IPRATROPIUM/ALBUTEROL 0.5-3(2.5)MG/3ML NEB HHN SCH ×3 (00:49→21:09)
[2021-09-15] MEDS: LEVOTHYROXINE SODIUM 25MCG TABLET PO SCH (05:58)
[2021-09-15] MEDS: GLYBURIDE 5MG TABLET PO SCH (05:58)
[2021-09-15] MEDS: BLOOD SUGAR DIAGNOSTIC STRIP TEST SCH ×4 (05:58→20:34)
[2021-09-15] MEDS: PANTOPRAZOLE 40MG DR TABLET PO SCH (05:58)
[2021-09-15] MEDS: SODIUM CHLORIDE 0.9% INJ 3ML FLUSH IVF SCH ×3 (05:58→21:03)
[2021-09-15 06:56] LABS: CHLORIDE 107 mEq/L (98-107)
[2021-09-15] MEDS: INSULIN LISPRO 100 UNITS/ML SUBCUT SCH ×4 (07:20→21:01)
[2021-09-15 07:27] LABS: BASOPHILS % 0.3 % (0.0-2.0); EOSINOPHILS % 0.2 % (0.0-5.0); HEMOGLOBIN. 8.8 g/dL (12.0-16.0); LYMPHOCYTES % 23.8 % (20.0-50.0); MEAN CORPUSCULAR HEMOGLOBIN 28.4 pg (28.0-32.0); MEAN CORPUSCULAR VOLUME 86.9 fL (81.0-99.0); MEAN PLATELET VOLUME 8.7 fl (7.4-10.4); MONOCYTES % 7.6 % (2.0-8.0); NEUTROPHILS % 68.1 % (40.0-76.0); PLATELET 191 x1000/uL (130-400); RED BLOOD CELL COUNT 3.11 mill/uL (4.2-5.4); RED CELL DISTRIBUTION WIDTH 22.6 % (11.6-14.6)
[2021-09-15] MEDS: PSYLLIUM SEED PACKET PO SCH ×3 (08:17→16:22)
[2021-09-15] MEDS: MIDODRINE HCL 5MG TABLET PO SCH ×3 (08:18→16:22)
[2021-09-15] MEDS: PREDNISONE 20MG TABLET PO SCH (08:18)
[2021-09-15] MEDS: FUROSEMIDE 40MG/4ML VIAL IVP SCH (08:18)
[2021-09-15] MEDS: INSULIN GLARGINE UD 100 UNITS/ML SYR SUBCUT SCH ×2 (11:07→21:02)
[2021-09-15] MEDS ORDERED: SIMETHICONE 80MG TABLET CHEW PO PRN (12:45)
[2021-09-15] MEDS: DILTIAZEM HCL 30MG TABLET PO SCH ×2 (18:10→21:00)
[2021-09-15] MEDS: CEFTRIAXONE 2 G in DEXTROSE 5% WATER 50 ML IV SCH (20:33)
[2021-09-15] MEDS ORDERED: MIRTAZAPINE 15MG TABLET PO SCH (21:00)
[2021-09-16] VITALS: BP 106/49
[2021-09-16] MEDS: IPRATROPIUM/ALBUTEROL 0.5-3(2.5)MG/3ML NEB HHN SCH ×3 (00:47→12:17)
[2021-09-16] MEDS: LEVOTHYROXINE SODIUM 25MCG TABLET PO SCH (05:51)
[2021-09-16] MEDS: PANTOPRAZOLE 40MG DR TABLET PO SCH (05:52)
[2021-09-16] MEDS: GLYBURIDE 5MG TABLET PO SCH ×2 (05:52→06:50)
[2021-09-16] MEDS: SODIUM CHLORIDE 0.9% INJ 3ML FLUSH IVF SCH ×2 (05:52→12:34)
[2021-09-16] MEDS: BLOOD SUGAR DIAGNOSTIC STRIP TEST SCH ×2 (05:52→12:30)
[2021-09-16] MEDS: DILTIAZEM HCL 30MG TABLET PO SCH ×2 (05:52→12:34)
[2021-09-16 06:58] LABS: BASOPHILS % 0.3 % (0.0-2.0); EOSINOPHILS % 0.2 % (0.0-5.0); HEMATOCRIT. 26.3 % (36.0-48.0); HEMOGLOBIN. 8.5 g/dL (12.0-16.0); LYMPHOCYTES % 20.7 % (20.0-50.0); MEAN CORPUSCULAR HEMOGLOBIN 28.7 pg (28.0-32.0); MEAN CORPUSCULAR VOLUME 88.5 fL (81.0-99.0); MEAN PLATELET VOLUME 8.6 fl (7.4-10.4); MONOCYTES % 6.5 % (2.0-8.0); NEUTROPHILS % 72.3 % (40.0-76.0); PLATELET 204 x1000/uL (130-400); RED BLOOD CELL COUNT 2.98 mill/uL (4.2-5.4); RED CELL DISTRIBUTION WIDTH 23.5 % (11.6-14.6)
[2021-09-16 07:00] LABS: CHLORIDE 109 mEq/L (98-107)
[2021-09-16] MEDS: INSULIN LISPRO 100 UNITS/ML SUBCUT SCH ×2 (07:20→12:20)
[2021-09-16 08:00] VITALS: BP 97/74
[2021-09-16] MEDS: PREDNISONE 20MG TABLET PO SCH (08:34)
[2021-09-16] MEDS: MIDODRINE HCL 5MG TABLET PO SCH ×2 (08:34→12:33)
[2021-09-16] MEDS: FUROSEMIDE 40MG/4ML VIAL IVP SCH ×2 (08:34→08:37)
[2021-09-16] MEDS: PSYLLIUM SEED PACKET PO SCH ×2 (08:34→12:30)
[2021-09-16] MEDS ORDERED: POTASSIUM CHLORIDE 20MEQ TABLET SR PO NR (09:45)
[2021-09-16] MEDS ORDERED: FUROSEMIDE 40MG TABLET PO SCH (09:45)
[2021-09-16 10:00] VITALS: BP 106/48
[2021-09-16 12:00] VITALS: BP 101/48
[2021-09-16 12:21] VITALS: BP 101/49
[2021-09-17] MEDS ORDERED: POTASSIUM CHLORIDE 20MEQ TABLET SR PO SCH (09:00)
== END 2021-09-16 14:37 | DRG 811 ==
LOC: ER 13:30 → 3WST 18:45 → EDBEDREQTM 19:04 → EDBEDREQ 19:04 → ENRESERV 20:39
PROVIDERS: ADMIT Internal Medicine Critical Care Medicine; ATTEND Internal Medicine Critical Care Medicine
PROC: 30233N1 Transfusion of Nonautologous Red Blood Cells into Peripheral Vein, Percutaneous Approach (ICD-10-PCS; principal; 2021-09-13)
DX: D50.9 Iron deficiency anemia, unspecified (principal); J96.20 Acute and chronic respiratory failure, unspecified whether with hypoxia or hypercapnia; I48.19 Other persistent atrial fibrillation; E46 Unspecified protein-calorie malnutrition; I13.0 Hypertensive heart and chronic kidney disease with heart failure and stage 1 through stage 4 chronic kidney disease, or unspecified chronic kidney disease; I82.412 Acute embolism and thrombosis of left femoral vein; K21.9 Gastro-esophageal reflux disease without esophagitis; E11.40 Type 2 diabetes mellitus with diabetic neuropathy, unspecified; Z66 Do not resuscitate; E03.9 Hypothyroidism, unspecified; I49.5 Sick sinus syndrome; N18.9 Chronic kidney disease, unspecified; M10.9 Gout, unspecified; E11.22 Type 2 diabetes mellitus with diabetic chronic kidney disease; E11.649 Type 2 diabetes mellitus with hypoglycemia without coma; E78.00 Pure hypercholesterolemia, unspecified; E87.6 Hypokalemia; F32.9 Major depressive disorder, single episode, unspecified; F43.21 Adjustment disorder with depressed mood; I50.9 Heart failure, unspecified; I25.10 Atherosclerotic heart disease of native coronary artery without angina pectoris; J44.9 Chronic obstructive pulmonary disease, unspecified; K59.00 Constipation, unspecified; E66.9 Obesity, unspecified; M19.90 Unspecified osteoarthritis, unspecified site; R62.7 Adult failure to thrive; Z79.01 Long term (current) use of anticoagulants; Z79.4 Long term (current) use of insulin; Z79.84 Long term (current) use of oral hypoglycemic drugs; Z79.899 Other long term (current) drug therapy; Z86.16 Personal history of COVID-19; Z86.711 Personal history of pulmonary embolism; Z87.01 Personal history of pneumonia (recurrent); Z95.0 Presence of cardiac pacemaker; Z95.5 Presence of coronary angioplasty implant and graft; Z68.29 Body mass index [BMI] 29.0-29.9, adult; Z88.8 Allergy status to other drugs, medicaments and biological substances; Z87.440 Personal history of urinary (tract) infections; Z86.718 Personal history of other venous thrombosis and embolism; Z28.3 Underimmunization status
CPT/HCPCS: 36415; 71045; 80048; 80053; 80162; 82550; 82553; 82962; 83540; 83550; 83880; 84443; 84484; 85025; 86850; 86900; 86920; 93005; 93306; 93970; 94640; 99285; J0696; J1815; J1940; J2270; J7030; J7040; J7060; J7512; P9016